=== PATIENT | female | born 1945 | race Two or more races ===

== ENCOUNTER 2016-12-18 12:08 | Emergency (ER) | payer MEDICARE, MEDICAID ==
[~2016-12-18] VITALS: Ht 160 cm; Wt 77.1 kg
[~2016-12-18 12:08] MED LIST: AMLO5CAP40; GLIP-110; METF-370 PO; OMEP20CA74 PO; PAR20T PO; QUE100T PO; QUET200T44
[2016-12-18 12:48] LABS: Basophils # (auto) 0 uL; Basophils % (auto) 0.4 % (0.0-2.0); Eosinophils # (auto) 0.1 uL; Eosinophils % (auto) 1.5 % (0.0-7.0); Hemoglobin 13.7 g/dL (12.2-16.2); Lymphocytes % (auto) 30.1 % (10.0-50.0); Mean Corpuscular Hemoglobin 29.6 pg (28.0-32.0); Mean Corpuscular Hgb Conc. 33.3 g/dL (32.0-36.0); Mean Corpuscular Volume 88.7 fL (80.0-100.0); Monocytes # (auto) 0.4 uL; Monocytes % (auto) 6.2 % (0.0-12.0); Neutrophils # (auto) 4.1 uL; Neutrophils % (auto) 61.8 % (37.0-80.0); Platelet Count (auto) 405 10^3/uL (140-450); Red Cell Distribution Width 13.6 % (11.8-14.3); White Blood Cell 6.6 10^3/uL (4.4-10.8)
[2016-12-18 13:11] LABS: Albumin 3.9 g/dL (3.4-5.0); Alkaline Phosphatase 110 U/L (45-117); Anion Gap 12 (5-15); Aspartate Aminotransferase 26 U/L (15-37); BUN/Creatinine Ratio 24.5; Bilirubin, Total 0.3 mg/dL (0.2-1.0); Blood Urea Nitrogen 24 mg/dL (7-18); Calcium 9.8 mg/dL (8.5-10.1); Carbon Dioxide 25 mmol/L (21-32); Chloride 97 mmol/L (98-107); GFR African American 72 mL/min; GFR Non-African American 60 mL/min; Glucose 265 mg/dL (74-106); Magnesium 2.1 mg/dL (1.6-2.6); Potassium 5.3 mmol/L (3.5-5.1); Sodium 134 mmol/L (136-145); Total Protein 9.4 g/dL (6.4-8.2)
[2016-12-18] MEDS ORDERED: SODIUM CHLORIDE 0.9% 1,000 ML IV ONE (14:53)
[2016-12-18] MEDS ORDERED: NALBUPHINE HCL 10 MG/1ml INJECTION IV ONE (15:00)
[2016-12-18] MEDS ORDERED: PROMETHAZINE HCL 25 MG/ML 1ML IV PRN (15:00)
[2016-12-18 17:37] VITALS: BP 141/59
== END 2016-12-18 17:52 | disposition home or self-care (01) ==
LOC: ER 12:08
DX: R10.9 Unspecified abdominal pain (principal); E11.9 Type 2 diabetes mellitus without complications; I10 Essential (primary) hypertension; R51 Headache; J45.909 Unspecified asthma, uncomplicated; E78.5 Hyperlipidemia, unspecified; Z90.49 Acquired absence of other specified parts of digestive tract; Z90.710 Acquired absence of both cervix and uterus
CPT/HCPCS: 36415; 71020; 80053; 83690; 83735; 84443; 84484; 85025; 96361; 96374; 96375; 99285; J2300; J2550; J7030; 93005

== ENCOUNTER 2017-06-08 16:19 | Emergency (ER) | payer MEDICARE, MEDICAID ==
[~2017-06-08] VITALS: Ht 154.9 cm; Wt 81.2 kg
[2017-06-08 16:31] VITALS: BP 199/65
[2017-06-08] MEDS ORDERED: MIDAZOLAM DRIP 50 mg/50mL 0 ML IV ONE (16:46)
[2017-06-08] MEDS ORDERED: HYDROcodone-ACET 10/325MG TAB PO ONE (19:30)
== END 2017-06-08 19:54 | disposition home or self-care (01) ==
LOC: ER 16:27
DX: R51 Headache (principal); J03.90 Acute tonsillitis, unspecified; J06.9 Acute upper respiratory infection, unspecified; E11.9 Type 2 diabetes mellitus without complications; I10 Essential (primary) hypertension; J45.909 Unspecified asthma, uncomplicated; Z90.49 Acquired absence of other specified parts of digestive tract; Z90.710 Acquired absence of both cervix and uterus
CPT/HCPCS: 93005; J2250

== ENCOUNTER 2023-09-12 12:40 | Inpatient (IN) | payer MEDICARE, MEDICAID ==
[~2023-09-12] VITALS: Ht 160 cm; Wt 77.9 kg
[~2023-09-12 12:40] MED LIST changes: +AMLO5CAP2; -AMLO5CAP40; -QUET200T44; +QUET200T45
[2023-09-12 13:40] LABS: Basophils # (auto) 0 10 ^3/uL (0-0.2); Basophils % (auto) 0.1 % (0.0-2.0); Eosinophils # (auto) 0.1 10 ^3/uL (0-0.8); Hematocrit 38.6 % (36.0-46.0); Hemoglobin 12.7 g/dL (12.2-16.2); Lymphocytes # (auto) 2.9 10 ^3/uL (0.4-5.4); Lymphocytes % (auto) 29.4 % (10.0-50.0); Mean Corpuscular Hemoglobin 29.6 pg (28.0-32.0); Mean Corpuscular Volume 89.6 fL (80.0-100.0); Monocytes # (auto) 0.8 10 ^3/uL (0-1.3); Monocytes % (auto) 8.5 % (0.0-12.0); Neutrophils # (auto) 5.9 10 ^3/uL (1.6-8.6); Red Cell Distribution Width 15.1 % (11.8-14.3); White Blood Cell 9.7 10^3/uL (4.4-10.8)
[2023-09-12 13:49] LABS: Chloride 103 mmol/L (98-107); Potassium 4.4 mmol/L (3.5-5.1); Sodium 138 mmol/L (136-145)
[2023-09-12 13:50] LABS: Anion Gap 8 (5-15); Calcium 9.6 mg/dL (8.7-10.4); Carbon Dioxide 27 mmol/L (20-30)
[2023-09-12 13:55] LABS: Glucose 93 mg/dL (74-106)
[2023-09-12 14:30] LABS: BUN/Creatinine Ratio 29.2 (10.0-20.0); Blood Urea Nitrogen 26 mg/dL (9-23)
[2023-09-12] MEDS ORDERED: ONDANSETRON HCL 4 MG/2 ML VIAL IV PRN (14:30)
[2023-09-12] MEDS ORDERED: DOCUSATE SOD 100 MG CAP PO PRN (14:30)
[2023-09-12] MEDS ORDERED: DEXTROSE (50%) 50ML SYRG IV PRN (14:30)
[2023-09-12 15:25] VITALS: PULSE 84; RESP 16; O2SAT 96
[2023-09-12] MEDS ORDERED: MORPHINE SULFATE INJ 2 MG/ml SYRG IV PRN (15:30)
[2023-09-12] MEDS ORDERED: NITROGLYCERIN 0.4 MG SL TAB SL PRN (15:30)
[2023-09-12 15:57] LABS: Urine Bacteria FEW /hpf (None Seen); Urine Blood Negative /uL (Negative); Urine Clarity Clear (Clear); Urine Color Colorless (Yellow); Urine Protein, UAD Negative (Negative); Urine Specific Gravity 1.011 (1.001-1.035); Urine Urobilinogen Normal (Negative); Urine WBC 13 /hpf (0 - 5)
[2023-09-12] MEDS: InsuLIN REG 1unit/0.01ml Soln (100units/ml) SC SCH (16:51)
[2023-09-12] MEDS: ACCU-CHEK COMFORT CURVE STRIP VI SCH (16:53)
[2023-09-12] MEDS: cefTRIAXone 1GM/50ML D5W 50 ML IV ONE (16:57)
[2023-09-12] MEDS: hydrALAZINE HCL 20 MG/ML VL IV PRN (18:21)
[2023-09-12] MEDS: HYDROcodone-ACET 5/325MG TAB PO PRN (18:27)
[2023-09-12 22:34] VITALS: BP 185/53; PULSE 86; RESP 18; TEMP 98.2; O2SAT 96
[2023-09-12] MEDS: SODIUM CHLOR 0.9% PF (SALINE LOCK) 10ML VIAL/SYR IV SCH (22:59)
[2023-09-12 23:12] VITALS: BP 185/53; PULSE 86; RESP 18; RESP 20; TEMP 98.2; O2SAT 96
[2023-09-12 23:29] VITALS: BP 137/57
[2023-09-13] VITALS (8 sets, daily range): BP systolic 136–159; BP diastolic 50–96; PULSE 63–85; RESP 15–18; TEMP 97.7–98.6; O2SAT 94–98
[2023-09-13 07:13] LABS: Basophils # (auto) 0.1 10 ^3/uL (0-0.2); Basophils % (auto) 0.5 % (0.0-2.0); Eosinophils # (auto) 0.1 10 ^3/uL (0-0.8); Eosinophils % (auto) 1.3 % (0.0-7.0); Hematocrit 39.3 % (36.0-46.0); Hemoglobin 12.9 g/dL (12.2-16.2); Lymphocytes # (auto) 2.9 10 ^3/uL (0.4-5.4); Lymphocytes % (auto) 28.1 % (10.0-50.0); Mean Corpuscular Hemoglobin 29.3 pg (28.0-32.0); Mean Corpuscular Hgb Conc. 32.8 g/dL (32.0-36.0); Mean Corpuscular Volume 89.5 fL (80.0-100.0); Monocytes # (auto) 0.7 10 ^3/uL (0-1.3); Monocytes % (auto) 7.1 % (0.0-12.0); Neutrophils # (auto) 6.5 10 ^3/uL (1.6-8.6); Nucleated Red Blood Cells % 0.1 %; Red Blood Cells 4.39 10^6/uL (4.0-5.20); Red Cell Distribution Width 14.8 % (11.8-14.3); White Blood Cell 10.3 10^3/uL (4.4-10.8)
[2023-09-13 07:36] LABS: Alanine Aminotransferase 14 U/L (7-40); Albumin 4.2 g/dL (3.2-4.8); Alkaline Phosphatase 99 U/L (46-116); Anion Gap 8 (5-15); Aspartate Aminotransferase 12 U/L (13-40); BUN/Creatinine Ratio 21.1 (10.0-20.0); Bilirubin, Total 0.2 mg/dL (0.2-1.0); Blood Urea Nitrogen 20 mg/dL (9-23); Calcium 9.6 mg/dL (8.7-10.4); Carbon Dioxide 26 mmol/L (20-30); Chloride 104 mmol/L (98-107); Glucose 119 mg/dL (74-106); Potassium 4.4 mmol/L (3.5-5.1); Sodium 138 mmol/L (136-145); Total Protein 7.3 g/dL (5.7-8.2)
[2023-09-13] MEDS: cefTRIAXone 1GM/50ML D5W 50 ML IV SCH (09:34)
[2023-09-13] MEDS: FAMOTIDINE (10MG/ML) 2ML VL IV SCH (09:35)
[2023-09-13] MEDS: ASPirin 81 mg TAB PO SCH (09:38)
[2023-09-13] MEDS ORDERED: GABA-1250 PO (10:47)
[2023-09-13] MEDS ORDERED: PAR20T PO (10:47)
[2023-09-13] MEDS ORDERED: GLIP10TA9 PO (10:47)
[2023-09-13] MEDS ORDERED: HYDR25TA4 PO (10:47)
[2023-09-13] MEDS ORDERED: TEMA30CA PO (10:47)
[2023-09-13] MEDS ORDERED: QUET200T45 PO (10:47)
[2023-09-13] MEDS: amLODIPine BESYLATE 5 MG TAB PO ONE (11:47)
[2023-09-13] MEDS: SODIUM CHLORIDE 0.9% 1,000 ML IV SCH (11:48)
[2023-09-13 11:59] LABS: COVID19 ANTIGEN SOFIA FIA NEGATIVE (NEGATIVE); Rapid Influenza A Negative (Negative); Rapid Influenza B Negative (Negative)
[2023-09-13] MEDS: ACETAMINOPHEN 325 MG TAB PO PRN (17:14)
[2023-09-14] VITALS (7 sets, daily range): BP systolic 105–163; BP diastolic 51–101; PULSE 67–88; RESP 16–18; TEMP 97.7–98.6; O2SAT 92–98
[2023-09-14 06:15] LABS: Alanine Aminotransferase 17 U/L (7-40); Albumin 4.2 g/dL (3.2-4.8); Alkaline Phosphatase 114 U/L (46-116); Anion Gap 10 (5-15); Aspartate Aminotransferase 19 U/L (13-40); BUN/Creatinine Ratio 16.7 (10.0-20.0); Bilirubin, Total 0.2 mg/dL (0.2-1.0); Blood Urea Nitrogen 14 mg/dL (9-23); Calcium 9.5 mg/dL (8.7-10.4); Carbon Dioxide 23 mmol/L (20-30); Chloride 104 mmol/L (98-107); Glucose 157 mg/dL (74-106); Potassium 4.4 mmol/L (3.5-5.1); Sodium 137 mmol/L (136-145); Total Protein 7.4 g/dL (5.7-8.2)
[2023-09-14] MEDS: amLODIPine BESYLATE 5 MG TAB PO SCH (09:08)
[2023-09-14] MEDS ORDERED: CEFD300C2 PO (10:06)
[2023-09-14] MEDS: PARoxetine 20 MG TAB PO ONE (13:40)
[2023-09-14] MEDS: GABAPENTIN 300 MG CAP PO SCH (15:16)
[2023-09-14] MEDS: QUEtiapine FUMARATE 100 MG TAB PO SCH (21:41)
[2023-09-15 01:00] VITALS: BP 136/47; PULSE 75; RESP 18; TEMP 98; O2SAT 94
[2023-09-15 05:00] VITALS: BP 111/50; PULSE 77; RESP 18; TEMP 97.5; O2SAT 95
[2023-09-15 08:00] VITALS: PULSE 72; RESP 18; O2SAT 93
[2023-09-15] MEDS: PARoxetine 20 MG TAB PO SCH (08:47)
[2023-09-15 09:00] VITALS: BP 144/57; PULSE 72; RESP 18; TEMP 97.9; O2SAT 93
[2023-09-15 10:08] VITALS: BP 142/96; PULSE 72; RESP 18; TEMP 36.6; O2SAT 93
== END 2023-09-15 10:55 | disposition home or self-care (01) | DRG 690 ==
LOC: ER 12:40 → TELE 15:17 → TELE-EAST 22:34 → EAST 09-13 15:00
PROVIDERS: ADMIT Nurse Practitioner Family; ATTEND Internal Medicine
DX: N30.00 Acute cystitis without hematuria (principal); I10 Essential (primary) hypertension; J45.909 Unspecified asthma, uncomplicated; F41.9 Anxiety disorder, unspecified; E78.5 Hyperlipidemia, unspecified; G90.9 Disorder of the autonomic nervous system, unspecified; E66.9 Obesity, unspecified; K43.9 Ventral hernia without obstruction or gangrene; Z20.822 Contact with and (suspected) exposure to COVID-19; F32.A Depression, unspecified; E11.65 Type 2 diabetes mellitus with hyperglycemia; Z90.710 Acquired absence of both cervix and uterus; Z90.49 Acquired absence of other specified parts of digestive tract; Z68.30 Body mass index [BMI] 30.0-30.9, adult
CPT/HCPCS: 36415; 71045; 74176; 80048; 80053; 81001; 82962; 83036; 84443; 84484; 85025; 87086; 87426; 87804; 93005; 96365; 96375; 99291; G0378; J1815; J3490

== ENCOUNTER 2023-11-28 12:04 | Emergency (ER) | payer MEDICARE, MEDICAID ==
[~2023-11-28] VITALS: Ht 162.6 cm; Wt 69.3 kg
[~2023-11-28 12:04] MED LIST changes: -AMLO5CAP2; +CEFD300C2 PO; +GABA-1250 PO; -GLIP-110; +GLIP10TA9 PO; +HYDR25TA4 PO; -OMEP20CA74 PO; -QUE100T PO; -QUET200T45; +QUET200T45 PO; +TEMA30CA PO
[2023-11-28 12:54] LABS: Urine Bacteria MOD /hpf (None Seen); Urine Blood Negative /uL (Negative); Urine Clarity Turbid (Clear); Urine Color Light-Yellow (Yellow); Urine Hyaline Cast FEW /lpf (0 - 2); Urine Mucus FEW (None Seen); Urine Protein, UAD TRACE (Negative); Urine Specific Gravity 1.019 (1.001-1.035); Urine Urobilinogen Normal (Negative); Urine WBC 33 /hpf (0 - 5)
[2023-11-28] MEDS: HYDROcodone-ACET 5/325MG TAB PO ONE (12:54)
[2023-11-28] MEDS: SODIUM CHLORIDE 0.9% 500 ML IVB ONE (12:54)
[2023-11-28 13:38] LABS: Basophils # (auto) 0 10 ^3/uL (0-0.2); Basophils % (auto) 0.3 % (0.0-2.0); Eosinophils # (auto) 0.1 10 ^3/uL (0-0.8); Eosinophils % (auto) 1.5 % (0.0-7.0); Hematocrit 36.1 % (36.0-46.0); Hemoglobin 11.9 g/dL (12.2-16.2); Lymphocytes # (auto) 2.5 10 ^3/uL (0.4-5.4); Lymphocytes % (auto) 29.6 % (10.0-50.0); Mean Corpuscular Hemoglobin 29.2 pg (28.0-32.0); Mean Corpuscular Volume 88.3 fL (80.0-100.0); Monocytes # (auto) 0.8 10 ^3/uL (0-1.3); Monocytes % (auto) 9.6 % (0.0-12.0); Platelet Count (auto) 377 10^3/uL (140-450); Red Blood Cells 4.09 10^6/uL (4.0-5.20); Red Cell Distribution Width 15.2 % (11.8-14.3); White Blood Cell 8.4 10^3/uL (4.4-10.8)
[2023-11-28 13:52] LABS: Alanine Aminotransferase 24 U/L (7-40); Albumin 4.3 g/dL (3.2-4.8); Alkaline Phosphatase 109 U/L (46-116); Anion Gap 6 (5-15); Aspartate Aminotransferase 19 U/L (13-40); BUN/Creatinine Ratio 22.2 (10.0-20.0); Bilirubin, Total 0.2 mg/dL (0.2-1.0); Blood Urea Nitrogen 18 mg/dL (9-23); Calcium 9.4 mg/dL (8.7-10.4); Carbon Dioxide 28 mmol/L (20-31); Chloride 107 mmol/L (98-107); Glucose 133 mg/dL (74-106); Lipase 46 U/L (12-53); Potassium 4.5 mmol/L (3.5-5.1); Sodium 141 mmol/L (136-145); Total Protein 7.1 g/dL (5.7-8.2)
[2023-11-28] MEDS ORDERED: CEFD300C2 PO (16:58)
[2023-11-28 17:10] VITALS: BP 160/55; PULSE 59; TEMP 98.2
[2023-11-28] MEDS: cefTRIAXone 1GM/50ML D5W 50 ML IV ONE (17:12)
[2023-11-28 17:52] VITALS: RESP 20; O2SAT 97
== END 2023-11-28 17:55 | disposition home or self-care (01) ==
LOC: ER 12:12
DX: N39.0 Urinary tract infection, site not specified (principal); E11.9 Type 2 diabetes mellitus without complications; F32.A Depression, unspecified; F41.9 Anxiety disorder, unspecified; I10 Essential (primary) hypertension; J45.909 Unspecified asthma, uncomplicated; Z79.84 Long term (current) use of oral hypoglycemic drugs; Z79.899 Other long term (current) drug therapy; Z87.440 Personal history of urinary (tract) infections; Z90.49 Acquired absence of other specified parts of digestive tract; Z90.710 Acquired absence of both cervix and uterus
CPT/HCPCS: 36415; 74176; 80053; 81001; 82962; 83690; 84484; 85025; 87086; 93005; 96361; 96365; 99285; J0696; J7040

== ENCOUNTER 2023-12-31 09:37 | Inpatient (IN) | payer MEDICARE, MEDICAID ==
[~2023-12-31] VITALS: Ht 162.6 cm; Wt 78.2 kg
[2023-12-31] VITALS (8 sets, daily range): BP systolic 147–164; BP diastolic 57–87; PULSE 71–98; RESP 14–19; TEMP 98.3–99.1; O2SAT 94–100
[2023-12-31 10:04] LABS: Basophils # (auto) 0 10 ^3/uL (0-0.2); Basophils % (auto) 0.2 % (0.0-2.0); Eosinophils # (auto) 0.2 10 ^3/uL (0-0.8); Eosinophils % (auto) 3.9 % (0.0-7.0); Hematocrit 36.4 % (36.0-46.0); Hemoglobin 11.9 g/dL (12.2-16.2); Lymphocytes # (auto) 1.4 10 ^3/uL (0.4-5.4); Lymphocytes % (auto) 23.6 % (10.0-50.0); Mean Corpuscular Hemoglobin 29.2 pg (28.0-32.0); Mean Corpuscular Hgb Conc. 32.8 g/dL (32.0-36.0); Mean Corpuscular Volume 88.9 fL (80.0-100.0); Monocytes # (auto) 0.5 10 ^3/uL (0-1.3); Monocytes % (auto) 8.4 % (0.0-12.0); Neutrophils # (auto) 3.9 10 ^3/uL (1.6-8.6); Neutrophils % (auto) 63.9 % (37.0-80.0); Platelet Count (auto) 378 10^3/uL (140-450); Red Blood Cells 4.09 10^6/uL (4.0-5.20); Red Cell Distribution Width 15.4 % (11.8-14.3); White Blood Cell 6.1 10^3/uL (4.4-10.8)
[2023-12-31 10:20] LABS: Alanine Aminotransferase 34 U/L (7-40); Albumin 4.2 g/dL (3.2-4.8); Alkaline Phosphatase 109 U/L (46-116); Anion Gap 9 (5-15); Aspartate Aminotransferase 25 U/L (13-40); BUN/Creatinine Ratio 18.3 (10.0-20.0); Bilirubin, Total 0.2 mg/dL (0.2-1.0); Blood Urea Nitrogen 17 mg/dL (9-23); Calcium 9.4 mg/dL (8.7-10.4); Carbon Dioxide 25 mmol/L (20-31); Chloride 109 mmol/L (98-107); Glucose 203 mg/dL (74-106); Potassium 3.8 mmol/L (3.5-5.1); Sodium 143 mmol/L (136-145); Total Protein 7.5 g/dL (5.7-8.2)
--- NOTE | 2023-12-31 10:20 | DVH ---
CLINICAL INFORMATION: 78 years old, Female; chest pain. TECHNIQUE: Single AP portable chest radiograph was obtained. COMPARISON: XY CHEST PORTABLE on DOS: 09/13/23 FINDINGS: Lungs: Mild atelectasis in the lung bases. No focal consolidation. No pneumothorax or pleural effusio n. Cardiac: Heart size is within normal limits. Pulmonary vasculature: Unremarkable. Mediastinum/joanie: Moderate atherosclerotic calcification of the aortic arch. Bones: No acute osseous abnormality identified. Other: Surgical clips in the right upper abdomen from prior cholecystectomy. IMPRESSION: 1. No evidence of acute disease in the chest. 2. Nonacute findings as detailed above.
--- NOTE | 2023-12-31 10:49 | ECG ---
[facility] Test Date: 2023-12-31 Test Time: 09:45:46 Pat Name: BC VASQUEZ Department: ER Room: [facility]2T Gender: F Technology Officer: LUDWIG : 1945 Requested By: MYRIAM JOHNSON Order Number: [id number] Reading MD: Benji Russell Measurements Intervals [place] Rate: 70 P: 49 HI: 167 QRS: 21 QRSD: 97 T: -28 QT: 377 QTc: 407 Interpretive Statements Sinus rhythm Probable LVH with secondary repol abnrm Electronically Signed On 01-05-2024 16:57:06 PST by Benji Russell Please click the below link to view image of tracing.
--- NOTE | 2023-12-31 10:53 | ED.PDOC ---
History of Present Illness HPI Comments This is a 78-year-old female who comes in with chief complaint of chest pain that is substernal in nature for approximately four days. The patient was also had a cough with the yellow sputum. At this time the patient says that the chest pain is an 8/10. There has been some fever as well as chills. The skyla ent does have a history of asthma and states that the shortness a breath may be associated with asthma. The patient denies any nausea or vomiting. The patient was able to ambulate into the emergency department's without any difficulty. Chief Complaint: Chest Pain Time Seen by MD: 09:42 Primary Care Provider: FLORENCIO Mello Notes: Nurses Notes, Medications, Allergies (No allergies to medications) Allergies: Coded Allergies: NO KNOWN ALLERGIES (Verified , 02/19/14) Home Meds Active Scripts Cefdinir (Cefdinir) 300 Mg Cap, 1 CAP PO BID for 5 Days, #14 CAP Prov:RAYMON TRIMBLE MD 11/28/23 Cefdinir (Cefdinir) 300 Mg Cap, 1 CAP PO BID for 7 Days, #14 CAP Prov:ADELA RIVAS MD 09/14/23 Reported Medications Metformin Hydrochloride (Metformin Hcl) 500 Mg Tab, 1000 MG PO BID for 30 Days, MG 09/13/23 Glipizide (Glipizide) 10 Mg Tab, 10 MG PO BID for 30 Days, MG 09/13/23 Temazepam (Temazepam) 30 Mg Cap, 15 MG PO QPM, CAP 09/13/23 Quetiapine Fumerate (QUETIAPINE FUMARATE) 200 Mg Tab, 200 MG PO QPM for 30 Days, MG 09/13/23 Paroxetine (PAXIL TABLET) 20 Mg Tb, 30 MG PO QAM, TAB 09/13/23 Hydrochlorothiazide (Hydrochlorothiazide) 25 Mg Tab, 25 MG PO DAILY for 30 Days, MG 09/13/23 Gabapentin (Gabapentin) 300 Mg Cap, 300 MG PO TID for 30 Days, MG 09/13/23 Information Source: Patient Mode of Arrival: Ambulatory Severity: Moderate Timing: Days Duration: Since onset Prehospital treatment: None Associated signs and symptoms Substernal chest pain associated with cough, fever and chills Past Medical History PAST MEDICAL HISTORY: Anxiety, Asthma, Depression, DM, High Lipids, HTN, UTI'S Surgical History: Cholecystectomy, Hysterectomy TECHNICAL SPECIALIST CYTOGENETICS History: No Pertinent TECHNICAL SPECIALIST CYTOGENETICS History Family History Family History: No family hx of DM, No family hx of HTN Social History Smoker: Non-Smoker Alcohol: Denies ETOH Use Drugs: Denies Drug Use Lives In: Home Constitutional: reports: fever; denies: chills, diaphoresis, fatigue, malaise, sweats, weakness, others EENTM: denies: blurred vision, double vision, ear bleeding, ear discharge, ear drainage, ear pain, ear ringing, eye pain, eye redness, hearing loss, mouth pain, mouth swelling, nasal discharge, nose bleeding, nose congestion, nose pain, photophobia, tearing, throat pain, throat swelling, voice changes, others Respiratory: reports: cough; denies: hemoptysis, orthopnea, SOB at rest, shortness of breath, SOB with excertion, stridor, wheezing, others Cardiovascular: reports: chest pain; denies: dizzy spells, diaphoresis, Dyspnea on exertion, edema, irregular heart beat, left arm pain, lightheadedness, palpitations, PND, syncope, others Gastrointestinal: denies: abdomen distended, abdominal pain, blood streaked bowels, constipated, diarrhea, dysphagia, difficulty swallowing, hematemesis, melena, nausea, poor appetite, poor fluid intake, rectal bleeding, rectal pain, vomiting, others Genitourinary: denies: abnormal vagina bleeding, burning, dyspareunia, dysuria, flank pain, frequency, hematuria, incontinence, pain, , vagina discharge, urgency, others Neurological: denies: dizziness, fainting, headache, left sided numbness, left sided weakness, numbness, paresthesia, pre-existing deficit, right sided numbness, right sided weakness, seizure, speech problems, tingling, tremors, weakness, others Musculoskeletal: denies: back pain, gout, joint pain, joint swelling, muscle pain, muscle stiffness, neck pain, others Integumetry: denies: bruises, change in color, change in hair/nails, dryness, laceration, lesions, lumps, rash, wounds, others Allergic/Immunocompromised: denies: Difficulty Healing, Frequent Infections, Hives, Itching, others Hematologic/Lymphatic: denies: anemia, blood clots, easy bleeding, easy bruising, swollen glands, others Endocrine: denies: excessive hunger, excessive sweating, excessive thirst, excessive urination, flushing, intolerance to cold, intolerance to heat, unexplained weight gain, unexplained weight loss, others Psychiatric: denies: anxiety, bipolar disorder, depression, hopeless, panic disorder, schizophrenia, sleepless, suicidal, others Physical Exam General Appearance: Moderate Distress HEENT: Normal ENT Inspection, Pharynx Normal, TMs Normal Neck: Full Range of Motion, Non-Tender, Normal, Normal Inspection Respiratory: Chest Non-Tender, Lungs Clear, No Accessory Muscle Use, No Respiratory Distress, Normal Breath Sounds Cardiovascular: No Edema, No JVD, No Murmur, No Gallop, Normal Peripheral Pulses, Regular Rate/Rhythm Breast Exam: Deferred Gastrointestinal: No Organomegaly, Non Tender, No Pulsatile Mass, Normal Bowel Sounds, Soft Genitalia: Deferred Pelvic: Deferred Rectal: Deferred Extremities: No calf tenderness, Normal capillary refill, Normal inspection, Normal range of motion, Non-tender, No pedal edema Musculoskeletal : Apperance: Normal Neurologic: Alert, mixer and scaler II-XII nml as Tested, No Motor Deficits, Normal Affect, Normal Mood, No Sensory Deficits Cerebellar Function: Normal Reflexes: Normal Skin: Dry, Normal Color, Warm Lymphatic: No Adenopathy Was a procedure done? Was a procedure done?: No EKG EKG : Pulse Rate (adult): 70 [place]: Normal Cardiac Rhythm: NSR Block: None ST: Nonsp Differential Dx Considerations may include: Generalized weakness, chest pain, ACS, DE X-Ray, Labs, Meds, VS Vital Signs Date Time Temp Pulse Resp B/P (MAP) Pulse Ox O2 Delivery O2 Flow Rate FiO2 12/31/23 10:53 70 12/31/23 10:05 Room Air* 0 21 12/31/23 10:02 98.3 68 18 116/53 (74) 98 98.3 12/31/23 09:55 98.0 74 20 165/77 (106) 98 12/31/23 09:55 74 20 98 Room Air 12/31/23 09:45 70 Lab Test 12/31/23 10:40 12/31/23 09:40 Range/Units Lactic Acid Level 1.8 0.4-2.0 mmol/L Troponin I High Sensitivity Pending < 3 L </=34 ng/L White Blood Count 6.1 4.4-10.8 10^3/uL Red Blood Count 4.09 4.0-5.20 10^6/uL Hemoglobin 11.9 L 12.2-16.2 g/dL Hematocrit 36.4 36.0-46.0 % Mean Corpuscular Volume 88.9 80.0-100.0 fL Mean Corpuscular Hemoglobin 29.2 28.0-32.0 pg Mean Corpuscular Hemoglobin Concent 32.8 32.0-36.0 g/dL Red Cell Distribution Width 15.4 H 11.8-14.3 % Platelet Count 378 140-450 10^3/uL Mean Platelet Volume 7.4 6.9-10.8 fL Neutrophils (%) (Auto) 63.9 37.0-80.0 % Lymphocytes (%) (Auto) 23.6 10.0-50.0 % Monocytes (%) (Auto) 8.4 0.0-12.0 % Eosinophils (%) (Auto) 3.9 0.0-7.0 % Basophils (%) (Auto) 0.2 0.0-2.0 % Neutrophils # (Auto) 3.9 1.6-8.6 10 ^3/uL Lymphocytes # (Auto) 1.4 0.4-5.4 10 ^3/uL Monocytes # (Auto) 0.5 0-1.3 10 ^3/uL Eosinophils # (Auto) 0.2 0-0.8 10 ^3/uL Basophils # (Auto) 0 0-0.2 10 ^3/uL Nucleated Red Blood Cells 0.0 % Sodium Level 143 136-145 mmol/L Potassium Level 3.8 3.5-5.1 mmol/L Chloride Level 109 H 98-107 mmol/L Carbon Dioxide Level 25 20-31 mmol/L Anion Gap 9 5-15 Blood Urea Nitrogen 17 9-23 mg/dL Creatinine 0.93 0.550-1.02 mg/dL Glomerular Filtration Rate Calc 64 >90 mL/min BUN/Creatinine Ratio 18.3 10.0-20.0 Serum Glucose 203 H 74-106 mg/dL Calcium Level 9.4 8.7-10.4 mg/dL Total Bilirubin 0.2 0.2-1.0 mg/dL Aspartate Amino Transferase (AST) 25 13-40 U/L Alanine Aminotransferase (ALT) 34 7-40 U/L Alkaline Phosphatase 109 46-116 U/L Total Protein 7.5 5.7-8.2 g/dL Albumin 4.2 3.2-4.8 g/dL IV Hep-Lock was established The patient's CBC is within normal limits The chemistry panel is within normal limits The lactic acid level is within normal limits At this time, the patient was being admitted to the hospitalist Chest x-ray shows: No sign of any abnormalities A cardiology consult will be ordered The patient was being admitted to the hospitalist Images Reviewed?: Images reviewed and evaluated by me Time of 1ST Reevaluation: 10:52 Reevaluation 1ST: Unchanged Patient Education/Counseling: Diagnosis, Treatment, Prognosis Family Education/Counseling: No Family Present Departure 1 Departure Time of Disposition: 10:51 Impression: Primary Impression: Acute coronary syndrome Disposition: 09 ADMITTED INPATIENT [facility]mit to: [facility] Condition: Fair Critical Care Note Critical Care Time?: Yes (35 min-critical care time only) Stability Stability form required: Yes Unstable for transfer: Telemetry monitoring (Telemetry monitoring required), ED Physician Assesment (Clinical assesment) Heart Score Heart Score: Heart Score Response (Comments) Value History Moderate Suspicious 1 EKG Repolarization Disturb 1 Age >65 2 Risk Factors >3 or Hx ASHD 2 Troponin Normal limit 0 Total 6 MYRIAM JOHNSON MD Dec 31, 2023 10:53
--- NOTE | 2023-12-31 11:46 | ECG ---
[facility] Test Date: 2023-12-31 Test Time: 11:45:48 Pat Name: BC VASQUEZ Department: ED Room: [facility]2T Gender: F Employment Coach: : 1945 Requested By: MYRIAM JOHNSON Order Number: [id number] Reading MD: Benji Russell Measurements Intervals [place] Rate: 67 P: 18 NC: 185 QRS: 5 QRSD: 85 T: 50 QT: 402 QTc: 425 Interpretive Statements Sinus rhythm Electronically Signed On 01-05-2024 16:58:53 PST by Benji Russell Please click the below link to view image of tracing.
[2023-12-31] MEDS ORDERED: NITROGLYCERIN 0.4 MG SL TAB SL PRN (12:30)
[2023-12-31] MEDS ORDERED: ALBUTEROL SULF 2.5 MG/0.5ML(0.5%) NEB SOLN NEB PRN (12:30)
[2023-12-31] MEDS ORDERED: HYDROcodone-ACET 5/325MG TAB PO PRN (12:30)
[2023-12-31] MEDS: methylPREDNISolone SOD SUCC 125 MG/2 ML VL IV SCH (12:30)
[2023-12-31] MEDS ORDERED: ACETAMINOPHEN 325 MG TAB PO PRN (12:30)
[2023-12-31] MEDS ORDERED: IPRATROPIUM BROM 0.5 MG/2.5ML INH SOL NEB PRN (12:30)
[2023-12-31] MEDS ORDERED: DEXTROSE (50%) 50ML SYRG IV PRN (12:30)
[2023-12-31] MEDS ORDERED: ONDANSETRON HCL 4 MG/2 ML VIAL IV PRN (12:30)
[2023-12-31] MEDS ORDERED: MORPHINE SULFATE INJ 2 MG/ml SYRG IV PRN ×2 (12:30)
--- NOTE | 2023-12-31 12:35 | DVHHP2 ---
History of Present Illness Reason for Visit: Cough History of Present Illness This 78-year-old female presents in the ED with a chief complaint of shortness of breath. The patient reports progressive shortness of breath associated with cough, mucus, fever, chills, and chest pain when coughing started four days ago. Patient denies contact with people that are sick. Currently denies chest pain, MITCHELL, shortness of breath, abdominal pain, or other acute symptoms. Past medical history of asthma, diabetes, hypertension, depression, hyperlipidemia, and anxiety. Past Medical History As stated in HPI Past Surgical History Cholecystectomy Hysterectomy Family History Reviewed, non-contributory to the management of this case. Past Social History The patient lives at home, denies smoking, alcohol or illicit drugs abuse. Review of Systems Constitutional: Yes: Malaise; No: Fever, Chills, Sweats, Weakness, Other Eyes: No: Pain, Vision change, Conjunctivae inflammation, Eyelid inflammation, Other, Redness ENT: No: Ear pain, Ear discharge, Nose pain, Nose discharge, Nose congestion, Mouth pain, Mouth swelling, Throat pain, Throat swelling, Other Respiratory: Cough, Shortness of breath, Sputum; No: Dry, SOB with excertion, Wheezing, Hemoptysis, Pleuritic Pain, Wheezing, Other Cardiovascular: Chest Pain; No: Palpitations, Orthopnea, Paroxysmal Noc. Dyspnea, Edema, Lt Headedness, Other Gastrointestinal: No: Nausea, Vomiting, Abdominal Pain, Diarrhea, Constipation, Melena, Hematochezia, Other Genitourinary: No Dysuria, No Frequency, No Incontinence, No Hematuria, No Retention, No Other Musculoskeletal: No: other, neck pain, shoulder pain, arm pain, back pain, hand pain, leg pain, foot pain Skin: No: Rash, Lesions, Jaundice, Bruising, Other Neurological: No: Weakness, Numbness, Incoordination, Change in speech, Confusion, Seizures, Other Allergies: Coded Allergies: NO KNOWN ALLERGIES (Verified , 02/19/14) Exam Vital Signs Vital Signs Date Time Temp Pulse Resp B/P (MAP) Pulse Ox O2 Delivery O2 Flow Rate FiO2 12/31/23 12:13 73 16 177/80 (112) 98 12/31/23 10:05 Room Air* 0 21 12/31/23 10:02 98.3 98.3 General Appearance: Alert, Oriented X3, Cooperative, mild distress HEENT: Atraumatic, PERRLA, EOMI Respiratory: Clear to auscultation Cardiovascular: Regular rate, Normal S1, Normal S2, No murmurs Abdominal: Normal bowel sounds, Soft, No tenderness, No hepatospenomegaly Extremities: No clubbing, No cyanosis, No edema, Normal pulses Skin: No rashes, No breakdown, No significant lesion Neuro: Normal gait, Normal speech, Strength at 5/5 X4 ext, Normal tone, Sensation intact Psych/Mental Status: Mental status NL Labs/Xrays Labs Test 12/31/23 10:40 12/31/23 09:40 Range/Units Lactic Acid Level 1.8 0.4-2.0 mmol/L Troponin I High Sensitivity < 3 L </=34 ng/L White Blood Count 6.1 4.4-10.8 10^3/uL Red Blood Count 4.09 4.0-5.20 10^6/uL Hemoglobin 11.9 L 12.2-16.2 g/dL Hematocrit 36.4 36.0-46.0 % Mean Corpuscular Volume 88.9 80.0-100.0 fL Mean Corpuscular Hemoglobin 29.2 28.0-32.0 pg Mean Corpuscular Hemoglobin Concent 32.8 32.0-36.0 g/dL Red Cell Distribution Width 15.4 H 11.8-14.3 % Platelet Count 378 140-450 10^3/uL Mean Platelet Volume 7.4 6.9-10.8 fL Neutrophils (%) (Auto) 63.9 37.0-80.0 % Lymphocytes (%) (Auto) 23.6 10.0-50.0 % Monocytes (%) (Auto) 8.4 0.0-12.0 % Eosinophils (%) (Auto) 3.9 0.0-7.0 % Basophils (%) (Auto) 0.2 0.0-2.0 % Neutrophils # (Auto) 3.9 1.6-8.6 10 ^3/uL Lymphocytes # (Auto) 1.4 0.4-5.4 10 ^3/uL Monocytes # (Auto) 0.5 0-1.3 10 ^3/uL Eosinophils # (Auto) 0.2 0-0.8 10 ^3/uL Basophils # (Auto) 0 0-0.2 10 ^3/uL Nucleated Red Blood Cells 0.0 % Sodium Level 143 136-145 mmol/L Potassium Level 3.8 3.5-5.1 mmol/L Chloride Level 109 H 98-107 mmol/L Carbon Dioxide Level 25 20-31 mmol/L Anion Gap 9 5-15 Blood Urea Nitrogen 17 9-23 mg/dL Creatinine 0.93 0.550-1.02 mg/dL Glomerular Filtration Rate Calc 64 >90 mL/min BUN/Creatinine Ratio 18.3 10.0-20.0 Serum Glucose 203 H 74-106 mg/dL Calcium Level 9.4 8.7-10.4 mg/dL Total Bilirubin 0.2 0.2-1.0 mg/dL Aspartate Amino Transferase (AST) 25 13-40 U/L Alanine Aminotransferase (ALT) 34 7-40 U/L Alkaline Phosphatase 109 46-116 U/L Total Protein 7.5 5.7-8.2 g/dL Albumin 4.2 3.2-4.8 g/dL OCEDURE(s): CXRP - CHEST PORTABLE REASON: CP ORDER NUMBER(s): [id number], ACCESSION NUMBER(s): [id number] CLINICAL INFORMATION: 78 years old, Female; chest pain. TECHNIQUE: Single AP portable chest radiograph was obtained. COMPARISON: XY CHEST PORTABLE on DOS: 09/13/23 FINDINGS: Lungs: Mild atelectasis in the lung bases. No focal consolidation. No pneumot horax or pleural effusion. Cardiac: Heart size is within normal limits. Pulmonary vasculature: Unremarkable. Mediastinum/joanie: Moderate atherosclerotic calcification of the aortic arch. Bones: No acute osseous abnormality identified. Other: Surgical clips in the right upper abdomen from prior cholecystectomy. IMPRESSION: 1. No evidence of acute disease in the chest. 2. Nonacute findings as detailed above. Assessment/Plan Assessment/Plan # acute on chronic respiratory failure # acute asthma exacerbation # rule out Covid-19 # rule out influenza Admit to telemetry unit DuoNeb O2 supplement Steroids Chest x-ray in a.m. 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
[2023-12-31] MEDS: GABAPENTIN 300 MG CAP PO SCH (14:04)
[2023-12-31 15:46] LABS: COVID19 ANTIGEN SOFIA FIA NEGATIVE (NEGATIVE); Rapid Influenza A Negative (Negative); Rapid Influenza B Negative (Negative)
[2023-12-31] MEDS: ACCU-CHEK COMFORT CURVE STRIP VI SCH (17:13)
[2023-12-31] MEDS: InsuLIN REG 1unit/0.01ml Soln (100units/ml) SC SCH (17:17)
[2023-12-31] MEDS: ALBUTEROL SULF 2.5 MG/0.5ML(0.5%) NEB SOLN NEB SCH (19:30)
[2023-12-31] MEDS: IPRATROPIUM BROM 0.5 MG/2.5ML INH SOL NEB SCH (19:30)
[2023-12-31] MEDS: QUEtiapine FUMARATE 100 MG TAB PO SCH (21:29)
[2023-12-31] MEDS: glipiZIDE 5 MG TAB PO SCH (21:29)
[2023-12-31] MEDS: TEMAZEPAM 15 MG CAP PO PRN (21:37)
[2023-12-31] MEDS ORDERED: GEMF-66 PO (22:15)
[2024-01-01] VITALS (16 sets, daily range): BP systolic 107–171; BP diastolic 45–61; PULSE 70–94; RESP 16–20; TEMP 97.5–98.6; O2SAT 93–100
[2024-01-01] MEDS: PARoxetine 20 MG TAB PO SCH (06:04)
[2024-01-01 06:40] LABS: Basophils # (auto) 0 10 ^3/uL (0-0.2); Basophils % (auto) 0.1 % (0.0-2.0); Eosinophils # (auto) 0 10 ^3/uL (0-0.8); Hematocrit 34.2 % (36.0-46.0); Hemoglobin 11.6 g/dL (12.2-16.2); Lymphocytes # (auto) 1.3 10 ^3/uL (0.4-5.4); Lymphocytes % (auto) 12.7 % (10.0-50.0); Mean Corpuscular Hemoglobin 29.5 pg (28.0-32.0); Mean Corpuscular Hgb Conc. 33.8 g/dL (32.0-36.0); Mean Corpuscular Volume 87.4 fL (80.0-100.0); Monocytes # (auto) 0.5 10 ^3/uL (0-1.3); Monocytes % (auto) 5.1 % (0.0-12.0); Neutrophils # (auto) 8.5 10 ^3/uL (1.6-8.6); Neutrophils % (auto) 82.1 % (37.0-80.0); Nucleated Red Blood Cells % 0.1 %; Platelet Count (auto) 399 10^3/uL (140-450); Red Blood Cells 3.92 10^6/uL (4.0-5.20); Red Cell Distribution Width 15.4 % (11.8-14.3); White Blood Cell 10.3 10^3/uL (4.4-10.8)
[2024-01-01 06:55] LABS: Alanine Aminotransferase 26 U/L (7-40); Alkaline Phosphatase 100 U/L (46-116); Anion Gap 12 (5-15); Calcium 9.4 mg/dL (8.7-10.4); Carbon Dioxide 20 mmol/L (20-31); Chloride 110 mmol/L (98-107); Glucose 208 mg/dL (74-106); Potassium 4.1 mmol/L (3.5-5.1); Sodium 142 mmol/L (136-145)
[2024-01-01 06:57] LABS: Albumin 3.9 g/dL (3.2-4.8); Aspartate Aminotransferase 17 U/L (13-40)
[2024-01-01 06:58] LABS: Bilirubin, Total 0.2 mg/dL (0.2-1.0)
[2024-01-01 07:37] LABS: BUN/Creatinine Ratio 24.2 (10.0-20.0); Blood Urea Nitrogen 24 mg/dL (9-23)
--- NOTE | 2024-01-01 08:05 | DVH ---
Procedure: XY CHEST PORTABLE 01/01/2024 07:43 AM Indication: sob Comparison: XY CHEST PORTABLE on DOS: 12/31/23, XY CHEST PORTABLE on DOS: 09/13/23 TECHNIQUE: XY CHEST PORTABLE FINDINGS: Medical devices: None. Cardiomediastinal: The heart is normal in size. Pulmonary vasculature is within normal limits. Athero sclerotic calcification of the aortic arch noted. Lungs: No focal pulmonary opacity is seen. The costophrenic angles are clear. No pneumothorax. Bones/soft tissues: No acute abnormality is noted. IMPRESSION: 1. No acute cardiopulmonary disease.
[2024-01-01 08:11] LABS: Urine Bacteria None Seen /hpf (None Seen)
[2024-01-01 08:18] LABS: Urine Blood Negative /uL (Negative); Urine Budding Yeast MANY /hpf (None Seen); Urine Clarity Clear (Clear); Urine Color Yellow (Yellow); Urine Hyaline Cast FEW /lpf (0 - 2); Urine Mucus FEW (None Seen); Urine Protein, UAD 1+ (Negative); Urine Specific Gravity 1.026 (1.001-1.035); Urine Urobilinogen Normal (Negative); Urine WBC 5 /hpf (0 - 5); Urine pH 5.5 (5.0-9.0)
[2024-01-01] MEDS: ENOXAPARIN SOD 40 MG/0.4 ML SYRINGE SC SCH (10:12)
[2024-01-01] MEDS: hydroCHLOROthiazide 25 MG TAB PO SCH (10:19)
[2024-01-01] MEDS: INSULIN LANTUS (GLARGINE) 1 /0.01ml (100units/ml) SC ONE (11:45)
--- NOTE | 2024-01-01 11:48 | DVHPN2 ---
Subjective 78-year-old female with a history of asthma came with a cough productive of yellow sputum and shortness of breaths and chest pain Chest x-ray is negative for pneumonia She has wheezing Troponins are negative Changes from previous H/P or p: Changes Eyes: No Pain, No Vision change, No Conjunctivae inflammation, No Eyelid inflammation, No Other, No Redness ENT: No Ear pain, No Ear discharge, No Nose pain, No Nose discharge, No Nose congestion, No Mouth pain, No Mouth swelling, No Throat pain, No Throat swelling, No Other Cardiovascular: Chest Pain; No Palpitations, No Orthopnea, No Paroxysmal Noc. Dyspnea, No Edema, No Lt Headedness, No Other Respiratory: Cough; No Dry; Shortness of breath; No SOB with excertion, No Wheezing, No Hemoptysis, No Pleuritic Pain; Sputum; No Other Gastrointestinal: No Nausea, No Vomiting, No Abdominal Pain, No Diarrhea, No Constipation, No Melena, No Hematochezia, No Other Genitourinary: No Dysuria, No Frequency, No Incontinence, No Hematuria, No Retention, No Other Musculoskeletal: No other, No neck pain, No shoulder pain, No arm pain, No back pain, No hand pain, No leg pain, No foot pain Skin: No Rash, No Lesions, No Jaundice, No Bruising, No Other Objective Vitals Vital Signs Date Time Temp Pulse Resp B/P (MAP) Pulse Ox O2 Delivery O2 Flow Rate FiO2 01/01/24 10:19 143/58 01/01/24 09:00 97.5 84 18 93 97.5 01/01/24 08:10 Room Air* 0 21 Intake/Output Intake and Output 01/01/24 07:00 Intake Total 700 ml Balance 700 ml Intake Oral 700 ml # Voids 2 General Appearance: Alert, Oriented X3, Cooperative, mild distress Lungs: Other (Diffuse bilateral wheezing) Cardiovascular: Regular rate, Normal S1, Normal S2, No murmurs Abdomen: Normal bowel sounds, Soft, No tenderness Extremities: No edema Medications Current Medications Medications Dose Ordered Sig/Noreen Route Start Time Stop Time Status Last Admin Dose Admin Acetaminophen/ Hydrocodone Bitart 1 tab Q4HP PRN PO 12/31/23 12:30 Ondansetron HCl 4 mg Q4HP PRN IV 12/31/23 12:30 Enoxaparin Sodium 40 mg DAILY SC 01/01/24 10:00 01/01/24 10:12 40 MG Acetaminophen 650 mg Q6HP PRN PO 12/31/23 12:30 Morphine Sulfate 2 mg Q4HPRN PRN IV 12/31/23 12:30 Nitroglycerin 0.4 mg Q5MINP PRN SL 12/31/23 12:30 Morphine Sulfate 2 mg Q30M PRN IV 12/31/23 12:30 Albuterol 2.5 mg Q4HPRN PRN NEB 12/31/23 12:30 Albuterol 2.5 mg Q6HWA NEB 12/31/23 18:00 01/01/24 06:36 2.5 MG Ipratropium [place] 0.5 mg Q4HPRN PRN NEB 12/31/23 12:30 Ipratropium [place] 0.5 mg Q6HWA NEB 12/31/23 18:00 01/01/24 06:36 0.5 MG Methylprednisolone Sodium Succinate 60 mg BID IV 12/31/23 12:30 01/01/24 10:11 60 MG Gabapentin 300 mg TID PO 12/31/23 14:00 01/01/24 06:04 300 MG Hydrochlorothiazide 25 mg DAILY PO 01/01/24 10:00 01/01/24 10:19 25 MG Paroxetine HCl 30 mg QAM PO 01/01/24 07:00 01/01/24 06:04 30 MG Glipizide 10 mg BID PO 12/31/23 22:00 01/01/24 10:19 10 MG Quetiapine Fumarate 200 mg HS PO 12/31/23 22:00 12/31/23 21:29 200 MG Temazepam 15 mg QHSP PRN PO 12/31/23 22:00 12/31/23 21:37 15 MG Diagnostic Test (Pha) 1 strip ACHS 12/31/23 17:00 01/01/24 06:04 1 STRIP Insulin Human Regular ACHS SC 12/31/23 17:00 01/01/24 06:19 3 UNITS Dextrose 50 ml UD PRN IV 12/31/23 12:30 Hydralazine HCl 10 mg Q6HP PRN IV 12/31/23 12:45 Laboratory Results Laboratory Tests 01/01/24 05:29 Chemistry Test 01/01/24 05:29 Albumin 3.9 g/dL (3.2-4.8) Calcium Level 9.4 mg/dL (8.7-10.4) Total Protein 7.0 g/dL (5.7-8.2) LFT Test 01/01/24 05:29 Alanine Aminotransferase (ALT) 26 U/L (7-40) Alkaline Phosphatase 100 U/L (46-116) Aspartate Amino Transferase (AST) 17 U/L (13-40) Total Bilirubin 0.2 mg/dL (0.2-1.0) Urinalysis Test 01/01/24 08:00 Urine Color Yellow (Yellow) Urine Clarity Clear (Clear) Urine pH 5.5 (5.0-9.0) Urine Specific [place] 1.026 (1.001-1.035) Urine Protein 1+ (Negative) H Urine Ketones Trace (Negative) Urine Blood Negative /uL (Negative) Urine Nitrite Negative (Negative) Urine Bilirubin Negative (Negative) Urine Urobilinogen Normal mg/dL (Negative) Urine Leukocyte Esterase Negative /uL (Negative) Urine RBC 1 /hpf (0 - 4) Urine WBC 5 /hpf (0 - 5) Urine Squamous Epithelial Cells Few /hpf (<5) Urine Bacteria None seen /hpf (None Seen) Urine Hyaline Casts Few /lpf (0 - 2) Urine Granular Casts Few /lpf (0) Urine Mucus Few (None Seen) Urine Yeast (Budding) Many /hpf (None Seen) Urine Glucose 1+ mg/dL (Normal) H Microbiology Microbiology Date/Time Source Procedure Growth Status 12/31/23 10:40 Blood Blood Culture - Preliminary NO GROWTH AFTER 24 HOURS OF INCUBATION. Resulted Assessment/Plan Assessment/Plan Acute respiratory distress Asthma exacerbation Acute bronchitis Type 2 diabetes Obesity Hypertension History of depression and anxiety Dyslipidemia Plan Oxygen p.r.n. Continue steroids IV Med neb treatments as needed Add Zithromax IV Resume Lantus 15 units twice a day Full code Advance directives discussed for 18 minutes Resume the home medications Accu-Cheks Plan discussed with: Patient Date of Service: Jan 01, 2024 Billing Provider: MICHELLE BEARD MD Common Visit Codes: [id number] INP/OBS CARE(HIGH) Secondary Visit Codes: [id number] CARE PLAN 30 MINUTES MICHELLE BEARD MD Jan 01, 2024 11:47
[2024-01-01] MEDS: AZITHROMYCIN 500MG/ 250ML 250 ML IV ONE (12:42)
--- NOTE | 2024-01-01 13:13 | DVHSR ---
APPROVED REPORT EXAM: Two-dimensional and M-mode echocardiogram with Doppler and color Doppler. Blood Pressure: 107/46 mmHg INDICATION r/o ACS RISK FACTORS Height: 5'4", Weight: 172 DIMENSIONS LVDd3.9 (3.8-5.7cm)LA (2D)4.1 (1.9-4.0cm)Aortic Root (2.0-3.7cm) LVDs2.1 (2.5-4.0cm)LA (MM) (1.9-4.0cm)Aortic Cusp Exc (1.5-2.0cm) EF (%) 79.0 (55-70%)Rt. Atrium3.6 (1.9-4.0cm)Asc. Aorta cm IVSd1.3 (0.7-1.1cm)RV (D) (1.8-2.4cm) Mitral Valve MitralMitral Stenosis E wave0.75m/sMV Mean GR.mmHg A wave1.05m/sMV Peak GR.mmHg E/A ratio0.72D MVAcm2 DECEL [id number] 1/2 Timems Aortic Valve Aortic ValveAortic Stenosis V11.66m/Gigi Mean GR.9mmHg V21.67m/Gigi Peak GR.11mmHg LVOT Diameter2.0 (1.8-2.4cm)Doppler AVA3.12cm2 Tricuspid Valve TR Velocity2.56m/s [id number] Other Information Quality : Technically LimitedRhythm : Technically limited study due to body habitus. Conclusion Normal left ventricular size and dimension. Normal left ventricular systolic function estimated ejec tion fraction 55%. There is a grade 1 diastolic dysfunction. Normal right ventricular size and dimension. Normal right ventricular systolic function. Slightly i ncreased right ventricular systolic pressure 29 mm of mercury. Normal biatrial size and dimension. Normal aortic valve structure and function. Normal mitral valve structure and function. Normal tricuspid valve structure function. The pulmonary valve is grossly normal. No pericardial effusion.
[2024-01-01] MEDS: hydrALAZINE HCL 20 MG/ML VL IV PRN (17:50)
[2024-01-01] MEDS: INSULIN LANTUS (GLARGINE) 1 /0.01ml (100units/ml) SC SCH (21:16)
[2024-01-02] VITALS (16 sets, daily range): BP systolic 99–156; BP diastolic 52–62; PULSE 71–101; RESP 15–19; TEMP 97.7–98.5; O2SAT 91–100
[2024-01-02] MEDS: AZITHROMYCIN 500MG/ 250ML 250 ML IV SCH (09:20)
--- NOTE | 2024-01-02 10:09 | DVHPN2 ---
Subjective Breathing is better Not back to baseline yet though Blood sugars high Changes from previous H/P or p: Changes Eyes: No Pain, No Vision change, No Conjunctivae inflammation, No Eyelid inflammation, No Other, No Redness ENT: No Ear pain, No Ear discharge, No Nose pain, No Nose discharge, No Nose congestion, No Mouth pain, No Mouth swelling, No Throat pain, No Throat swelling, No Other Cardiovascular: Chest Pain Respiratory: Cough, Shortness of breath, Sputum Gastrointestinal: No Nausea, No Vomiting, No Abdominal Pain, No Diarrhea, No Constipation, No Melena, No Hematochezia, No Other Genitourinary: No Dysuria, No Frequency, No Incontinence, No Hematuria, No Retention, No Other Musculoskeletal: No other, No neck pain, No shoulder pain, No arm pain, No back pain, No hand pain, No leg pain, No foot pain Skin: No Rash, No Lesions, No Jaundice, No Bruising, No Other Objective Vitals Vital Signs Date Time Temp Pulse Resp B/P (MAP) Pulse Ox O2 Delivery O2 Flow Rate FiO2 01/02/24 09:21 152/55 01/02/24 08:54 97.7 82 15 92 97.7 01/02/24 06:14 Room Air* 0 21 Intake/Output Intake and Output 01/02/24 07:00 Intake Total 1540 ml Balance 1540 ml Intake Oral 1290 ml IV Total 250 ml # Voids 8 # Bowel Movements 1 General Appearance: Alert, Oriented X3, Cooperative, mild distress Lungs: Clear to auscultation, Other (Clear to auscultation bilaterally) Cardiovascular: Regular rate, Normal S1, Normal S2, No murmurs Abdomen: Normal bowel sounds, Soft, No tenderness Extremities: No edema Medications Current Medications Medications Dose Ordered Sig/Noreen Route Start Time Stop Time Status Last Admin Dose Admin Acetaminophen/ Hydrocodone Bitart 1 tab Q4HP PRN PO 12/31/23 12:30 Ondansetron HCl 4 mg Q4HP PRN IV 12/31/23 12:30 Enoxaparin Sodium 40 mg DAILY SC 01/01/24 10:00 01/02/24 09:20 40 MG Acetaminophen 650 mg Q6HP PRN PO 12/31/23 12:30 Morphine Sulfate 2 mg Q4HPRN PRN IV 12/31/23 12:30 Nitroglycerin 0.4 mg Q5MINP PRN SL 12/31/23 12:30 Morphine Sulfate 2 mg Q30M PRN IV 12/31/23 12:30 Albuterol 2.5 mg Q4HPRN PRN NEB 12/31/23 12:30 Albuterol 2.5 mg Q6HWA NEB 12/31/23 18:00 01/02/24 06:14 2.5 MG Ipratropium [place] 0.5 mg Q4HPRN PRN NEB 12/31/23 12:30 Ipratropium [place] 0.5 mg Q6HWA NEB 12/31/23 18:00 01/02/24 06:14 0.5 MG Methylprednisolone Sodium Succinate 60 mg BID IV 12/31/23 12:30 01/02/24 09:20 60 MG Gabapentin 300 mg TID PO 12/31/23 14:00 01/02/24 06:24 300 MG Hydrochlorothiazide 25 mg DAILY PO 01/01/24 10:00 01/02/24 09:21 25 MG Paroxetine HCl 30 mg QAM PO 01/01/24 07:00 01/02/24 06:24 30 MG Glipizide 10 mg BID PO 12/31/23 22:00 01/01/24 21:08 10 MG Quetiapine Fumarate 200 mg HS PO 12/31/23 22:00 01/01/24 21:08 200 MG Temazepam 15 mg QHSP PRN PO 12/31/23 22:00 01/01/24 21:09 15 MG Diagnostic Test (Pha) 1 strip ACHS 12/31/23 17:00 01/02/24 06:25 1 STRIP Insulin Human Regular ACHS SC 12/31/23 17:00 01/02/24 06:25 9 UNITS Dextrose 50 ml UD PRN IV 12/31/23 12:30 Hydralazine HCl 10 mg Q6HP PRN IV 12/31/23 12:45 01/02/24 00:02 10 MG Azithromycin 250 ml @ 125 mls/hr DAILY IV 01/02/24 10:00 01/02/24 09:20 125 MLS/HR Insulin Glargine 15 units BID@1000,2200 SC 01/01/24 22:00 01/01/24 21:16 15 UNITS Laboratory Results Laboratory Tests 11/18/24 05:29 Urinalysis Test 01/01/24 08:00 Urine Color Yellow (Yellow) Urine Clarity Clear (Clear) Urine pH 5.5 (5.0-9.0) Urine Specific [place] 1.026 (1.001-1.035) Urine Protein 1+ (Negative) H Urine Ketones Trace (Negative) Urine Blood Negative /uL (Negative) Urine Nitrite Negative (Negative) Urine Bilirubin Negative (Negative) Urine Urobilinogen Normal mg/dL (Negative) Urine Leukocyte Esterase Negative /uL (Negative) Urine RBC 1 /hpf (0 - 4) Urine WBC 5 /hpf (0 - 5) Urine Squamous Epithelial Cells Few /hpf (<5) Urine Bacteria None seen /hpf (None Seen) Urine Hyaline Casts Few /lpf (0 - 2) Urine Granular Casts Few /lpf (0) Urine Mucus Few (None Seen) Urine Yeast (Budding) Many /hpf (None Seen) Urine Glucose 1+ mg/dL (Normal) H Microbiology Microbiology Date/Time Source Procedure Growth Status 12/31/23 10:40 Blood Blood Culture - Preliminary NO GROWTH AFTER 24 HOURS OF INCUBATION. Resulted Assessment/Plan Assessment/Plan Acute respiratory distress Asthma exacerbation Acute bronchitis Type 2 diabetes Obesity Hypertension History of depression and anxiety Dyslipidemia Plan 01/01/2024: Oxygen p.r.n. Continue steroids IV Med neb treatments as needed Add Zithromax IV Resume Lantus 15 units twice a day Full code Advance directives discussed for 18 minutes Resume the home medications Accu-Cheks 01/02/2024: Continue the current management Increase Lantus to 25 units twice a day for better blood sugar control Lower the Solu-Medrol dose to 40 mg twice a day oxygen and med neb treatments as needed Keep in the hospital 1 more day Discussed with the son at the bedside Plan discussed with: Patient, Son My Orders Orders - MICHELLE BEARD MD Procedure Category Date Status Time Azithromycin 500mg/ PHA 01/02/24 In Process 250ml (Zithromax 50 10:00 Insulin Lantus PHA 01/01/24 In Process (Glargine) (Lantus) 22:00 Date of Service: Jan 02, 2024 Billing Provider: MICHELLE BEARD MD Common Visit Codes: [id number] INP/OBS CARE(HIGH) MICHELLE BEARD MD Jan 02, 2024 10:09
[2024-01-02] MEDS ORDERED: INSULIN LANTUS (GLARGINE) 1 /0.01ml (100units/ml) SC ONE (10:15)
[2024-01-02] MEDS: INSULIN LANTUS (GLARGINE) 1 /0.01ml (100units/ml) SC ONE (11:48)
[2024-01-02] MEDS: methylPREDNISolone SOD SUCC 40 MG/ML VL IV SCH (21:18)
[2024-01-02] MEDS: INSULIN LANTUS (GLARGINE) 1 /0.01ml (100units/ml) SC SCH (22:25)
[2024-01-03] VITALS (12 sets, daily range): BP systolic 93–151; BP diastolic 34–51; PULSE 58–79; RESP 12–20; TEMP 97–98.1; O2SAT 95–100
[2024-01-03] MEDS ORDERED: METH4PAK PO (11:46)
[2024-01-03] MEDS ORDERED: AZIT-185 PO (11:46)
--- NOTE | 2024-01-03 18:06 | DVHDS2 ---
Discharge Summary Date of Admission Dec 31, 2023 at 12:21 Date of Discharge: Jan 03, 2024 Labs/Diagnostic Data: Laboratory Results Test 01/03/24 11:42 01/01/24 08:00 01/01/24 05:29 12/31/23 15:00 POC Glucose 176 mg/dl (70-106) Urine Color Yellow (Yellow) Urine Clarity Clear (Clear) Urine pH 5.5 (5.0-9.0) Urine Specific [place] 1.026 (1.001-1.035) Urine Protein 1+ (Negative) Urine Ketones Trace (Negative) Urine Blood Negative /uL (Negative) Urine Nitrite Negative (Negative) Urine Bilirubin Negative (Negative) Urine Urobilinogen Normal mg/dL (Negative) Urine Leukocyte Esterase Negative /uL (Negative) Urine RBC 1 /hpf (0 - 4) Urine WBC 5 /hpf (0 - 5) Urine Squamous Epithelial Cells Few /hpf (<5) Urine Bacteria None seen /hpf (None Seen) Urine Hyaline Casts Few /lpf (0 - 2) Urine Granular Casts Few /lpf (0) Urine Mucus Few (None Seen) Urine Yeast (Budding) Many /hpf (None Seen) Urine Glucose 1+ mg/dL (Normal) White Blood Count 10.3 10^3/uL (4.4-10.8) Red Blood Count 3.92 10^6/uL (4.0-5.20) Hemoglobin 11.6 g/dL (12.2-16.2) Hematocrit 34.2 % (36.0-46.0) Mean Corpuscular Volume 87.4 fL (80.0-100.0) Mean Corpuscular Hemoglobin 29.5 pg (28.0-32.0) Mean Corpuscular Hemoglobin Concent 33.8 g/dL (32.0-36.0) Red Cell Distribution Width 15.4 % (11.8-14.3) Platelet Count 399 10^3/uL (140-450) Mean Platelet Volume 7.6 fL (6.9-10.8) Neutrophils (%) (Auto) 82.1 % (37.0-80.0) Lymphocytes (%) (Auto) 12.7 % (10.0-50.0) Monocytes (%) (Auto) 5.1 % (0.0-12.0) Eosinophils (%) (Auto) 0.0 % (0.0-7.0) Basophils (%) (Auto) 0.1 % (0.0-2.0) Neutrophils # (Auto) 8.5 10 ^3/uL (1.6-8.6) Lymphocytes # (Auto) 1.3 10 ^3/uL (0.4-5.4) Monocytes # (Auto) 0.5 10 ^3/uL (0-1.3) Eosinophils # (Auto) 0 10 ^3/uL (0-0.8) Basophils # (Auto) 0 10 ^3/uL (0-0.2) Nucleated Red Blood Cells 0.1 % Sodium Level 142 mmol/L (136-145) Potassium Level 4.1 mmol/L (3.5-5.1) Chloride Level 110 mmol/L (98-107) Carbon Dioxide Level 20 mmol/L (20-31) Anion Gap 12 (5-15) Blood Urea Nitrogen 24 mg/dL (9-23) Creatinine 0.99 mg/dL (0.550-1.02) Glomerular Filtration Rate Calc 59 mL/min (>90) BUN/Creatinine Ratio 24.2 (10.0-20.0) Serum Glucose 208 mg/dL (74-106) Calcium Level 9.4 mg/dL (8.7-10.4) Total Bilirubin 0.2 mg/dL (0.2-1.0) Aspartate Amino Transferase (AST) 17 U/L (13-40) Alanine Aminotransferase (ALT) 26 U/L (7-40) Alkaline Phosphatase 100 U/L (46-116) Total Protein 7.0 g/dL (5.7-8.2) Albumin 3.9 g/dL (3.2-4.8) Influenza Type A Antigen Negative (Negative) Influenza Type B Antigen Negative (Negative) SARS-CoV-2 Antigen (Rapid) Negative (NEGATIVE) Test 12/31/23 10:40 12/31/23 09:40 Lactic Acid Level 1.8 mmol/L (0.4-2.0) Troponin I High Sensitivity < 3 ng/L (</=34) Hemoglobin A1c 7.8 % A1C (<5.7) Other Laboratory Tests 01/01/24 05:29 Brief Hx & Hospital Course: Final diagnoses: Acute respiratory distress Asthma exacerbation Acute bronchitis Type 2 diabetes Obesity Hypertension History of depression and anxiety Dyslipidemia 78-year-old female who was admitted for shortness of breaths and upper respiratory infection with asthma exacerbation and wheezing She was given oxygen med neb treatments and IV steroids and she improved slowly Today she was feeling much better She was on room air Patient was discharged home on Medrol Dosepak and Zithromax and to continue same home medications and follow up with her primary care physician as soon as possible Condition at Discharge: Stable Final Diagnosis/Problems List Acute respiratory distress Asthma exacerbation Acute bronchitis Type 2 diabetes Obesity Hypertension History of depression and anxiety Dyslipidemia Discharge Disposition: Home SNF Discharge Will this Physician continue t: No Discharge Instruct/Medications Diet: Cardiac 2g Na,low cholest Activity: No Restrictions, As Tolerated Follow Up/Referral: PCP GREY Discharge Statement: "Patient was advised to return to the ER or call 911 if any headaches, dizziness, shortness of breath, chest pain, abdominal pain, bleeding, fevers, or worsening of medical condition. Patient was counseled about treatment plan, medications, possible side effects, patientverbalized understanding. All questions were answered to the best of my ability. This discharge took greater then 30 minutes in planning, reviewing documentation, counseling the patient, and discussing with other team members." ASSESSMENT ASSESSMENT Assessment Acute respiratory distress Asthma exacerbation Acute bronchitis Type 2 diabetes Obesity Hypertension History of depression and anxiety Dyslipidemia Date of Service: Jan 03, 2024 Billing Provider: MICHELLE BEARD MD Common Visit Codes: [id number] DISCH DAY >30min MICHELLE BEARD MD Jan 03, 2024 18:06
== END 2024-01-03 13:30 | disposition home or self-care (01) | DRG 203 ==
LOC: ER 09:37 → TELE 12:21 → TELE-WESTW 18:05
PROVIDERS: ADMIT Registered Nurse; ATTEND Internal Medicine Geriatric Medicine
DX: J45.901 Unspecified asthma with (acute) exacerbation (principal); J20.9 Acute bronchitis, unspecified; R06.03 Acute respiratory distress; I10 Essential (primary) hypertension; Z20.822 Contact with and (suspected) exposure to COVID-19; F32.A Depression, unspecified; E11.40 Type 2 diabetes mellitus with diabetic neuropathy, unspecified; E66.9 Obesity, unspecified; F41.9 Anxiety disorder, unspecified; E78.5 Hyperlipidemia, unspecified; Z90.710 Acquired absence of both cervix and uterus; Z88.8 Allergy status to other drugs, medicaments and biological substances; Z79.899 Other long term (current) drug therapy; Z79.84 Long term (current) use of oral hypoglycemic drugs
CPT/HCPCS: 36415; 71045; 80053; 81001; 82962; 83036; 83605; 84484; 85025; 87040; 87426; 87804; 93005; 93306; 94640; 99291; G0378; J1815

== ENCOUNTER 2024-04-04 12:14 | Emergency (ER) | payer MEDICARE, MEDICAID ==
[~2024-04-04] VITALS: Ht 154.9 cm; Wt 77.5 kg
[~2024-04-04 12:14] MED LIST changes: +AZIT-185 PO; -CEFD300C2 PO; +GEMF-66 PO; +METH4PAK PO
[2024-04-04 13:32] LABS: Basophils # (auto) 0 10 ^3/uL (0-0.2); Basophils % (auto) 0.2 % (0.0-2.0); Eosinophils # (auto) 0.2 10 ^3/uL (0-0.8); Eosinophils % (auto) 2.3 % (0.0-7.0); Hematocrit 36.4 % (36.0-46.0); Hemoglobin 12.3 g/dL (12.2-16.2); Lymphocytes # (auto) 2.9 10 ^3/uL (0.4-5.4); Lymphocytes % (auto) 37.5 % (10.0-50.0); Mean Corpuscular Hemoglobin 29.4 pg (28.0-32.0); Mean Corpuscular Hgb Conc. 33.9 g/dL (32.0-36.0); Mean Corpuscular Volume 86.8 fL (80.0-100.0); Monocytes # (auto) 0.8 10 ^3/uL (0-1.3); Monocytes % (auto) 10.7 % (0.0-12.0); Neutrophils # (auto) 3.8 10 ^3/uL (1.6-8.6); Neutrophils % (auto) 49.3 % (37.0-80.0); Nucleated Red Blood Cells % 0.1 %; Platelet Count (auto) 389 10^3/uL (140-450); Red Blood Cells 4.19 10^6/uL (4.0-5.20); Red Cell Distribution Width 14.4 % (11.8-14.3); White Blood Cell 7.7 10^3/uL (4.4-10.8)
[2024-04-04 13:47] LABS: Anion Gap 9 (5-15); Carbon Dioxide 24 mmol/L (20-31); Chloride 105 mmol/L (98-107); Potassium 4.4 mmol/L (3.5-5.1); Sodium 138 mmol/L (136-145)
[2024-04-04 13:53] LABS: BUN/Creatinine Ratio 21.4 (10.0-20.0); Blood Urea Nitrogen 18 mg/dL (9-23)
[2024-04-04 14:05] LABS: Glucose 107 mg/dL (74-106)
[2024-04-04 16:32] VITALS: BP 105/54; PULSE 53; RESP 16; TEMP 97.9; O2SAT 97
--- NOTE | 2024-04-04 16:32 | ED.PDOC ---
HPI Comments 78 y/o F, presents to the ED for CC of high blood pressure. Patient states, that she had a routine appointment with her PCP this morning for unrelated symptoms when she was relayed to follow up with the ED for a further evaluation due to a hypertensive reading. Patient comments on, symptoms of cough x3days. Patient denies chest pain, headache, dizziness, fatigue, or N/V/D. No other associated symptom's, modifiers, recent injuries or sick contacts at this time. Chief Complaint: High Blood Pressure Time Seen by MD: 16:50 Primary Care Provider: FLORENCIO Reviewed Notes: Nurses Notes, Medications, Allergies Allergies: Coded Allergies: NO KNOWN ALLERGIES (Verified , 02/19/14) Home Meds Active Scripts Azithromycin (ZITHROMAX TABLET) 250 Mg Tb, 250 MG PO DAILY for 3 Days, #3 TAB Prov:MICHELLE BEARD MD 01/03/24 Methylprednisolone (Medrol Dosepak) 4 Mg [place], 4 MG PO UD, #21 TAB UAD Prov:MICHELLE BEARD MD 01/03/24 Reported Medications Gemfibrozil (Gemfibrozil) 600 Mg Tab, 1 TAB PO BID, #60 TAB 5 Refills 12/31/23 Metformin Hydrochloride (Metformin Hcl) 500 Mg Tab, 1000 MG PO BID for 30 Days, MG 09/13/23 Glipizide (Glipizide) 10 Mg Tab, 10 MG PO BID for 30 Days, MG 09/13/23 Temazepam (Temazepam) 30 Mg Cap, 15 MG PO QPM, CAP 09/13/23 Quetiapine Fumerate (QUETIAPINE FUMARATE) 200 Mg Tab, 200 MG PO QPM for 30 Days, MG 09/13/23 Paroxetine (PAXIL TABLET) 20 Mg Tb, 30 MG PO QAM, TAB 09/13/23 Hydrochlorothiazide (Hydrochlorothiazide) 25 Mg Tab, 25 MG PO DAILY for 30 Days, MG 09/13/23 Gabapentin (Gabapentin) 300 Mg Cap, 300 MG PO TID for 30 Days, MG 09/13/23 Information Source: Patient Mode of Arrival: Ambulatory Severity: Mild Timing: Days Duration: Since onset Prehospital treatment: None Cardiac Risk Factors: None PE Risk Factors: None History of: None Modifying Factors: Nothing Associated Signs and Symptoms: None Past Medical History PAST MEDICAL HISTORY: Anxiety, Asthma, Depression, DM, High Lipids, HTN, UTI'S Surgical History: Cholecystectomy, Hysterectomy RESERVATIONS AGENT History: No Pertinent RESERVATIONS AGENT History Family History Family History: No family hx of DM, No family hx of HTN Social History Smoker: Non-Smoker Alcohol: Denies ETOH Use Drugs: Denies Drug Use Lives In: Home Constitutional: denies: chills, diaphoresis, fatigue, fever, malaise, sweats, weakness, others EENTM: denies: blurred vision, double vision, ear bleeding, ear discharge, ear drainage, ear pain, ear ringing, eye pain, eye redness, hearing loss, mouth pain, mouth swelling, nasal discharge, nose bleeding, nose congestion, nose pain, photophobia, tearing, throat pain, throat swelling, voice changes, others Respiratory: denies: cough, hemoptysis, orthopnea, SOB at rest, shortness of breath, SOB with excertion, stridor, wheezing, others Cardiovascular: denies: chest pain, dizzy spells, diaphoresis, Dyspnea on exertion, edema, irregular heart beat, left arm pain, lightheadedness, palpitations, PND, syncope, others Gastrointestinal: denies: abdomen distended, abdominal pain, blood streaked bowels, constipated, diarrhea, dysphagia, difficulty swallowing, hematemesis, melena, nausea, poor appetite, poor fluid intake, rectal bleeding, rectal pain, vomiting, others Genitourinary: denies: abnormal vagina bleeding, burning, dyspareunia, dysuria, flank pain, frequency, hematuria, incontinence, pain, , vagina discharge, urgency, others Neurological: denies: dizziness, fainting, headache, left sided numbness, left sided weakness, numbness, paresthesia, pre-existing deficit, right sided numbness, right sided weakness, seizure, speech problems, tingling, tremors, weakness, others Musculoskeletal: denies: back pain, gout, joint pain, joint swelling, muscle pain, muscle stiffness, neck pain, others Integumetry: denies: bruises, change in color, change in hair/nails, dryness, laceration, lesions, lumps, rash, wounds, others Allergic/Immunocompromised: denies: Difficulty Healing, Frequent Infections, Hives, Itching, others Hematologic/Lymphatic: denies: anemia, blood clots, easy bleeding, easy bruising, swollen glands, others Endocrine: denies: excessive hunger, excessive sweating, excessive thirst, excessive urination, flushing, intolerance to cold, intolerance to heat, unexplained weight gain, unexplained weight loss, others Psychiatric: denies: anxiety, bipolar disorder, depression, hopeless, panic disorder, schizophrenia, sleepless, suicidal, others All Other Systems: Reviewed and Negative Physical Exam General Appearance: Moderate Distress HEENT: Normal ENT Inspection, Pharynx Normal, TMs Normal Neck: Full Range of Motion, Non-Tender, Normal, Normal Inspection Respiratory: Chest Non-Tender, Lungs Clear, No Accessory Muscle Use, No Respiratory Distress, Normal Breath Sounds Cardiovascular: No Edema, No JVD, No Murmur, No Gallop, Normal Peripheral Pulses, Regular Rate/Rhythm Breast Exam: Deferred Gastrointestinal: No Organomegaly, Non Tender, No Pulsatile Mass, Normal Bowel Sounds, Soft Genitalia: Deferred Pelvic: Deferred Rectal: Deferred Extremities: No calf tenderness, Normal capillary refill, Normal inspection, Normal range of motion, Non-tender, No pedal edema Musculoskeletal : Apperance: Normal Neurologic: Alert, No Motor Deficits, No Sensory Deficits Cerebellar Function: NOT DONE Reflexes: NOT DONE Skin: Normal Color Peripheral Pulses: 3+ Radial (R), 3+ Radial (L) Lymphatic: No Adenopathy Was a procedure done? Was a procedure done?: No CP Differential Dx Differential Diagnosis: A-fib, A-Flutter, Angina, Anxiety / Panic Attack, Atrial Dysrhythmia, Electrolyte Disorder Differential Diagnosis: HTN Essential, HTN Accelerated X-Ray, Labs, Meds, VS Vital Signs Date Time Temp Pulse Resp B/P (MAP) Pulse Ox O2 Delivery O2 Flow Rate FiO2 04/04/24 16:32 97.9 97 16 105/54 (71) 97 97.9 04/04/24 16:32 53 16 97 Room Air* 0 21 04/04/24 12:49 97.8 73 18 159/51 (87) 98 Lab Test 04/04/24 13:00 Range/Units White Blood Count 7.7 4.4-10.8 10^3/uL Red Blood Count 4.19 4.0-5.20 10^6/uL Hemoglobin 12.3 12.2-16.2 g/dL Hematocrit 36.4 36.0-46.0 % Mean Corpuscular Volume 86.8 80.0-100.0 fL Mean Corpuscular Hemoglobin 29.4 28.0-32.0 pg Mean Corpuscular Hemoglobin Concent 33.9 32.0-36.0 g/dL Red Cell Distribution Width 14.4 H 11.8-14.3 % Platelet Count 389 140-450 10^3/uL Mean Platelet Volume 7.7 6.9-10.8 fL Neutrophils (%) (Auto) 49.3 37.0-80.0 % Lymphocytes (%) (Auto) 37.5 10.0-50.0 % Monocytes (%) (Auto) 10.7 0.0-12.0 % Eosinophils (%) (Auto) 2.3 0.0-7.0 % Basophils (%) (Auto) 0.2 0.0-2.0 % Neutrophils # (Auto) 3.8 1.6-8.6 10 ^3/uL Lymphocytes # (Auto) 2.9 0.4-5.4 10 ^3/uL Monocytes # (Auto) 0.8 0-1.3 10 ^3/uL Eosinophils # (Auto) 0.2 0-0.8 10 ^3/uL Basophils # (Auto) 0 0-0.2 10 ^3/uL Nucleated Red Blood Cells 0.1 % Sodium Level 138 136-145 mmol/L Potassium Level 4.4 3.5-5.1 mmol/L Chloride Level 105 98-107 mmol/L Carbon Dioxide Level 24 20-31 mmol/L Anion Gap 9 5-15 Blood Urea Nitrogen 18 9-23 mg/dL Creatinine 0.84 0.550-1.02 mg/dL Glomerular Filtration Rate Calc 72 >90 mL/min BUN/Creatinine Ratio 21.4 H 10.0-20.0 Serum Glucose 107 H 74-106 mg/dL Calcium Level 10.0 8.7-10.4 mg/dL Patient alert. Came in because of high blood pressure. Having cough. Vitals stable. Possibly heart failure. Possibly heart related. Possibly will need echocardiogram. WBC within normal limits. Blood pressure is fluctuating. Explained to the family that she will need further workup of the heart. Continue to monitor. Time of 1ST Reevaluation: 15:20 Reevaluation 1ST: Unchanged Patient Education/Counseling: Diagnosis, Treatment Family Education/Counseling: No Family Present Departure 1 Departure Time of Disposition: 17:07 Impression: Primary Impression: Diastolic heart failure Qualified Codes: I50.33 - Acute on chronic diastolic (congestive) heart failure Disposition: ADMITTED INPATIENT Admit to: Med Surg Condition: Guarded Critical Care Note Critical Care Time?: No Stability Stability form required: No Heart Score Heart Score: Heart Score Response (Comments) Value History N/A 0 EKG N/A 0 Age N/A 0 Risk Factors N/A 0 Troponin N/A 0 Total 0 I personally scribed for ELIZABETH MONTOYA MD ([email or web address]) on 04/04/24 at 16:31. Electronically submitted by Kaylynn Mcgraw ([email or web address]). I personally scribed for ELIZABETH MONTOYA MD ([email or web address]) on 04/04/24 at 17:03. Electronically submitted by Kaylynn Mcgraw ([email or web address]). ELIZABETH MONTOYA MD Apr 04, 2024 16:31
== END 2024-04-04 16:50 | disposition left against medical advice (07) ==
LOC: ER 12:15
DX: I11.0 Hypertensive heart disease with heart failure (principal); I50.30 Unspecified diastolic (congestive) heart failure; F41.9 Anxiety disorder, unspecified; J45.909 Unspecified asthma, uncomplicated; F32.A Depression, unspecified; E11.9 Type 2 diabetes mellitus without complications; R05.9 Cough, unspecified; Z90.710 Acquired absence of both cervix and uterus; Z90.49 Acquired absence of other specified parts of digestive tract
CPT/HCPCS: 36415; 80048; 85025

== ENCOUNTER 2024-06-14 10:03 | Inpatient (IN) | payer MEDICARE, MEDICAID ==
[~2024-06-14] VITALS: Ht 157.5 cm; Wt 76.7 kg
--- NOTE | 2024-06-14 10:46 | ED.PDOC ---
History of Present Illness HPI Comments 78F presents to the ER who is thai speaking, w/ prior MHx of Anxiety, Asthma, Thyroid, Depression, DM, UTI, Neuropathy, High Lipids, and HTN; SHx of Cholecystectomy, Cataract, and Hysterectomy and the c/c of HTN. Pt reports on having Bilateral LE pain, SKINNER, and lower ABD pain which radiate to the bilateral flanks and a pain rate of a 10/10 for the past 8 days. Pt states that today, she had a BP systolic of 200 this morning when she woke up. the pt notes that did take her BP medications this morning after looking at her BP. Chief Complaint: Abdominal Pain Time Seen by MD: 10:15 Primary Care Provider: FLORENCIO Reviewed Notes: Nurses Notes, Medications, Allergies Allergies: Coded Allergies: NO KNOWN ALLERGIES (Verified , 02/19/14) Home Meds Active Scripts Azithromycin (ZITHROMAX TABLET) 250 Mg Tb, 250 MG PO DAILY for 3 Days, #3 TAB Prov:MICHELLE BEARD MD 01/03/24 Methylprednisolone (Medrol Dosepak) 4 Mg [place], 4 MG PO UD, #21 TAB UAD Prov:MICHELLE BEARD MD 01/03/24 Reported Medications Gemfibrozil (Gemfibrozil) 600 Mg Tab, 1 TAB PO BID, #60 TAB 5 Refills 12/31/23 Metformin Hydrochloride (Metformin Hcl) 500 Mg Tab, 1000 MG PO BID for 30 Days, MG 09/13/23 Glipizide (Glipizide) 10 Mg Tab, 10 MG PO BID for 30 Days, MG 09/13/23 Temazepam (Temazepam) 30 Mg Cap, 15 MG PO QPM, CAP 09/13/23 Quetiapine Fumerate (QUETIAPINE FUMARATE) 200 Mg Tab, 200 MG PO QPM for 30 Days, MG 09/13/23 Paroxetine (PAXIL TABLET) 20 Mg Tb, 30 MG PO QAM, TAB 09/13/23 Hydrochlorothiazide (Hydrochlorothiazide) 25 Mg Tab, 25 MG PO DAILY for 30 Days, MG 09/13/23 Gabapentin (Gabapentin) 300 Mg Cap, 300 MG PO TID for 30 Days, MG 09/13/23 Information Source: Patient Mode of Arrival: Ambulatory Severity: Moderate Timing: Days Duration: Since onset, Days Prehospital treatment: None Past Medical History PAST MEDICAL HISTORY: Anxiety, Asthma, Depression, DM, High Lipids, HTN, Thy roid, UTI'S Past Medical History (Other): Neuropathy Surgical History: Cholecystectomy, Hysterectomy Surgical History (Other): cataracts SCHEDULE PLANNING MANAGER History: No Pertinent SCHEDULE PLANNING MANAGER History Family History Family History: Reviewed,noncontributory to illness, Unknown Social History Smoker: Non-Smoker Alcohol: Denies ETOH Use Drugs: Denies Drug Use Lives In: Home Constitutional: denies: chills, diaphoresis, fatigue, fever, malaise, sweats, weakness, others EENTM: denies: blurred vision, double vision, ear bleeding, ear discharge, ear drainage, ear pain, ear ringing, eye pain, eye redness, hearing loss, mouth pain, mouth swelling, nasal discharge, nose bleeding, nose congestion, nose pain, photophobia, tearing, throat pain, throat swelling, voice changes, others Respiratory: denies: cough, hemoptysis, orthopnea, SOB at rest, shortness of breath, SOB with excertion, stridor, wheezing, others Cardiovascular: denies: chest pain, dizzy spells, diaphoresis, Dyspnea on exertion, edema, irregular heart beat, left arm pain, lightheadedness, palpitations, PND, syncope, others Gastrointestinal: reports: abdominal pain; denies: abdomen distended, blood streaked bowels, constipated, diarrhea, dysphagia, difficulty swallowing, hematemesis, melena, nausea, poor appetite, poor fluid intake, rectal bleeding, rectal pain, vomiting, others Genitourinary: reports: flank pain; denies: abnormal vagina bleeding, burning, dyspareunia, dysuria, frequency, hematuria, incontinence, pain, , vagina discharge, urgency, others Neurological: reports: headache; denies: dizziness, fainting, left sided numbness, left sided weakness, numbness, paresthesia, pre-existing deficit, right sided numbness, right sided weakness, seizure, speech problems, tingling, tremors, weakness, others Musculoskeletal: denies: back pain, gout, joint pain, joint swelling, muscle pain, muscle stiffness, neck pain, others Integumetry: denies: bruises, change in color, change in hair/nails, dryness, laceration, lesions, lumps, rash, wounds, others Allergic/Immunocompromised: denies: Difficulty Healing, Frequent Infections, Hives, Itching, others Hematologic/Lymphatic: denies: anemia, blood clots, easy bleeding, easy bruising, swollen glands, others Endocrine: denies: excessive hunger, excessive sweating, excessive thirst, excessive urination, flushing, intolerance to cold, intolerance to heat, unexplained weight gain, unexplained weight loss, others Psychiatric: denies: anxiety, bipolar disorder, depression, hopeless, panic disorder, schizophrenia, sleepless, suicidal, others All Other Systems: Reviewed and Negative Physical Exam General Appearance: Moderate Distress HEENT: Normal ENT Inspection, Pharynx Normal, TMs Normal Neck: Full Range of Motion, Non-Tender, Normal, Normal Inspection Respiratory: Chest Non-Tender, Lungs Clear, No Accessory Muscle Use, No Respiratory Distress, Normal Breath Sounds Cardiovascular: No Edema, No JVD, No Murmur, No Gallop, Normal Peripheral Pulses, Regular Rate/Rhythm Breast Exam: Deferred Gastrointestinal: Diffuse, No Organomegaly, No Pulsatile Mass, Normal Bowel Sounds, Soft, Tenderness Genitalia: Deferred Pelvic: Deferred Rectal: Deferred Extremities: No calf tenderness, Normal capillary refill, Normal inspection, Normal range of motion, Non-tender, No pedal edema Musculoskeletal : Apperance: Normal Neurologic: Alert, assembler installer structures II-XII nml as Tested, Motor Weakness, Normal Affect, Normal Mood, No Sensory Deficits Cerebellar Function: Normal Reflexes: Normal Skin: Dry, Normal Color, Warm Lymphatic: No Adenopathy Was a procedure done? Was a procedure done?: No Differential Dx Considerations may include: Generalized weakness, electrolyte imbalance, dehydration, bowel obstruction, UTI X-Ray, Labs, Meds, VS Vital Signs Date Time Temp Pulse Resp B/P (MAP) Pulse Ox O2 Delivery O2 Flow Rate FiO2 06/14/24 13:08 73 18 166/67 06/14/24 12:37 73 18 98 Room Air 06/14/24 12:37 97.7 73 18 166/67 (100) 98 97.7 06/14/24 10:06 98.4 78 16 176/72 (106) 97 98.4 Lab Test 06/14/24 10:31 Range/Units White Blood Count 6.8 4.4-10.8 10^3/uL Red Blood Count 4.55 4.0-5.20 10^6/uL Hemoglobin 13.2 12.2-16.2 g/dL Hematocrit 39.1 36.0-46.0 % Mean Corpuscular Volume 86.0 80.0-100.0 fL Mean Corpuscular Hemoglobin 29.1 28.0-32.0 pg Mean Corpuscular Hemoglobin Concent 33.8 32.0-36.0 g/dL Red Cell Distribution Width 14.7 H 11.8-14.3 % Platelet Count 365 140-450 10^3/uL Mean Platelet Volume 7.8 6.9-10.8 fL Neutrophils (%) (Auto) 49.5 37.0-80.0 % Lymphocytes (%) (Auto) 39.7 10.0-50.0 % Monocytes (%) (Auto) 8.6 0.0-12.0 % Eosinophils (%) (Auto) 2.0 0.0-7.0 % Basophils (%) (Auto) 0.2 0.0-2.0 % Neutrophils # (Auto) 3.4 1.6-8.6 10 ^3/uL Lymphocytes # (Auto) 2.7 0.4-5.4 10 ^3/uL Monocytes # (Auto) 0.6 0-1.3 10 ^3/uL Eosinophils # (Auto) 0.1 0-0.8 10 ^3/uL Basophils # (Auto) 0 0-0.2 10 ^3/uL Nucleated Red Blood Cells 0.1 % Sodium Level 143 136-145 mmol/L Potassium Level 4.6 3.5-5.1 mmol/L Chloride Level 106 98-107 mmol/L Carbon Dioxide Level 27 20-31 mmol/L Anion Gap 10 5-15 Blood Urea Nitrogen 22 9-23 mg/dL Creatinine 1.00 0.550-1.02 mg/dL Glomerular Filtration Rate Calc 58 >90 mL/min BUN/Creatinine Ratio 22.0 H 10.0-20.0 Serum Glucose 121 H 74-106 mg/dL Calcium Level 9.9 8.7-10.4 mg/dL Total Bilirubin 0.2 0.2-1.0 mg/dL Aspartate Amino Transferase (AST) 32 13-40 U/L Alanine Aminotransferase (ALT) 39 7-40 U/L Alkaline Phosphatase 129 H 46-116 U/L Total Protein 7.7 5.7-8.2 g/dL Albumin 4.6 3.2-4.8 g/dL Lipase 41 12-53 U/L Current Medications Medications (Trade) Dose Ordered Sig/Noreen Route Start Time Stop Time Status Last Admin Ondansetron HCl (Zofran) 4 mg ONCE ONCE IV 06/14/24 10:30 06/14/24 10:31 DC 06/14/24 13:07 Morphine Sulfate 4 mg ONCE ONCE IV 06/14/24 10:30 06/14/24 10:31 DC 06/14/24 13:08 Sodium Chloride 500 ml @ 500 mls/hr Q1H ONCE IVB 06/14/24 10:30 06/14/24 11:29 DC 06/14/24 12:53 IMPRESSION: 1. There is no acute process in the abdomen and pelvis. 2. Nonspecific fluid-filled small bowel loops in the lower abdomen. Clinical correlation for enteritis is recommended. 3. Distal colon diverticulosis without evidence of acute diverticulitis. HS:Y The patient was given morphine 4 mg IV push for the pain The patient was given Zofran 4 mg IV push for the nausea The patient was bolused with normal saline at 500 cc. The patient was stating the pain is somewhat persistent The patient's CBC is within normal limits The chemistry panel is within normal limits. The patient was being admitted at this time Images Reviewed?: Images reviewed and evaluated by me Time of 1ST Reevaluation: 10:45 Reevaluation 1ST: Unchanged Patient Education/Counseling: Diagnosis, Treatment, Prognosis Family Education/Counseling: No Family Present Departure 1 Departure Time of Disposition: 15:16 Impression: Primary Impression: Intractable abdominal pain Additional Impression: Enteritis Disposition: ADMITTED INPATIENT Admit to: Med Surg Condition: Fair Critical Care Note Critical Care Time?: No Stability Stability form required: Yes Unstable for transfer: ED Physician Assesment (Clinical assesment) Heart Score Heart Score: Heart Score Response (Comments) Value History N/A 0 EKG N/A 0 Age N/A 0 Risk Factors N/A 0 Troponin N/A 0 Total 0 I personally scribed for MYRIAM JOHNSON MD ([email or web address]) on 06/14/24 at 10:46. Electronically submitted by Marek Galvan ([email or web address]). I personally scribed for MYRIAM JOHNSON MD ([email or web address]) on 06/14/24 at 11:15. Electronically submitted by Marek Galvan ([email or web address]). MYRIAM JOHNSON MD June 14, 2024 10:46
[2024-06-14 10:48] LABS: Basophils # (auto) 0 10 ^3/uL (0-0.2); Basophils % (auto) 0.2 % (0.0-2.0); Eosinophils # (auto) 0.1 10 ^3/uL (0-0.8); Hematocrit 39.1 % (36.0-46.0); Hemoglobin 13.2 g/dL (12.2-16.2); Lymphocytes # (auto) 2.7 10 ^3/uL (0.4-5.4); Lymphocytes % (auto) 39.7 % (10.0-50.0); Mean Corpuscular Hemoglobin 29.1 pg (28.0-32.0); Mean Corpuscular Hgb Conc. 33.8 g/dL (32.0-36.0); Monocytes # (auto) 0.6 10 ^3/uL (0-1.3); Monocytes % (auto) 8.6 % (0.0-12.0); Neutrophils # (auto) 3.4 10 ^3/uL (1.6-8.6); Neutrophils % (auto) 49.5 % (37.0-80.0); Nucleated Red Blood Cells % 0.1 %; Platelet Count (auto) 365 10^3/uL (140-450); Red Blood Cells 4.55 10^6/uL (4.0-5.20); Red Cell Distribution Width 14.7 % (11.8-14.3); White Blood Cell 6.8 10^3/uL (4.4-10.8)
--- NOTE | 2024-06-14 10:51 | DVH ---
CT ABDOMEN AND PELVIS WITHOUT CONTRAST CLINICAL HISTORY: pain TECHNIQUE: Multiple contiguous axial images of the abdomen and pelvis without intravenous contrast. T he images were reformatted degenerate coronal and sagittal reconstructions. All CT scans at this medical facility are performed using dose modulation techniques as appropriate t o a performed exam including the following:Automated exposure control was utilized; adjustment of the MA and/or KV according to patient size; and use of iterative reconstruction technique. Radiation Dose Information: CT Dose: CTDI volume is 12.84 mGy. Dose-length product is 697.1 mGy*cm Comparison: CT CT AB PEL WO CON-NO ORAL OR IV on DOS: 11/28/23, CT CT AB PEL WO CON-NO ORAL OR IV on DOS: 09/13/23 FINDINGS: Evaluation of the abdomen and pelvis is limited without intravenous contrast. There is stable parenchymal calcification in the left kidney. There is no evidence of nephrolithiasis or hydronephrosis. The gallbladder is surgically absent. The liver, pancreas, adrenal glands, and spleen appear with in normal limits. There is no gross evidence of abdominal lymphadenopathy. There is no free fluid or free air. The stomach grossly appears unremarkable. The small and large bowel loops demonstrate normal caliber and distribution. There are nonspecific fluid-filled small bowel loops in the lower abdomen. There a re diverticula in the distal colon without evidence of acute diverticulitis. The appendix is not see n in the right lower quadrant abdomen. There are no secondary signs of acute appendicitis. The abdominal aorta and IVC appear within normal limits. The bladder appears unremarkable for the degree of distention. Uterus is surgically absent.. There i s no gross evidence of a pelvic mass. There is no free fluid collection. There is atelectasis in the in the lung bases. There is stable calcified granuloma in the right lung base. There is no acute osseous abnormality. IMPRESSION: 1. There is no acute process in the abdomen and pelvis. 2. Nonspecific fluid-filled small bowel loops in the lower abdomen. Clinical correlation for enteriti s is recommended. 3. Distal colon diverticulosis without evidence of acute diverticulitis. HS:Y
[2024-06-14 11:04] LABS: Alanine Aminotransferase 39 U/L (7-40); Albumin 4.6 g/dL (3.2-4.8); Anion Gap 10 (5-15); Aspartate Aminotransferase 32 U/L (13-40); Blood Urea Nitrogen 22 mg/dL (9-23); Calcium 9.9 mg/dL (8.7-10.4); Carbon Dioxide 27 mmol/L (20-31); Chloride 106 mmol/L (98-107); Potassium 4.6 mmol/L (3.5-5.1); Sodium 143 mmol/L (136-145); Total Protein 7.7 g/dL (5.7-8.2)
[2024-06-14 11:06] LABS: Alkaline Phosphatase 129 U/L (46-116); Bilirubin, Total 0.2 mg/dL (0.2-1.0); Glucose 121 mg/dL (74-106)
[2024-06-14 11:17] LABS: Lipase 41 U/L (12-53)
[2024-06-14] MEDS: SODIUM CHLORIDE 0.9% 500 ML IVB ONE (12:53)
[2024-06-14] MEDS: ONDANSETRON HCL 4 MG/2 ML VIAL IV ONE (13:07)
[2024-06-14] MEDS: MORPHINE SULFATE 4 MG/ML SYR/VIAL IV ONE (13:08)
[2024-06-14 15:46] LABS: Urine Bacteria None Seen /hpf (None Seen)
[2024-06-14 16:04] LABS: Urine Blood Negative /uL (Negative); Urine Clarity Clear (Clear); Urine Color Light-Yellow (Yellow); Urine Protein, UAD TRACE (Negative); Urine Specific Gravity 1.019 (1.001-1.035); Urine Squamous Epithelial Cell FEW /hpf (<5); Urine Urobilinogen Normal (Negative); Urine WBC 1 /HPF (0-5)
[2024-06-14] MEDS ORDERED: ONDANSETRON HCL 4 MG/2 ML VIAL IV PRN (23:30)
--- NOTE | 2024-06-14 23:32 | DVHHPRES ---
History of Present Illness Resident Creating Document: CARLOS MATHIS RESIDENT History of Present Illness Patient is a 78-year-old female with past medical history of asthma, type 2 diabetes, obesity, hypertension, dyslipidemia, depression, anxiety, osteoporosis, insomnia, who comes in due to abdominal pain. According to the patient she has been experiencing a left-sided abdominal pain with radiation to the mid abdomen for the last 8 days without any triggers. Associated symptoms include diarrhea and generalized muscle weakness along with numbness in legs. Denies any sick contacts. Patient also notes some clear colored vomiting and yellowish diarrhea. On review of systems patient is not a to have nausea, vomiting, diarrhea, generalized weakness. CT abdomen pelvis showed fluid-filled small bowel loops may suggest enteritis. Patient was admitted for further management. Past Medical History asthma, type 2 diabetes, obesity, hypertension, dyslipidemia, depression, anxiety, osteoporosis, insomnia Past Surgical History Hysterectomy, bladder surgery Smoke: No ALCOHOL: none Drugs: None Review of Systems Constitutional: Yes: Malaise; No: Fever, Chills, Sweats, Weakness, Other Eyes: No: Pain, Vision change, Conjunctivae inflammation, Eyelid inflammation, Other, Redness ENT: No: Ear pain, Ear discharge, Nose pain, Nose discharge, Nose congestion, Mouth pain, Mouth swelling, Throat pain, Throat swelling, Other Respiratory: No: Cough, Dry, Shortness of breath, SOB with excertion, Wheezing, Hemoptysis, Pleuritic Pain, Sputum, Wheezing, Other Cardiovascular: No: Chest Pain, Palpitations, Orthopnea, Paroxysmal Noc. Dyspnea, Edema, Lt Headedness, Other Gastrointestinal: Nausea, Vomiting, Abdominal Pain, Diarrhea; No: Constipation, Melena, Hematochezia, Other Genitourinary: No Dysuria, No Frequency, No Incontinence, No Hematuria, No Retention, No Other Musculoskeletal: No: other, neck pain, shoulder pain, arm pain, back pain, hand pain, leg pain, foot pain Skin: No: Rash, Lesions, Jaundice, Bruising, Other Neurological: No: Weakness, Numbness, Incoordination, Change in speech, Confusion, Seizures, Other Allergies: Coded Allergies: NO KNOWN ALLERGIES (Verified , 02/19/14) Medications Current Medications Medications Dose Ordered Sig/Noreen Route Start Time Stop Time Status Last Admin Dose Admin Acetaminophen 325 mg Q4HP PRN PO 06/14/24 23:30 UNV Ondansetron HCl 4 mg Q4HP PRN IV 06/14/24 23:30 UNV Enoxaparin Sodium 40 mg DAILY SC 06/15/24 10:00 UNV Ceftriaxone Sodium 50 ml @ 100 mls/hr DAILY@09 IV 06/15/24 09:00 UNV Exam Vital Signs Vital Signs Date Time Temp Pulse Resp B/P (MAP) Pulse Ox O2 Delivery O2 Flow Rate FiO2 06/14/24 19:50 98.3 83 17 182/69 (106) 96 98.3 06/14/24 12:37 Room Air General Appearance: Alert, Oriented X3, Cooperative, No acute distress HEENT: Atraumatic, PERRLA, EOMI, Other (Dry mucous membranes) Respiratory: Clear to auscultation, Normal air movement Cardiovascular: Regular rate, Normal S1, Normal S2 Abdominal: Normal bowel sounds, Soft, Other (Generalized abdominal tenderness to palpation) Extremities: No edema, Normal pulses Skin: No significant lesion Neuro: Normal gait, Normal speech, Strength at 5/5 X4 ext, Normal tone, Sensation intact Psych/Mental Status: Mental status NL, Mood NL Labs/Xrays Labs Test 06/14/24 15:26 06/14/24 10:31 Range/Units Urine Color Light-yellow Yellow Urine Clarity Clear Clear Urine pH 5.0 5.0-9.0 Urine Specific Gray 1.019 1.001-1.035 Urine Protein Trace H Negative Urine Ketones Negative Negative Urine Blood Negative Negative /uL Urine Nitrite Negative Negative Urine Bilirubin Negative Negative Urine Urobilinogen Normal Negative mg/dL Urine Leukocyte Esterase Negative Negative /uL Urine RBC <1 0 - 4 /hpf Urine Microscopic WBC 1 0-5 /HPF Urine Squamous Epithelial Cells Few <5 /hpf Urine Bacteria None seen None Seen /hpf Urine Glucose Normal Normal mg/dL White Blood Count 6.8 4.4-10.8 10^3/uL Red Blood Count 4.55 4.0-5.20 10^6/uL Hemoglobin 13.2 12.2-16.2 g/dL Hematocrit 39.1 36.0-46.0 % Mean Corpuscular Volume 86.0 80.0-100.0 fL Mean Corpuscular Hemoglobin 29.1 28.0-32.0 pg Mean Corpuscular Hemoglobin Concent 33.8 32.0-36.0 g/dL Red Cell Distribution Width 14.7 H 11.8-14.3 % Platelet Count 365 140-450 10^3/uL Mean Platelet Volume 7.8 6.9-10.8 fL Neutrophils (%) (Auto) 49.5 37.0-80.0 % Lymphocytes (%) (Auto) 39.7 10.0-50.0 % Monocytes (%) (Auto) 8.6 0.0-12.0 % Eosinophils (%) (Auto) 2.0 0.0-7.0 % Basophils (%) (Auto) 0.2 0.0-2.0 % Neutrophils # (Auto) 3.4 1.6-8.6 10 ^3/uL Lymphocytes # (Auto) 2.7 0.4-5.4 10 ^3/uL Monocytes # (Auto) 0.6 0-1.3 10 ^3/uL Eosinophils # (Auto) 0.1 0-0.8 10 ^3/uL Basophils # (Auto) 0 0-0.2 10 ^3/uL Nucleated Red Blood Cells 0.1 % Sodium Level 143 136-145 mmol/L Potassium Level 4.6 3.5-5.1 mmol/L Chloride Level 106 98-107 mmol/L Carbon Dioxide Level 27 20-31 mmol/L Anion Gap 10 5-15 Blood Urea Nitrogen 22 9-23 mg/dL Creatinine 1.00 0.550-1.02 mg/dL Glomerular Filtration Rate Calc 58 >90 mL/min BUN/Creatinine Ratio 22.0 H 10.0-20.0 Serum Glucose 121 H 74-106 mg/dL Calcium Level 9.9 8.7-10.4 mg/dL Total Bilirubin 0.2 0.2-1.0 mg/dL Aspartate Amino Transferase (AST) 32 13-40 U/L Alanine Aminotransferase (ALT) 39 7-40 U/L Alkaline Phosphatase 129 H 46-116 U/L Total Protein 7.7 5.7-8.2 g/dL Albumin 4.6 3.2-4.8 g/dL Lipase 41 12-53 U/L Assessment/Plan Assessment/Plan Acute gastroenteritis: Infectious versus inflammatory Intractable nausea and vomiting Dehydration due to above Left-sided nephrolithiasis noted on CT abdomen pelvis Diverticulosis without diverticulitis - CT abdomen pelvis: There is no acute process in the abdomen and pelvis. Nonspecific fluid-filled small bowel loops in the lower abdomen. Clinical correlation for enteritis is recommended. Distal colon diverticulosis without ev idence of acute diverticulitis. - IV NS 500 cc bolus, IV NS at 1:20 a.m. cc/hour maintenance - IV ceftriaxone, IV metronidazole - stool WBC, stool culture, stool C diff - IV Zofran as needed - NPO History of asthma, currently stable - ipratropium and albuterol med nebs as needed Type 2 diabetes, A1c 7.3% Peripheral neuropathy due to above - ordered Hb A1c - mild sliding scale insulin - resumed home medication gabapentin 300 mg t.i.d. Hypertension Hyperlipidemia - resumed home medication hydrochlorothiazide 25 mg Anxiety Depression, likely MDD Insomnia - resumed home medication paroxetine 30 mg, quetiapine 200 mg, temazepam 15 mg PUD prophylaxis: Holding until C diff ruled out DVT prophylaxis: Levonox 40mg Goals of care: Full code, discussed for >16 minutes on 06/15/2019 Plan discussed with patient Plan discussed with Dr. Muñiz Plan discussed with: Patient, Other My Orders Orders - CARLOS MATHIS RESIDENT Procedure Category Date Status Time Admit ADMIT 06/14/24 Transmitted 23:21 Allergies MARIELLE 06/14/24 In Process 23:21 Code Status CODE 06/14/24 Transmitted 23:21 Acetaminophen Tablet PHA 06/14/24 Logged (Tylenol Tablet) 23:30 Ondansetron Hcl PHA 06/14/24 Transmitted (Zofran) 23:30 Enoxaparin Sodium PHA 06/15/24 Transmitted (Lovenox) 10:00 Complete Blood Count LAB 06/15/24 Verified 04:00 Comprehensive LAB 06/15/24 Verified Metabolic Panel 04:00 Npo (Nothing By DIET 06/15/24 Transmitted Mouth) Diet Breakfast Condition: Unstable MARIELLE 06/14/24 In Process 23:21 Notify Of Changes MARIELLE 06/14/24 In Process From Base 23:21 NS PHA 06/14/24 Transmitted 23:30 Ceftriaxone Ivpb PHA 06/15/24 Transmitted Rocephin 09:00 Ceftriaxone Ivpb PHA 06/14/24 Transmitted Rocephin 23:30 Metronidazole Ivpb PHA 06/15/24 Transmitted Flagyl 06:00 Metronidazole Ivpb PHA 06/14/24 Transmitted Flagyl 23:30 Stool Occult Blood LAB 06/14/24 Transmitted 23:21 Stool Bacterial LEELA 06/14/24 Transmitted Culture 23:21 Stool Wbc LAB 06/14/24 Transmitted 23:21 Clostridium Difficile LEELA 06/14/24 Transmitted Toxin 23:21 Date of Service: June 14, 2024 Billing Provider: HAL MUÑIZ MD Common Visit Codes: [id number] INP/OBS CARE (HIGH) Secondary Visit Codes: [id number] CARE PLAN 30 MINUTES CARLOS MATHIS RESIDENT June 14, 2024 23:32 HAL MUÑIZ MD June 17, 2024 19:41
[2024-06-14 23:38] VITALS: BP 182/69; PULSE 83; RESP 17; TEMP 98.3; O2SAT 96
[2024-06-14] MEDS ORDERED: ALBUTEROL SULF 2.5 MG/0.5ML(0.5%) NEB SOLN NEB PRN (23:45)
[2024-06-14] MEDS ORDERED: IPRATROPIUM BROM 0.5 MG/2.5ML INH SOL NEB PRN (23:45)
[2024-06-15] MEDS ORDERED: DEXTROSE (50%) 50ML SYRG IV PRN (00:15)
[2024-06-15] MEDS: cefTRIAXone 1GM/50ML D5W 50 ML IV ONE (02:29)
[2024-06-15] MEDS: ACETAMINOPHEN 325 MG TAB PO PRN (02:30)
[2024-06-15] MEDS: SODIUM CHLORIDE 0.9% 1,000 ML IV ONE (02:31)
[2024-06-15] MEDS: hydroCHLOROthiazide 25 MG TAB PO SCH (02:31)
[2024-06-15] MEDS: metroNIDAZOLE 500MG/100ML 100 ML IV ONE (03:18)
[2024-06-15] MEDS: InsuLIN REG 1unit/0.01ml Soln (100units/ml) SC SCH (03:30)
[2024-06-15] MEDS: ACCU-CHEK COMFORT CURVE STRIP VI SCH (03:30)
[2024-06-15 05:45] VITALS: O2SAT 96
[2024-06-15] MEDS: metroNIDAZOLE 500MG/100ML 100 ML IV SCH (06:27)
[2024-06-15] MEDS: GABAPENTIN 300 MG CAP PO SCH (06:27)
[2024-06-15 06:34] LABS: Basophils # (auto) 0 10 ^3/uL (0-0.2); Basophils % (auto) 0.4 % (0.0-2.0); Eosinophils # (auto) 0.2 10 ^3/uL (0-0.8); Eosinophils % (auto) 2.1 % (0.0-7.0); Hematocrit 36.7 % (36.0-46.0); Lymphocytes # (auto) 2.5 10 ^3/uL (0.4-5.4); Lymphocytes % (auto) 28.9 % (10.0-50.0); Mean Corpuscular Hemoglobin 28.4 pg (28.0-32.0); Mean Corpuscular Hgb Conc. 32.7 g/dL (32.0-36.0); Mean Corpuscular Volume 86.8 fL (80.0-100.0); Monocytes # (auto) 0.6 10 ^3/uL (0-1.3); Neutrophils # (auto) 5.3 10 ^3/uL (1.6-8.6); Neutrophils % (auto) 61.6 % (37.0-80.0); Nucleated Red Blood Cells % 0.1 %; Platelet Count (auto) 352 10^3/uL (140-450); Red Blood Cells 4.23 10^6/uL (4.0-5.20); Red Cell Distribution Width 14.7 % (11.8-14.3); White Blood Cell 8.7 10^3/uL (4.4-10.8)
[2024-06-15 06:36] LABS: Alanine Aminotransferase 38 U/L (7-40); Albumin 4.3 g/dL (3.2-4.8); Alkaline Phosphatase 115 U/L (46-116); Anion Gap 9 (5-15); Aspartate Aminotransferase 28 U/L (13-40); BUN/Creatinine Ratio 28.7 (10.0-20.0); Calcium 9.1 mg/dL (8.7-10.4); Carbon Dioxide 25 mmol/L (20-31); Potassium 4.7 mmol/L (3.5-5.1); Sodium 142 mmol/L (136-145)
[2024-06-15 06:37] LABS: Bilirubin, Total 0.2 mg/dL (0.2-1.0); Blood Urea Nitrogen 25 mg/dL (9-23); Chloride 108 mmol/L (98-107); Glucose 114 mg/dL (74-106)
[2024-06-15] MEDS: PARoxetine 20 MG TAB PO SCH (07:47)
[2024-06-15] MEDS: cefTRIAXone 1GM/50ML D5W 50 ML IV SCH (10:11)
[2024-06-15] MEDS: ENOXAPARIN SOD 40 MG/0.4 ML SYRINGE SC SCH (10:11)
[2024-06-15 11:35] VITALS: RESP 18; O2SAT 96
[2024-06-15 11:45] VITALS: BP 167/58; PULSE 73; RESP 18; TEMP 98.6; O2SAT 96
[2024-06-15 15:34] VITALS: BP 154/47; TEMP 37
[2024-06-15] MEDS ORDERED: QUEtiapine FUMARATE 100 MG TAB PO SCH (18:00)
[2024-06-15] MEDS ORDERED: TEMAZEPAM 15 MG CAP PO SCH (18:00)
== END 2024-06-15 16:00 | disposition home or self-care (01) | DRG 392 ==
LOC: ER 10:03 → OVERFLOW 23:21 → EAST 06-15 11:33
PROVIDERS: ATTEND Emergency Medicine
DX: A09 Infectious gastroenteritis and colitis, unspecified (principal); K57.30 Diverticulosis of large intestine without perforation or abscess without bleeding; I10 Essential (primary) hypertension; F41.9 Anxiety disorder, unspecified; E78.5 Hyperlipidemia, unspecified; M81.0 Age-related osteoporosis without current pathological fracture; E86.0 Dehydration; J45.909 Unspecified asthma, uncomplicated; E11.42 Type 2 diabetes mellitus with diabetic polyneuropathy; G47.00 Insomnia, unspecified; F32.9 Major depressive disorder, single episode, unspecified; Z90.710 Acquired absence of both cervix and uterus; Z90.49 Acquired absence of other specified parts of digestive tract; Z79.2 Long term (current) use of antibiotics; Z79.84 Long term (current) use of oral hypoglycemic drugs; Z79.899 Other long term (current) drug therapy
CPT/HCPCS: 36415; 74176; 80053; 81001; 82962; 83036; 83690; 84443; 85025; 96361; 96374; 96375; G0378; J2405; J3490

== ENCOUNTER 2024-07-13 11:13 | Emergency (ER) | payer MEDICARE, MEDICAID ==
[~2024-07-13] VITALS: Ht 160 cm; Wt 79.0 kg
[2024-07-13 12:45] LABS: Urine Bacteria FEW /hpf (None Seen); Urine Blood Negative /uL (Negative); Urine Clarity Clear (Clear); Urine Color Light-Yellow (Yellow); Urine Protein, UAD 1+ (Negative); Urine Specific Gravity 1.019 (1.001-1.035); Urine Squamous Epithelial Cell FEW /hpf (<5); Urine Urobilinogen Normal (Negative); Urine WBC 1 /HPF (0-5); Urine pH 5.5 (5.0-9.0)
--- NOTE | 2024-07-13 13:08 | DVH ---
INDICATION: back pain TECHNIQUE: 4 views of the lumbar spine were obtained. COMPARISON: None FINDINGS: There are no acute fractures or subluxations. Moderate chronic multilevel degenerative disc disease Severe disc space narrowing L5-S1 level. IMPRESSION: 1. No acute fracture or subluxation.
--- NOTE | 2024-07-13 13:35 | ED.PDOC ---
Musculoskeletal HPI Comments 78y F who presents to the ED for chief complaint of lower extremity pain. Pt states she has been having 10 days of R leg pain , swelling, and tenderness. Pt denies any recent travel. Pt otherwise denies any other symptoms at this time. Chief Complaint: Lower Extremity Time Seen by MD: 13:29 Primary Care Provider: FLORENCIO Mello Notes: Medications, Allergies Allergies: Coded Allergies: NO KNOWN ALLERGIES (Verified , 02/19/14) Home Meds Active Scripts Azithromycin (ZITHROMAX TABLET) 250 Mg Tb, 250 MG PO DAILY for 3 Days, #3 TAB Prov:MICHELLE BEARD MD 01/03/24 Methylprednisolone (Medrol Dosepak) 4 Mg [place], 4 MG PO UD, #21 TAB UAD Prov:MICHELLE BEARD MD 01/03/24 Reported Medications Gemfibrozil (Gemfibrozil) 600 Mg Tab, 1 TAB PO BID, #60 TAB 5 Refills 12/31/23 Metformin Hydrochloride (Metformin Hcl) 500 Mg Tab, 1000 MG PO BID for 30 Days, MG 09/13/23 Glipizide (Glipizide) 10 Mg Tab, 10 MG PO BID for 30 Days, MG 09/13/23 Temazepam (Temazepam) 30 Mg Cap, 15 MG PO QPM, CAP 09/13/23 Quetiapine Fumerate (QUETIAPINE FUMARATE) 200 Mg Tab, 200 MG PO QPM for 30 Days, MG 09/13/23 Paroxetine (PAXIL TABLET) 20 Mg Tb, 30 MG PO QAM, TAB 09/13/23 Hydrochlorothiazide (Hydrochlorothiazide) 25 Mg Tab, 25 MG PO DAILY for 30 Days, MG 09/13/23 Gabapentin (Gabapentin) 300 Mg Cap, 300 MG PO TID for 30 Days, MG 09/13/23 Information Source: Patient Mode of Arrival: Ambulatory Brought in by: self Past Medical History PAST MEDICAL HISTORY: Anxiety, Asthma, Depression, DM, High Lipids, HTN, Thyroid, UTI'S Surgical History: Cholecystectomy, Hysterectomy PUBLIC RELATIONS INTERN History: No Pertinent PUBLIC RELATIONS INTERN History Family History Family History: Reviewed,noncontributory to illness, Unknown Social History Smoker: Non-Smoker Alcohol: Denies ETOH Use Drugs: Denies Drug Use Lives In: Home Musculoskeletal: reports: joint pain (RLE), joint swelling (RLE) Physical Exam General Appearance: No Apparent Distress, Normal HEENT: Normal ENT Inspection, Pharynx Normal, TMs Normal Neck: Full Range of Motion, Non-Tender, Normal, Normal Inspection Respiratory: Chest Non-Tender, Lungs Clear, No Accessory Muscle Use, No Respiratory Distress, Normal Breath Sounds Cardiovascular: No Edema, No JVD, No Murmur, No Gallop, Normal Peripheral Pulses, Regular Rate/Rhythm Breast Exam: Deferred Gastrointestinal: No Organomegaly, Non Tender, No Pulsatile Mass, Normal Bowel Sounds, Soft Genitalia: Deferred Pelvic: Deferred Rectal: Deferred Extremities: Calf tenderness (R calf tender), Other (+ ROM RLE tendernes to palpation) Musculoskeletal : Apperance: Normal Neurologic: Alert, naphthalene operator II-XII nml as Tested, No Motor Deficits, Normal Affect, Normal Mood, No Sensory Deficits Cerebellar Function: Normal Reflexes: Normal Skin: Dry, Normal Color, Warm Lymphatic: No Adenopathy Was a procedure done? Was a procedure done?: No Differential Diagnosis EXT Differential Diagnosis: Cellulitis, Deep Vein Thrombosis, Compartment Syndrome, DJD, Rheumatoid X-Ray, Labs, Meds, VS Vital Signs Date Time Temp Pulse Resp B/P (MAP) Pulse Ox O2 Delivery O2 Flow Rate FiO2 07/13/24 13:05 98.9 82 20 113/68 (83) 96 98.9 Lab Test 07/13/24 12:21 07/13/24 12:16 Range/Units Urine Color Light-yellow Yellow Urine Clarity Clear Clear Urine pH 5.5 5.0-9.0 Urine Specific [place] 1.019 1.001-1.035 Urine Protein 1+ H Negative Urine Ketones Negative Negative Urine Blood Negative Negative /uL Urine Nitrite Negative Negative Urine Bilirubin Negative Negative Urine Urobilinogen Normal Negative mg/dL Urine Leukocyte Esterase Negative Negative /uL Urine RBC None seen 0 - 4 /hpf Urine Microscopic WBC 1 0-5 /HPF Urine Squamous Epithelial Cells Few <5 /hpf Urine Bacteria Few H None Seen /hpf Urine Glucose 3+ H Normal mg/dL POC Glucose 277 H 70-106 mg/dl [address] [address] Ph: [phone] DIAGNOSTIC IMAGING Diagnostic Imaging Report : [id number] Signed PATIENT: BC VASQUEZ ACCT: [id number] UNIT: [id number] : 1945 LOC: ER ROOM / BED: / AGE / SEX: 78 / F ADM STATUS: REG ER SERVICE 36 ORDERING PHYSICIAN: NIKOLAI JOHNSON MD PROCEDURE(s): LS - LUMBAR SPINE 4+ VIEW REASON: back pain ORDER NUMBER(s): [id number], ACCESSION NUMBER(s): [id number] INDICATION: back pain TECHNIQUE: 4 views of the lumbar spine were obtained. COMPARISON: None FINDINGS: There are no acute fractures or subluxations. Moderate chronic multilevel degenerative disc disease Severe disc space narrowing L5-S1 level. IMPRESSION: 1. No acute fracture or subluxation. ATED BY: SEAN MAY MD DICTATED DATE/TIME: 07/13/24 130 SIGNED BY: SEAN MAY MD SIGNED DATE/TIME: 07/13/24 130 CC: [place] [address] Ph: [phone] DIAGNOSTIC IMAGING Diagnostic Imaging Report : [id number] Signed PATIENT: BC VASQUEZ ACCT: [id number] UNIT: [id number] : 1945 LOC: ER ROOM / BED: / AGE / SEX: 78 / F ADM STATUS: REG ER SERVICE 36 ORDERING PHYSICIAN: NIKOLAI JOHNSON MD PROCEDURE(s): RLDVT - RT Lower DVT REASON: right calf pain ORDER NUMBER(s): [id number], ACCESSION NUMBER(s): [id number] Right lower extremity venous duplex Clinical History: right calf pain Comparison: None Technique: Duplex Doppler evaluation of the deep venous system of the right lower extremity from the common femoral vein to the popliteal vein including color Doppler and spectral/pulsed waveform analysis was performed. Findings: The common femoral vein demonstrates appropriate compressibility and waveform variability. There is compressibility/patency of the great saphenous vein at the proximal thigh. The femoral vein demonstrates appropriate compressibility and waveform variability. The deep femoral vein demonstrates appropriate compressibility and waveform variability. The popliteal vein demonstrates appropriate compressibility and waveform variability. There is normal compressibility at the tibioperoneal trunk. Impression: No right femoropopliteal venous thrombosis. ATED BY: TOM MEDLEY MD DICTATED DATE/TIME: 07/13/241333 SIGNED BY: TOM MEDLEY MD SIGNED DATE/TIME: 07/13/241333 CC: Time of 1ST Reevaluation: 14:00 Reevaluation 1ST: Unchanged Patient Education/Counseling: Diagnosis, Treatment, Prognosis, Need For Follow Up Family Education/Counseling: No Family Present Additional Information Previous visits reviewed: The following tests were ordered, and results were reviewed by me: UA , lumbar spine x-ray, R lower DVT Additional Information was gathered from interviewing the following independent historians: none I reviewed and agreed with the following test results read by other providers: radiologist I discussed treatment and results with medical personnel and: patient Comprehensive systems review obtained and negative except for what is stated in the HPI. Departure 1 Departure Time of Disposition: 15:04 Impression: Primary Impression: Arthralgia Disposition: 01 HOME / SELF CARE / HOMELESS Condition: Good e-Prescriptions Ibuprofen Micronized (MOTRIN TABLET) 600 Mg Tb 600 MG PO TID PRN, #40 TAB *Black box warning-NSAIDS can increase risk of [place] & hypertension, GI irritation, ulceration, bleed, perferation. Do not use post cardiac surgery. Use short duration/lowest effective dose. Prov: NIKOLAI JOHNSON MD 07/13/24 Discharged With: Self Critical Care Note Critical Care Time?: No Stability Stability form required: No Heart Score Heart Score: Heart Score Response (Comments) Value History N/A 0 EKG N/A 0 Age N/A 0 Risk Factors N/A 0 Troponin N/A 0 Total 0 I personally scribed for NIKOLAI JOHNSON MD ([email or web address]) on 07/13/24 at 13:35. Electronically submitted by Shea Rouse ([email or web address]). I personally scribed for NIKOLAI JOHNSON MD ([email or web address]) on 07/13/24 at 13:56. Electronically submitted by Shea Rouse ([email or web address]). NIKOLAI JOHNSON MD July 13, 2024 13:35
[2024-07-13] MEDS ORDERED: IBU600T PO (15:05)
[2024-07-13] MEDS: cloNIDine HCL 0.1 MG TAB PO ONE (15:36)
[2024-07-13] MEDS: HYDROcodone-ACET 5/325MG TAB PO ONE (15:37)
[2024-07-13 16:34] VITALS: BP 187/75; PULSE 72; RESP 14; TEMP 98.5; O2SAT 94
== END 2024-07-13 16:43 | disposition home or self-care (01) ==
LOC: ER 11:14
DX: M79.661 Pain in right lower leg (principal); M25.59 Pain in other specified joint; M79.89 Other specified soft tissue disorders; I10 Essential (primary) hypertension; E11.9 Type 2 diabetes mellitus without complications; F41.9 Anxiety disorder, unspecified; F32.A Depression, unspecified; J45.909 Unspecified asthma, uncomplicated; Z79.84 Long term (current) use of oral hypoglycemic drugs; Z79.899 Other long term (current) drug therapy; Z87.440 Personal history of urinary (tract) infections; Z90.49 Acquired absence of other specified parts of digestive tract; Z90.710 Acquired absence of both cervix and uterus
CPT/HCPCS: 72110; 81001; 82947; 82962; 93971

== ENCOUNTER 2024-07-29 07:35 | Inpatient (IN) | payer MEDICARE, MEDICAID ==
[~2024-07-29] VITALS: Ht 160 cm; Wt 79.8 kg
[~2024-07-29 07:35] MED LIST changes: +ALEN70TA74 PO; +IBU600T PO; +OMEP20TA PO
[2024-07-29 08:31] LABS: Urine Bacteria FEW /hpf (None Seen); Urine Blood Negative /uL (Negative); Urine Clarity Turbid (Clear); Urine Color Yellow (Yellow); Urine Hyaline Cast MANY /lpf (0 - 2); Urine Mucus FEW (None Seen); Urine Protein, UAD 1+ (Negative); Urine Specific Gravity 1.026 (1.001-1.035); Urine Squamous Epithelial Cell MOD /hpf (<5); Urine Urobilinogen Normal (Negative); Urine WBC 23 /HPF (0-5)
[2024-07-29 08:40] LABS: Basophils # (auto) 0 10 ^3/uL (0-0.2); Basophils % (auto) 0.2 % (0.0-2.0); Eosinophils # (auto) 0.1 10 ^3/uL (0-0.8); Eosinophils % (auto) 1.1 % (0.0-7.0); Lymphocytes # (auto) 1.7 10 ^3/uL (0.4-5.4); Lymphocytes % (auto) 21.7 % (10.0-50.0); Mean Corpuscular Hemoglobin 28.8 pg (28.0-32.0); Mean Corpuscular Hgb Conc. 33.2 g/dL (32.0-36.0); Mean Corpuscular Volume 86.6 fL (80.0-100.0); Monocytes # (auto) 0.8 10 ^3/uL (0-1.3); Monocytes % (auto) 10.3 % (0.0-12.0); Neutrophils # (auto) 5.1 10 ^3/uL (1.6-8.6); Neutrophils % (auto) 66.7 % (37.0-80.0); Platelet Count (auto) 303 10^3/uL (140-450); Red Blood Cells 4.16 10^6/uL (4.0-5.20); Red Cell Distribution Width 14.9 % (11.8-14.3); White Blood Cell 7.6 10^3/uL (4.4-10.8)
[2024-07-29 08:50] LABS: Chloride 106 mmol/L (98-107); Potassium 3.6 mmol/L (3.5-5.1); Sodium 141 mmol/L (136-145)
[2024-07-29 08:51] LABS: Anion Gap 13 (5-15); Calcium 9.8 mg/dL (8.7-10.4); Carbon Dioxide 22 mmol/L (20-31)
[2024-07-29 08:56] LABS: BUN/Creatinine Ratio 19.4 (10.0-20.0)
[2024-07-29 08:57] LABS: Glucose 286 mg/dL (74-106)
[2024-07-29 08:58] LABS: Blood Urea Nitrogen 34 mg/dL (9-23)
[2024-07-29] MEDS: SODIUM CHLORIDE 0.9% 1,000 ML IV ONE ×3 (09:45→18:00)
--- NOTE | 2024-07-29 10:22 | DVH ---
CLINICAL INFORMATION: 79 years old, Female; abdominal pain. TECHNIQUE: Axial CT images of the abdomen and pelvis were obtained without IV contrast. Coronal and s agittal reformatted images were obtained, reviewed, and stored. Evaluation of the parenchymal organs is limited without IV contrast. Evaluation of the bowel and mesentery is limited without oral contras t. All CT scans at this medical facility are performed using dose modulation techniques as appropriat e to a performed exam including the following: Automated exposure control was utilized; adjustment of the MA and/or KV according to patient size; and use of iterative reconstruction technique. CTDIvol = 15.84 mGy DLP = 874.02 mGy-cm COMPARISON: CT CT AB PEL WO CON-NO ORAL OR IV on DOS: 06/14/24, CT CT AB PEL WO CON-NO ORAL OR IV on DO S: 11/28/23, CT CT AB PEL WO CON-NO ORAL OR IV on DOS: 09/13/23 FINDINGS: Lung bases: Calcified granuloma in the right lower lobe. Lung bases are otherwise clear. Liver: Hepatic steatosis. Liver is enlarged, measuring up to 17 cm in craniocaudal dimension at the m idclavicular line. Biliary: Postsurgical changes of prior cholecystectomy. Spleen: Unremarkable. Pancreas: Grossly unremarkable in its noncontrast enhanced appearance. Adrenal glands: Unremarkable. No mass. Kidneys: No hydronephrosis. Scarring in the upper pole of the left kidney with associated parenchymal calcification. Otherwise, no renal or ureteral calculi. Aorta/Vascular: Moderate atherosclerotic calcification. Retroperitoneum: No mass or lymphadenopathy. Bowel/mesentery: Nonspecific nondilated fluid-filled small bowel loops. No small bowel obstruction. A ppendix is visualized and appears unremarkable. Scattered colonic diverticula without adjacent infla mmatory changes to suggest diverticulitis. There is liquid stool in portions of the colon. Pelvic organs: Uterus is surgically absent. Bladder: Unremarkable. No mass. Abdominal wall: No mass or hernia. Bones: No acute fracture or suspicious intraosseous lesion. IMPRESSION: 1. Nonspecific nondilated fluid-filled small bowel loops liquid stool in the colon. Findings may be s een with ileus or enterocolitis in the appropriate clinical setting. No small bowel obstruction. 2. Scattered colonic diverticula without adjacent inflammatory changes to suggest diverticulitis. 3. Hepatomegaly and hepatic steatosis. 4. Additional nonacute findings as described above
--- NOTE | 2024-07-29 10:26 | ED.PDOC ---
History of Present Illness HPI Comments 79-year-old female presents with a chief complaint of abdominal pain x 4 days with associated diarrhea and weakness. Patient states that her pain is localized to her diffuse abdomen, nonradiating, and states that she has felt pain like this before, but not as intense at it is now. Patient denies any injuries or trauma prior to onset of symptoms. Patient denies any blood in her diarrhea. Chief Complaint: Abdominal Pain Time Seen by MD: 09:03 Primary Care Provider: FLORENCIO Mello Notes: Medications, Allergies Allergies: Coded Allergies: NO KNOWN ALLERGIES (Verified , 02/19/14) Home Meds Active Scripts Ibuprofen Micronized (MOTRIN TABLET) 600 Mg Tb, 600 MG PO TID PRN, #40 TAB *Black box warning-NSAIDS can increase risk of [place] & hypertension, GI irritation, ulceration, bleed, perferation. Do not use post cardiac surgery. Use short duration/lowest effective dose. Prov:NIKOLAI JOHNSON MD 07/13/24 Azithromycin (ZITHROMAX TABLET) 250 Mg Tb, 250 MG PO DAILY for 3 Days, #3 TAB Prov:MICHELLE BEARD MD 01/03/24 Methylprednisolone (Medrol Dosepak) 4 Mg [place], 4 MG PO UD, #21 TAB UAD Prov:MICHELLE BEARD MD 01/03/24 Reported Medications Gemfibrozil (Gemfibrozil) 600 Mg Tab, 1 TAB PO BID, #60 TAB 5 Refills 12/31/23 Metformin Hydrochloride (Metformin Hcl) 500 Mg Tab, 1000 MG PO BID for 30 Days, MG 09/13/23 Glipizide (Glipizide) 10 Mg Tab, 10 MG PO BID for 30 Days, MG 09/13/23 Temazepam (Temazepam) 30 Mg Cap, 15 MG PO QPM, CAP 09/13/23 Quetiapine Fumerate (QUETIAPINE FUMARATE) 200 Mg Tab, 200 MG PO QPM for 30 Days, MG 09/13/23 Paroxetine (PAXIL TABLET) 20 Mg Tb, 30 MG PO QAM, TAB 09/13/23 Hydrochlorothiazide (Hydrochlorothiazide) 25 Mg Tab, 25 MG PO DAILY for 30 Days, MG 09/13/23 Gabapentin (Gabapentin) 300 Mg Cap, 300 MG PO TID for 30 Days, MG 09/13/23 Information Source: Patient Mode of Arrival: Ambulatory Severity: Moderate Timing: Days Duration: Since onset Prehospital treatment: None Past Medical History PAST MEDICAL HISTORY: Anxiety, Asthma, Depression, DM, High Lipids, HTN, Thyroid, UTI'S Surgical History: Cholecystectomy, Hysterectomy SALES AND PRODUCTION MANAGER History: No Pertinent SALES AND PRODUCTION MANAGER History Family History Family History: Reviewed,noncontributory to illness, Unknown Social History Smoker: Non-Smoker Alcohol: Denies ETOH Use Drugs: Denies Drug Use Lives In: Home Constitutional: denies: chills, diaphoresis, fatigue, fever, malaise, sweats, weakness, others EENTM: denies: blurred vision, double vision, ear bleeding, ear discharge, ear drainage, ear pain, ear ringing, eye pain, eye redness, hearing loss, mouth pain, mouth swelling, nasal discharge, nose bleeding, nose congestion, nose pain, photophobia, tearing, throat pain, throat swelling, voice changes, others Respiratory: denies: cough, hemoptysis, orthopnea, SOB at rest, shortness of breath, SOB with excertion, stridor, wheezing, others Cardiovascular: denies: chest pain, dizzy spells, diaphoresis, Dyspnea on exertion, edema, irregular heart beat, left arm pain, lightheadedness, palpitations, PND, syncope, others Gastrointestinal: reports: abdominal pain, diarrhea; denies: abdomen distended, blood streaked bowels, constipated, dysphagia, difficulty swallowing, hematemesis, melena, nausea, poor appetite, poor fluid intake, rectal bleeding, rectal pain, vomiting, others Genitourinary: denies: abnormal vagina bleeding, burning, dyspareunia, dysuria, flank pain, frequency, hematuria, incontinence, pain, , vagina dis charge, urgency, others Neurological: denies: dizziness, fainting, headache, left sided numbness, left sided weakness, numbness, paresthesia, pre-existing deficit, right sided numbness, right sided weakness, seizure, speech problems, tingling, tremors, weakness, others Musculoskeletal: denies: back pain, gout, joint pain, joint swelling, muscle pain, muscle stiffness, neck pain, others Integumetry: denies: bruises, change in color, change in hair/nails, dryness, laceration, lesions, lumps, rash, wounds, others Allergic/Immunocompromised: denies: Difficulty Healing, Frequent Infections, Hives, Itching, others Hematologic/Lymphatic: denies: anemia, blood clots, easy bleeding, easy bruising, swollen glands, others Endocrine: denies: excessive hunger, excessive sweating, excessive thirst, excessive urination, flushing, intolerance to cold, intolerance to heat, unexplained weight gain, unexplained weight loss, others Psychiatric: denies: anxiety, bipolar disorder, depression, hopeless, panic disorder, schizophrenia, sleepless, suicidal, others All Other Systems: Reviewed and Negative Physical Exam General Appearance: No Apparent Distress, Normal HEENT: Normal ENT Inspection, Pharynx Normal, TMs Normal Neck: Full Range of Motion, Non-Tender, Normal, Normal Inspection Respiratory: Chest Non-Tender, Lungs Clear, No Accessory Muscle Use, No Respiratory Distress, Normal Breath Sounds Cardiovascular: No Edema, No JVD, No Murmur, No Gallop, Normal Peripheral Pulses, Regular Rate/Rhythm Breast Exam: Deferred Gastrointestinal: No Organomegaly, Non Tender, No Pulsatile Mass, Normal Bowel Sounds, Soft Genitalia: Deferred Pelvic: Deferred Rectal: Deferred Extremities: No calf tenderness, Normal capillary refill, Normal inspection, No rmal range of motion, Non-tender, No pedal edema Musculoskeletal : Apperance: Normal Neurologic: Alert, batch and furnace operator II-XII nml as Tested, No Motor Deficits, Normal Affect, Normal Mood, No Sensory Deficits Cerebellar Function: Normal Reflexes: Normal Skin: Dry, Normal Color, Warm Lymphatic: No Adenopathy Was a procedure done? Was a procedure done?: No Differential Dx Considerations may include: Diverticulitis, ACS, acute cystitis, viral syndromes, GERD X-Ray, Labs, Meds, VS Vital Signs Date Time Temp Pulse Resp B/P (MAP) Pulse Ox O2 Delivery O2 Flow Rate FiO2 07/29/24 09:11 98.2 72 16 122/58 (79) 100 98.2 07/29/24 09:11 72 16 100 Room Air 07/29/24 07:39 97.8 90 18 157/67 (97) 97 97.8 Lab Test 07/29/24 10:05 07/29/24 08:25 07/29/24 07:44 Range/Units Lactic Acid Level Pending White Blood Count 7.6 4.4-10.8 10^3/uL Red Blood Count 4.16 4.0-5.20 10^6/uL Hemoglobin 12.0 L 12.2-16.2 g/dL Hematocrit 36.0 36.0-46.0 % Mean Corpuscular Volume 86.6 80.0-100.0 fL Mean Corpuscular Hemoglobin 28.8 28.0-32.0 pg Mean Corpuscular Hemoglobin Concent 33.2 32.0-36.0 g/dL Red Cell Distribution Width 14.9 H 11.8-14.3 % Platelet Count 303 140-450 10^3/uL Mean Platelet Volume 8.0 6.9-10.8 fL Neutrophils (%) (Auto) 66.7 37.0-80.0 % Lymphocytes (%) (Auto) 21.7 10.0-50.0 % Monocytes (%) (Auto) 10.3 0.0-12.0 % Eosinophils (%) (Auto) 1.1 0.0-7.0 % Basophils (%) (Auto) 0.2 0.0-2.0 % Neutrophils # (Auto) 5.1 1.6-8.6 10 ^3/uL Lymphocytes # (Auto) 1.7 0.4-5.4 10 ^3/uL Monocytes # (Auto) 0.8 0-1.3 10 ^3/uL Eosinophils # (Auto) 0.1 0-0.8 10 ^3/uL Basophils # (Auto) 0 0-0.2 10 ^3/uL Nucleated Red Blood Cells 0.0 % Sodium Level 141 136-145 mmol/L Potassium Level 3.6 3.5-5.1 mmol/L Chloride Level 106 98-107 mmol/L Carbon Dioxide Level 22 20-31 mmol/L Anion Gap 13 5-15 Blood Urea Nitrogen 34 H 9-23 mg/dL Creatinine 1.75 H 0.550-1.02 mg/dL Glomerular Filtration Rate Calc 30 >90 mL/min BUN/Creatinine Ratio 19.4 10.0-20.0 Serum Glucose 286 H 74-106 mg/dL Calcium Level 9.8 8.7-10.4 mg/dL Troponin I High Sensitivity 112 *H </=34 ng/L Urine Color Yellow Yellow Urine Clarity Turbid H Clear Urine pH 5.0 5.0-9.0 Urine Specific [place] 1.026 1.001-1.035 Urine Protein 1+ H Negative Urine Ketones Negative Negative Urine Blood Negative Negative /uL Urine Nitrite Negative Negative Urine Bilirubin Negative Negative Urine Urobilinogen Normal Negative mg/dL Urine Leukocyte Esterase 3+ Negative /uL Urine RBC 4 0 - 4 /hpf Urine Microscopic WBC 23 H 0-5 /HPF Urine Squamous Epithelial Cells Mod <5 /hpf Urine Bacteria Few H None Seen /hpf Urine Hyaline Casts Many 0 - 2 /lpf Urine Mucus Few None Seen Urine Glucose Trace Normal mg/dL Time of 1ST Reevaluation: 09:30 Reevaluation 1ST: Unchanged Patient Education/Counseling: Diagnosis, Treatment, Need For Follow Up Family Education/Counseling: No Family Present Sepsis Sepsis Reasesment Focused Exam Orders: Laboratory Tests 07/29/24 10:05: Departure 1 Departure Time of Disposition: 11:03 (Patient presented with abdominal pain that was concerning for possible appendicits, gastritis, cholecystitis, colitis, gastroenteritis, sbo, or orther possible surgical emergency. Data: 1. I ordered and reviewed the result of at least 3 labs including a CBC, BMP, and Urinalysis. 2. I independently interpreted the following tests: CT Abdoment and Pelvis is concerning for colitis .Risk:This patient has a high risk of morbidity due to further diagnostic testing or treatment and may suffer from an acute abdominal process disorder. Workup reveals colitis and elevated troponin and patient sh ould be admitted for further workup. and possible expert consultation. ) Impression: Primary Impression: Acute colitis Additional Impression: Elevated troponin Disposition: ADMITTED INPATIENT Admit to: Med Surg Condition: Serious Critical Care Note Critical Care Time?: Yes Critical care comment: Intractable abdominal pain Authorized and Performed by: Raymon Springer MD Total critical care time: Approximately 37 minutes Due to a high probability of clinically significant, life threatening deterioration, the patient required my highest level of preparedness to intervene emergently and I personally spent this critical care time directly and personally managing the patient. This critical care time included obtaining a history; examining the patient; pulse oximetry; ordering and review of studies; arranging urgent treatment with development of a management plan; evaluation of patient's response to treatment; frequent reassessment; and, discussions with other providers. This critical care time was performed to assess and manage the high probability of imminent, life-threatening deterioration that could result in multi-organ failure. It was exclusive of separately billable procedures and treating other patients and teaching time. Please see my other sections and the rest of the note for further information on patient assessment and treatment. Stability Stability form required: No Heart Score Heart Score: Heart Score Response (Comments) Value History N/A 0 EKG N/A 0 Age N/A 0 Risk Factors N/A 0 Troponin N/A 0 Total 0 I personally scribed for RAYMON SPRINGER MD ([email or web address]) on 07/29/24 at 10:25. Electronically submitted by Chema Lopez [email or web address]). RAYMON SPRINGER MD Jul 29, 2024 10:25
[2024-07-29 11:03] LABS: Lactic Acid w/Reflex 2.5 mmol/L (0.4-2.0)
--- NOTE | 2024-07-29 11:37 | ECG ---
[facility] Test Date: 2024-07-29 Test Time: 11:36:34 Pat Name: BC VASQUEZ Department: ER Room: [facility] Gender: F Health Professional: YOSVANY : 1945 Requested By: RAYMON TRIMBLE Order Number: [id number] Reading MD: Benji Russell Measurements Intervals [place] Rate: 70 P: 57 [place]: 173 QRS: 17 QRSD: 97 T: -36 QT: 430 QTc: 464 Interpretive Statements Sinus rhythm LVH with secondary repolarization abnormality Electronically Signed On 07-30-2024 17:38:28 PDT by Benji Russell Please click the below link to view image of tracing.
[2024-07-29] MEDS: CEFEPIME 2GM/50ML NS 50 ML IV ONE (11:52)
[2024-07-29 13:18] VITALS: PULSE 82; RESP 16; O2SAT 97
[2024-07-29] MEDS ORDERED: DOCUSATE SOD 100 MG CAP PO PRN (14:00)
[2024-07-29] MEDS ORDERED: ONDANSETRON HCL 4 MG/2 ML VIAL IV PRN (14:00)
[2024-07-29] MEDS ORDERED: ACETAMINOPHEN 325 MG TAB PO PRN (14:00)
[2024-07-29] MEDS ORDERED: METF-372 PO (14:06)
[2024-07-29] MEDS ORDERED: LEVO25TA6 PO (14:06)
[2024-07-29] MEDS ORDERED: DEXTROSE (50%) 50ML SYRG IV PRN (14:15)
--- NOTE | 2024-07-29 14:17 | DVHHP2 ---
History of Present Illness Reason for Visit: Abdominal pain History of Present Illness Yola Lamb is a 79-year-old female with past medical history of diabetes, hypertensin, hyperlipidemia, depression, and anxiety who came to the hospital for abdominal pain. Patient states she has been experiencing abdominal pain for about 3-4 days with associated nausea, diarrhea, and headache. States the pain is defuse in her abdomen, but worse on her left side. She was seen in this hospital for a similar complaint last month. States she has not been diagnosed with diverticulitis prior. Cardiovascular: HTN, hyperipidemia Psych: Anxiety, Depression Endocrine: Diabetes Past Surgical History: Appendectomy, Tubal Ligation Smoke: No ALCOHOL: none Drugs: None Lives: with Family Domestic Violence: Neg Review of Systems Constitutional: No: Fever, Chills, Sweats, Weakness, Malaise, Other Eyes: No: Pain, Vision change, Conjunctivae inflammation, Eyelid inflammation, Other, Redness ENT: No: Ear pain, Ear discharge, Nose pain, Nose discharge, Nose congestion, Mouth pain, Mouth swelling, Throat pain, Throat swelling, Other Respiratory: No: Cough, Dry, Shortness of breath, SOB with excertion, Wheezing, Hemoptysis, Pleuritic Pain, Sputum, Wheezing, Other Cardiovascular: No: Chest Pain, Palpitations, Orthopnea, Paroxysmal Noc. Dyspnea, Edema, Lt Headedness, Other Gastrointestinal: Nausea, Abdominal Pain, Diarrhea; No: Vomiting, Constipation, Melena, Hematochezia, Other Genitourinary: No Dysuria, No Frequency, No Incontinence, No Hematuria, No Retention, No Other Musculoskeletal: No: other, neck pain, shoulder pain, arm pain, back pain, hand pain, leg pain, foot pain Skin: No: Rash, Lesions, Jaundice, Bruising, Other Neurological: No: Weakness, Numbness, Incoordination, Change in speech, Confusion, Seizures, Other Allergies: Coded Allergies: NO KNOWN ALLERGIES (Verified , 02/19/14) Medications Current Medications Medications Dose Ordered Sig/Noreen Route Start Time Stop Time Status Last Admin Dose Admin Acetaminophen/ Hydrocodone Bitart 1 tab Q4HP PRN PO 07/29/24 14:00 UNV Ondansetron HCl 4 mg Q4HP PRN IV 07/29/24 14:00 UNV Docusate Sodium 100 mg BIDPRN PRN PO 07/29/24 14:00 UNV Acetaminophen 650 mg Q6HP PRN PO 07/29/24 14:00 UNV Ceftriaxone Sodium 50 ml @ 100 mls/hr DAILY@09 IV 07/30/24 09:00 UNV Metronidazole 100 ml @ 100 mls/hr Q8HR IV 07/29/24 14:00 UNV Hydrochlorothiazide 25 mg DAILY PO 07/30/24 10:00 UNV Paroxetine HCl 30 mg QAM PO 07/30/24 07:00 UNV Patient Own Medication 200 mg QPM PO 07/29/24 18:00 UNV Patient Own Medication 15 mg QPM PO 07/29/24 18:00 UNV Levothyroxine Sodium 25 mcg DAILY PO 07/30/24 10:00 UNV Exam Vital Signs Vital Signs Date Time Temp Pulse Resp B/P (MAP) Pulse Ox O2 Delivery O2 Flow Rate FiO2 07/29/24 13:18 82 16 97 Room Air* 0 21 07/29/24 13:18 98.0 126/55 (78) 98.0 General Appearance: Alert, Oriented X3, Cooperative, mild distress HEENT: Atraumatic, PERRLA Respiratory: Clear to auscultation, Normal air movement Cardiovascular: Regular rate, Normal S1, Normal S2, No murmurs Abdominal: Normal bowel sounds, Soft, Other (C/O pain entire abdomen, worse on left side) Extremities: No clubbing, No cyanosis Skin: No rashes, No breakdown Neuro: Normal gait, Normal speech Psych/Mental Status: Mental status NL, Mood NL Labs/Xrays Labs Test 07/29/24 13:28 07/29/24 12:08 07/29/24 08:25 07/29/24 07:44 Range/Units Troponin I High Sensitivity 70 *H </=34 ng/L Lactic Acid Level 2.9 *H 0.4-2.0 mmol/L White Blood Count 7.6 4.4-10.8 10^3/uL Red Blood Count 4.16 4.0-5.20 10^6/uL Hemoglobin 12.0 L 12.2-16.2 g/dL Hematocrit 36.0 36.0-46.0 % Mean Corpuscular Volume 86.6 80.0-100.0 fL Mean Corpuscular Hemoglobin 28.8 28.0-32.0 pg Mean Corpuscular Hemoglobin Concent 33.2 32.0-36.0 g/dL Red Cell Distribution Width 14.9 H 11.8-14.3 % Platelet Count 303 140-450 10^3/uL Mean Platelet Volume 8.0 6.9-10.8 fL Neutrophils (%) (Auto) 66.7 37.0-80.0 % Lymphocytes (%) (Auto) 21.7 10.0-50.0 % Monocytes (%) (Auto) 10.3 0.0-12.0 % Eosinophils (%) (Auto) 1.1 0.0-7.0 % Basophils (%) (Auto) 0.2 0.0-2.0 % Neutrophils # (Auto) 5.1 1.6-8.6 10 ^3/uL Lymphocytes # (Auto) 1.7 0.4-5.4 10 ^3/uL Monocytes # (Auto) 0.8 0-1.3 10 ^3/uL Eosinophils # (Auto) 0.1 0-0.8 10 ^3/uL Basophils # (Auto) 0 0-0.2 10 ^3/uL Nucleated Red Blood Cells 0.0 % Sodium Level 141 136-145 mmol/L Potassium Level 3.6 3.5-5.1 mmol/L Chloride Level 106 98-107 mmol/L Carbon Dioxide Level 22 20-31 mmol/L Anion Gap 13 5-15 Blood Urea Nitrogen 34 H 9-23 mg/dL Creatinine 1.75 H 0.550-1.02 mg/dL Glomerular Filtration Rate Calc 30 >90 mL/min BUN/Creatinine Ratio 19.4 10.0-20.0 Serum Glucose 286 H 74-106 mg/dL Calcium Level 9.8 8.7-10.4 mg/dL Urine Color Yellow Yellow Urine Clarity Turbid H Clear Urine pH 5.0 5.0-9.0 Urine Specific [place] 1.026 1.001-1.035 Urine Protein 1+ H Negative Urine Ketones Negative Negative Urine Blood Negative Negative /uL Urine Nitrite Negative Negative Urine Bilirubin Negative Negative Urine Urobilinogen Normal Negative mg/dL Urine Leukocyte Esterase 3+ Negative /uL Urine RBC 4 0 - 4 /hpf Urine Microscopic WBC 23 H 0-5 /HPF Urine Squamous Epithelial Cells Mod <5 /hpf Urine Bacteria Few H None Seen /hpf Urine Hyaline Casts Many 0 - 2 /lpf Urine Mucus Few None Seen Urine Glucose Trace Normal mg/dL CT Abdomen/Pelvis: FINDINGS: Lung bases: Calcified granuloma in the right lower lobe. Lung bases are otherwise clear. Liver: Hepatic steatosis. Liver is enlarged, measuring up to 17 cm in craniocaudal dimension at the midclavicular line. Biliary: Postsurgical changes of prior cholecystectomy. Spleen: Unremarkable. Pancreas: Grossly unremarkable in its noncontrast enhanced appearance. Adrenal glands: Unremarkable. No mass. Kidneys: No hydronephrosis. Scarring in the upper pole of the left kidney with associated parenchymal calcification. Otherwise, no renal or ureteral calculi. Aorta/Vascular: Moderate atherosclerotic calcification. Retroperitoneum: No mass or lymphadenopathy. Bowel/mesentery: Nonspecific nondilated fluid-filled small bowel loops. No small bowel obstruction. Appendix is visualized and appears unremarkable. Scattered colonic diverticula without adjacent inflammatory changes to suggest diverticulitis. There is liquid stool in portions of the colon. Pelvic organs: Uterus is surgically absent. Bladder: Unremarkable. No mass. Abdominal wall: No mass or hernia. Bones: No acute fracture or suspicious intraosseous lesion. IMPRESSION: 1. Nonspecific nondilated fluid-filled small bowel loops liquid stool in the colon. Findings may be seen with ileus or enterocolitis in the appropriate clinical setting. No small bowel obstruction. 2. Scattered colonic diverticula without adjacent inflammatory changes to suggest diverticulitis. 3. Hepatomegaly and hepatic steatosis. 4. Additional nonacute findings as described above Assessment/Plan Assessment/Plan Assessment: Acute colitis, Hyperglycemia, Lactic acidosis, Hepatic steatosis, Diabetes, Depression, Hypertension, Plan: Admit to Med-Surg, GI consult, IV hydration, IV antibiotics, Clear liquid diet, Send stool for WBC, culture, C-Diff, A1c, Accu checks Q AC&HS with sliding scale, Home medications reconciled, Plan discussed with: Patient My Orders Orders - MLEINDA CARTY Procedure Category Date Status Time Troponin-I Hs LAB 07/29/24 Logged 14:09 Admit ADMIT 07/29/24 Transmitted 13:56 Code Status CODE 07/29/24 Transmitted 13:56 Hydrocodone-Acet PHA 07/29/24 Logged 5/325mg Tab ([place] 14:00 Ondansetron Hcl PHA 07/29/24 Logged (Zofran) 14:00 Docusate Sodium PHA 07/29/24 Logged Capsule (Colace 14:00 Complete Blood Count LAB 07/30/24 Verified 04:00 Comprehensive LAB 07/30/24 Verified Metabolic Panel 04:00 Condition: Serious MARIELLE 07/29/24 In Process 13:56 Acetaminophen Tablet PHA 07/29/24 Logged (Tylenol Tablet) 14:00 Clear Liq Diet DIET 07/29/24 Transmitted Dinner Ceftriaxone 1gm/50ml PHA 07/30/24 Logged D5w (Rocephin) 09:00 Metronidazole PHA 07/29/24 Logged 500mg/100ml (Flagyl 14:00 Stool Bacterial LEELA 07/29/24 Logged Culture 13:56 Stool Wbc LAB 07/29/24 Logged 13:56 Clostridium Difficile LEELA 07/29/24 Logged Toxin 13:56 Sodium Chloride 0.9% PHA 07/29/24 Logged 14:00 Hydrochlorothiazide PHA 07/30/24 Logged Tablet (Hydrochlorot 10:00 Paroxetine Tablet PHA 07/30/24 Logged (Paxil Tablet) 07:00 (Nf) Quetiapine PHA 07/29/24 Logged Fumerate (Quetiapine 18:00 (Nf) Temazepam PHA 07/29/24 Logged 18:00 * [facility] CONS 07/29/24 Transmitted 14:06 Levothyroxine Tablet PHA 07/30/24 Logged (Synthroid Tablet) 10:00 Date of Service: Jul 29, 2024 Billing Provider: MELINDA CARTY Common Visit Codes: [id number] INP/OBS CARE (MOD) MELINDA CARTY Jul 29, 2024 14:17
[2024-07-29] MEDS ORDERED: TEMAZEPAM 15 MG CAP PO PRN (14:30)
[2024-07-29] MEDS: metroNIDAZOLE 500MG/100ML 100 ML IV SCH (15:27)
[2024-07-29] MEDS: ACCU-CHEK COMFORT CURVE STRIP VI SCH (17:00)
[2024-07-29] MEDS: InsuLIN REG 1unit/0.01ml Soln (100units/ml) SC SCH ×2 (17:00→23:54)
--- NOTE | 2024-07-29 17:41 | DVHCONRES ---
Date Seen: Jul 29, 2024 Resident Creating Document: MARCY GUERRA RESIDENT Referring Physician Yolanda Green History of Present Illness Patient is 79 years old female with past medical history of hypertension, diabetes mellitus type 2, hyperlipidemia, anxiety, depression came with a compla int of abdominal pain started 3-4 days before. As per patient she has been having abdominal pain for 3-4 days, intermittent, sharp in nature, 10/10, worsened with the food. Patient also endorsed nausea and diarrhea almost 4 15 times since yesterday, no blood. Patient denied any dysuria or fever, chest pain no shortness a breath. History of colonoscopy and endoscopy 4 years be ore, as per patient no significant finding. Initial lab workup revealed hemoglobin 12.0, lactic acid 2.5, troponin I 112, urinalysis revealed leukocyte esterase 3+, WBC 23, bacteria few. CT abdomen revealed-Nonspecific nondilated fluid-filled small bowel loops liquid stool in the colon. Findings may be seen with ileus or enterocolitis in the appropriate clinical setting. No small bowel obstruction. Scattered colonic diverticula without adjacent inflammatory changes to suggest diverticulitis. Hepatomegaly and hepatic steatosis. Past Medical History hypertension, diabetes mellitus type 2, hyperlipidemia, anxiety, depression Past Surgical History Appendectomy, tubal ligation Family History: Family history: Asthma 19 CHILD Family history: Diabetes mellitus 19 CHILD 19 CHILD Family history: Hypercholesterolemia (situation) 19 CHILD Family history: Hypertension 19 CHILD 19 CHILD Allergies: Coded Allergies: NO KNOWN ALLERGIES (Verified , 02/19/14) Home Meds Reported Medications Metformin Hydrochloride (Metformin Hcl) 1,000 Mg Tab, 1 TAB PO BID 07/29/24 Levothyroxine Sodium (Levothyroxine Sodium) 25 Mcg Tab, 1 TAB PO DAILY 07/29/24 Gemfibrozil (Gemfibrozil) 600 Mg Tab, 1 TAB PO BID, #60 TAB 5 Refills 12/31/23 Glipizide (Glipizide) 10 Mg Tab, 10 MG PO BID for 30 Days, MG 09/13/23 Temazepam (Temazepam) 30 Mg Cap, 15 MG PO QPM, CAP 09/13/23 Quetiapine Fumerate (QUETIAPINE FUMARATE) 200 Mg Tab, 200 MG PO QPM for 30 Days, MG 09/13/23 Paroxetine (PAXIL TABLET) 20 Mg Tb, 30 MG PO QAM, TAB 09/13/23 Hydrochlorothiazide (Hydrochlorothiazide) 25 Mg Tab, 25 MG PO DAILY for 30 Days, MG 09/13/23 Gabapentin (Gabapentin) 300 Mg Cap, 300 MG PO TID for 30 Days, MG 09/13/23 Discontinued Reported Medications Metformin Hydrochloride (Metformin Hcl) 500 Mg Tab, 1000 MG PO BID for 30 Days, MG 09/13/23 Discontinued Scripts Ibuprofen Micronized (MOTRIN TABLET) 600 Mg Tb, 600 MG PO TID PRN, #40 TAB *Black box warning-NSAIDS can increase risk of CA & hypertension, GI irritation, ulceration, bleed, perferation. Do not use post cardiac surgery. Use short duration/lowest effective dose. Prov:NIKOLAI JOHNSON MD 07/13/24 Azithromycin (ZITHROMAX TABLET) 250 Mg Tb, 250 MG PO DAILY for 3 Days, #3 TAB Prov:MICHELLE BEARD MD 01/03/24 Methylprednisolone (Medrol Dosepak) 4 Mg [place], 4 MG PO UD, #21 TAB UAD Prov:MICHELLE BEARD MD 01/03/24 Current Medications Current Medications Medications (Trade) Dose Ordered Sig/Noreen Route PRN Reason Start Time Stop Time Status Last Admin Acetaminophen/ Hydrocodone Bitart ([place] 5/325MG Tab) 1 tab Q4HP PRN PO MODERATE PAIN (4-6 PAIN SCALE) 07/29/24 14:00 Ondansetron HCl (Zofran) 4 mg Q4HP PRN IV NAUSEA / VOMITING 07/29/24 14:00 Docusate Sodium (Colace Capsule) 100 mg BIDPRN PRN PO FOR CONSTIPATION 07/29/24 14:00 Acetaminophen (Tylenol Tablet) 650 mg Q6HP PRN PO PAIN SCALE 1-3 OR TEMP>100.4 07/29/24 14:00 Ceftriaxone Sodium 50 ml @ 100 mls/hr DAILY@09 IV 07/30/24 09:00 Metronidazole 100 ml @ 100 mls/hr Q8HR IV 07/29/24 14:00 07/29/24 15:27 Hydrochlorothiazide (hydroCHLOROthiazide TABLET) 25 mg DAILY PO 07/30/24 10:00 Paroxetine HCl (Paxil Tablet) 30 mg DAILY PO 07/30/24 10:00 Patient Own Medication 200 mg HS PO 07/29/24 22:00 Temazepam (Restoril) 15 mg QHSP PRN PO FOR INSOMNIA 07/29/24 14:30 Levothyroxine Sodium (Synthroid Tablet) 25 mcg QAM PO 07/30/24 07:00 Diagnostic Test (Pha) (Accu-Chek Comfort Curve T) 1 strip ACHS 07/29/24 17:00 Insulin Human Regular (InsuLIN R) HS SC 07/29/24 22:00 Insulin Human Regular (InsuLIN R) AC SC 07/29/24 17:00 Dextrose 50 ml UD PRN IV Blood Sugar LESS THAN 60 07/29/24 14:15 Pantoprazole Sodium (Protonix) 40 mg DAILY IV 07/30/24 10:00 Review of Systems Allergy- NKDA Personal History/ Social History- denies smoking/alcoholism/drug abuse Patient was seen today at the bedside. Patient Cardiovascular- deny acute chest pain or shortness of breath or cough or palpitation Respiratory denies cough or short of breath or wheezing Musculoskeletal-denies acute joint swelling or tenderness or redness Neurological- denies acute dysarthria, dysphagia, change in vision Psychiatry- denies depression or SI or HI Skin- denies acute rash or purpura Vital Signs Vital Signs Date Time Temp Pulse Resp B/P (MAP) Pulse Ox O2 Delivery O2 Flow Rate FiO2 07/29/24 15:00 79 16 124/58 (80) 97 07/29/24 13:18 Room Air* 0 21 07/29/24 13:18 98.0 98.0 Physical Exam General examination- awake and alert HEENT- PEERLA, no acute nasal discharge Cardiovascular- S1-S2 audible, rate and rhythm regular, no murmur Respiratory- CTAB, no wheeze or rhonchi Gastrointestinal-abdominal wall tenderness++, diffuse, bowel sound+. Nondistended Musculoskeletal-no acute joint swelling or tenderness or redness Lower extremity- no leg edema Neurological- cranial nerves intact, no acute dysarthria or dysphagia Psychiatry- denies depression or SI or HI Skin- no acute rash or purpura Labs/Diagnostic Data Labs Test 07/29/24 15:29 07/29/24 12:08 07/29/24 08:25 07/29/24 07:44 Range/Units Troponin I High Sensitivity 62 *H </=34 ng/L Lactic Acid Level 2.9 *H 0.4-2.0 mmol/L White Blood Count 7.6 4.4-10.8 10^3/uL Red Blood Count 4.16 4.0-5.20 10^6/uL Hemoglobin 12.0 L 12.2-16.2 g/dL Hematocrit 36.0 36.0-46.0 % Mean Corpuscular Volume 86.6 80.0-100.0 fL Mean Corpuscular Hemoglobin 28.8 28.0-32.0 pg Mean Corpuscular Hemoglobin Concent 33.2 32.0-36.0 g/dL Red Cell Distribution Width 14.9 H 11.8-14.3 % Platelet Count 303 140-450 10^3/uL Mean Platelet Volume 8.0 6.9-10.8 fL Neutrophils (%) (Auto) 66.7 37.0-80.0 % Lymphocytes (%) (Auto) 21.7 10.0-50.0 % Monocytes (%) (Auto) 10.3 0.0-12.0 % Eosinophils (%) (Auto) 1.1 0.0-7.0 % Basophils (%) (Auto) 0.2 0.0-2.0 % Neutrophils # (Auto) 5.1 1.6-8.6 10 ^3/uL Lymphocytes # (Auto) 1.7 0.4-5.4 10 ^3/uL Monocytes # (Auto) 0.8 0-1.3 10 ^3/uL Eosinophils # (Auto) 0.1 0-0.8 10 ^3/uL Basophils # (Auto) 0 0-0.2 10 ^3/uL Nucleated Red Blood Cells 0.0 % Sodium Level 141 136-145 mmol/L Potassium Level 3.6 3.5-5.1 mmol/L Chloride Level 106 98-107 mmol/L Carbon Dioxide Level 22 20-31 mmol/L Anion Gap 13 5-15 Blood Urea Nitrogen 34 H 9-23 mg/dL Creatinine 1.75 H 0.550-1.02 mg/dL Glomerular Filtration Rate Calc 30 >90 mL/min BUN/Creatinine Ratio 19.4 10.0-20.0 Serum Glucose 286 H 74-106 mg/dL Calcium Level 9.8 8.7-10.4 mg/dL Urine Color Yellow Yellow Urine Clarity Turbid H Clear Urine pH 5.0 5.0-9.0 Urine Specific [place] 1.026 1.001-1.035 Urine Protein 1+ H Negative Urine Ketones Negative Negative Urine Blood Negative Negative /uL Urine Nitrite Negative Negative Urine Bilirubin Negative Negative Urine Urobilinogen Normal Negative mg/dL Urine Leukocyte Esterase 3+ Negative /uL Urine RBC 4 0 - 4 /hpf Urine Microscopic WBC 23 H 0-5 /HPF Urine Squamous Epithelial Cells Mod <5 /hpf Urine Bacteria Few H None Seen /hpf Urine Hyaline Casts Many 0 - 2 /lpf Urine Mucus Few None Seen Urine Glucose Trace Normal mg/dL Assessment Assessment and plan Acute gastroenteritis Suspected acute enterocolitis Intractable abdominal pain and nausea and diarrhea likely due to acute enterocolitis NSTEMI likely due to VMN UTI Lactic acidosis Hepatic steatosis Diverticulosis Events Patient with ongoing abdominal pain Tolerating liquid diet well Elevated lactic acid and troponin I History of colonoscopy and endoscopy 4 years before, as per patient no significant finding Plan Ordered IV fluid Continue IV antibiotic Continue pantoprazole as prescribed Recommended for cardiology consult for elevated troponin I and also for cardiac clearance for possible endoscopy/colonoscopy Monitor CBC, CMP PUD prophylaxis: Pantoprazole DVT prophylaxis: Lovenox Plan discussed with Dr. Mary Higginbotham , nursing staff, Total time spent on patient evaluation, chart review, assessment and plan, discussion discussion >35 minutes Plan discussed with: Patient, Other (RN) MARCY GUERRA RESIDENT Jul 29, 2024 17:41
[2024-07-29] MEDS: ENOXAPARIN SOD 30 MG/0.3 ML SYRINGE SC ONE (17:45)
[2024-07-29] MEDS: PANTOPRAZOLE 40 MG/10 ML VIAL INJ IV ONE (19:26)
[2024-07-29 21:49] VITALS: BP 135/52; PULSE 70; RESP 20; TEMP 98.5; O2SAT 97
[2024-07-29 23:03] VITALS: BP 135/52; PULSE 70; RESP 20; TEMP 98.5; O2SAT 97
[2024-07-29] MEDS: HYDROcodone-ACET 5/325MG TAB PO PRN (23:36)
[2024-07-30] VITALS (7 sets, daily range): BP systolic 114–160; BP diastolic 37–64; PULSE 60–67; RESP 14–20; TEMP 96.7–98.3; O2SAT 94–98
[2024-07-30] MEDS ORDERED: BENA-36 PO (03:24)
[2024-07-30] MEDS ORDERED: BENA40TA71 PO (03:24)
[2024-07-30] MEDS ORDERED: ATOR10TA PO (03:24)
[2024-07-30 06:23] LABS: Basophils # (auto) 0 10 ^3/uL (0-0.2); Basophils % (auto) 0.2 % (0.0-2.0); Eosinophils # (auto) 0.2 10 ^3/uL (0-0.8); Eosinophils % (auto) 4.7 % (0.0-7.0); Hematocrit 30.1 % (36.0-46.0); Hemoglobin 10.5 g/dL (12.2-16.2); Lymphocytes # (auto) 2.1 10 ^3/uL (0.4-5.4); Lymphocytes % (auto) 42.2 % (10.0-50.0); Mean Corpuscular Hemoglobin 29.9 pg (28.0-32.0); Mean Corpuscular Hgb Conc. 34.8 g/dL (32.0-36.0); Mean Corpuscular Volume 85.9 fL (80.0-100.0); Monocytes # (auto) 0.6 10 ^3/uL (0-1.3); Monocytes % (auto) 11.4 % (0.0-12.0); Neutrophils # (auto) 2.1 10 ^3/uL (1.6-8.6); Neutrophils % (auto) 41.5 % (37.0-80.0); Platelet Count (auto) 281 10^3/uL (140-450); Red Blood Cells 3.51 10^6/uL (4.0-5.20); White Blood Cell 5.1 10^3/uL (4.4-10.8)
[2024-07-30] MEDS: LEVOTHYROXINE SODIUM 25 MCG TAB PO SCH (06:29)
[2024-07-30 06:41] LABS: Alanine Aminotransferase 21 U/L (7-40); Alkaline Phosphatase 70 U/L (46-116); Anion Gap 10 (5-15); BUN/Creatinine Ratio 26.8 (10.0-20.0); Carbon Dioxide 25 mmol/L (20-31); Potassium 3.7 mmol/L (3.5-5.1); Sodium 143 mmol/L (136-145); Total Protein 6.2 g/dL (5.7-8.2)
[2024-07-30 06:42] LABS: Albumin 3.7 g/dL (3.2-4.8); Aspartate Aminotransferase 23 U/L (<34)
[2024-07-30 06:43] LABS: Bilirubin, Total 0.3 mg/dL (0.2-1.0); Blood Urea Nitrogen 30 mg/dL (9-23); Calcium 8.3 mg/dL (8.7-10.4); Chloride 108 mmol/L (98-107); Glucose 134 mg/dL (74-106)
--- NOTE | 2024-07-30 08:37 | DVHINCON2 ---
Date Seen: Jul 30, 2024 Referring Physician MD Kandy Reason for Consultation Cardiac risk stratification History of Present Illness This is a pleasant 79-year-old female who presented to the emergency room with a chief complaint of abdominal pain for four days. The patient complains of abd ominal pain associated with generalized weakness, diarrhea, and a headache. Denied nausea and vomiting. GI team requesting cardiac risk stratification for possible upper endoscopy/colonoscopy. The patient denies any chest pain, SOB, palpitations, dizziness, or syncopal events. States she has an excellent functional capacity and is able to ambulate with the assistance, fatigue, exertional angina, or dyspnea on exertion. A 12 lead electrocardiogram revealed a normal sinus rhythm without ST-T changes. Troponin levels peaked at 112 ng/L. Significant medical history includes hypertension, dyslipidemia, insulin- dependent diabetes mellitus, depression, anxiety, and obesity. Past Medical History Past medical history reviewed. No other significant than mentioned above. Past Surgical History Right lower extremity varicose veins Cholecystectomy Hysterectomy Bilateral cataracts Family History: Family history: Asthma 19 CHILD Family history: Diabetes mellitus 19 CHILD 19 CHILD Family history: Hypercholesterolemia (situation) 19 CHILD Family history: Hypertension 19 CHILD 19 CHILD Family History Family history reviewed. Social History Denies the use of illicit drugs, alcohol, or tobacco use. Allergies: Coded Allergies: NO KNOWN ALLERGIES (Verified , 02/19/14) Home Meds Reported Medications Atorvastatin Calcium (Lipitor) 10 Mg Tab, 1 TAB PO QPM, #90 TAB 1 Refill 07/30/24 Benazepril Hcl (Benazepril Hcl) 40 Mg Tab, 40 MG PO DAILY for 30 Days, MG 07/30/24 Benazepril Hcl (Benazepril Hcl) 20 Mg Tab, 20 MG PO DAILY for 30 Days, MG 07/30/24 Metformin Hydrochloride (Metformin Hcl) 1,000 Mg Tab, 1 TAB PO BID 07/29/24 Levothyroxine Sodium (Levothyroxine Sodium) 25 Mcg Tab, 1 TAB PO DAILY 07/29/24 Gemfibrozil (Gemfibrozil) 600 Mg Tab, 1 TAB PO BID, #60 TAB 5 Refills 12/31/23 Glipizide (Glipizide) 10 Mg Tab, 10 MG PO BID for 30 Days, MG 09/13/23 Temazepam (Temazepam) 30 Mg Cap, 15 MG PO QPM, CAP 09/13/23 Quetiapine Fumerate (QUETIAPINE FUMARATE) 200 Mg Tab, 200 MG PO QPM for 30 Days, MG 09/13/23 Paroxetine (PAXIL TABLET) 20 Mg Tb, 30 MG PO QAM, TAB 09/13/23 Hydrochlorothiazide (Hydrochlorothiazide) 25 Mg Tab, 25 MG PO DAILY for 30 Days, MG 09/13/23 Gabapentin (Gabapentin) 300 Mg Cap, 300 MG PO TID for 30 Days, MG 09/13/23 Discontinued Reported Medications Metformin Hydrochloride (Metformin Hcl) 500 Mg Tab, 1000 MG PO BID for 30 Days, MG 09/13/23 Discontinued Scripts Ibuprofen Micronized (MOTRIN TABLET) 600 Mg Tb, 600 MG PO TID PRN, #40 TAB *Black box warning-NSAIDS can increase risk of NM & hypertension, GI irritation, ulceration, bleed, perferation. Do not use post cardiac surgery. Use short duration/lowest effective dose. Prov:NIKOLAI JOHNSON MD 07/13/24 Azithromycin (ZITHROMAX TABLET) 250 Mg Tb, 250 MG PO DAILY for 3 Days, #3 TAB Prov:MICHELLE BEARD MD 01/03/24 Methylprednisolone (Medrol Dosepak) 4 Mg [place], 4 MG PO UD, #21 TAB UAD Prov:MICHELLE BEARD MD 01/03/24 Home Meds Home medications reviewed. Current Medications Current Medications Medications (Trade) Dose Ordered Sig/Noreen Route PRN Reason Start Time Stop Time Status Last Admin Acetaminophen/ Hydrocodone Bitart (Warren 5/325MG Tab) 1 tab Q4HP PRN PO MODERATE PAIN (4-6 PAIN SCALE) 07/29/24 14:00 07/30/24 06:29 Ondansetron HCl (Zofran) 4 mg Q4HP PRN IV NAUSEA / VOMITING 07/29/24 14:00 Docusate Sodium (Colace Capsule) 100 mg BIDPRN PRN PO FOR CONSTIPATION 07/29/24 14:00 Acetaminophen (Tylenol Tablet) 650 mg Q6HP PRN PO PAIN SCALE 1-3 OR TEMP>100.4 07/29/24 14:00 Ceftriaxone Sodium 50 ml @ 100 mls/hr DAILY@09 IV 07/30/24 09:00 Metronidazole 100 ml @ 100 mls/hr Q8HR IV 07/29/24 14:00 07/30/24 06:30 Hydrochlorothiazide (hydroCHLOROthiazide TABLET) 25 mg DAILY PO 07/30/24 10:00 Paroxetine HCl (Paxil Tablet) 30 mg DAILY PO 07/30/24 10:00 Patient Own Medication 200 mg HS PO 07/29/24 22:00 Temazepam (Restoril) 15 mg QHSP PRN PO FOR INSOMNIA 07/29/24 14:30 Levothyroxine Sodium (Synthroid Tablet) 25 mcg QAM PO 07/30/24 07:00 07/30/24 06:29 Diagnostic Test (Pha) (Accu-Chek Comfort Curve T) 1 strip ACHS 07/29/24 17:00 07/30/24 06:23 Insulin Human Regular (InsuLIN R) HS SC 07/29/24 22:00 07/29/24 23:54 Insulin Human Regular (InsuLIN R) AC SC 07/29/24 17:00 07/29/24 17:00 Dextrose 50 ml UD PRN IV Blood Sugar LESS THAN 60 07/29/24 14:15 Pantoprazole Sodium (Protonix) 40 mg DAILY IV 07/30/24 10:00 Enoxaparin Sodium (Lovenox) 30 mg DAILY@1800 SC 07/30/24 18:00 Review of Systems Constitutional: No symptom reported Ears, Nose, & Throat: No symptom reported Eyes: No symptom reported Neurological: No symptoms reported Pulmonary/Respiratory: No symptom reported Cardiovascular: No symptom reported Gastrointestinal: Abdominal pain, diarrhea Genitourinary: No symptom reported Musculoskeletal: No symptom reported Skin: No symptom reported Psychiatric: No symptom reported Endocrine: No symptom reported Hemotologic/Lymphatic: No symptom reported Vital Signs Vital Signs Date Time Temp Pulse Resp B/P (MAP) Pulse Ox O2 Delivery O2 Flow Rate FiO2 07/30/24 08:13 98.3 61 20 114/56 (75) 97 98.3 07/29/24 23:03 Room Air* 0 21 Physical Exam General Appearance: Cooperative. Well developed. Obese. In no acute distress Head Exam: Normal inspection Neck Exam: Normal inspection. Non-tender. Normal alignment Pulmonary/Respiratory: Chest non-tender. Clear bilateral breath sounds Cardiovascular/Chest: Regular rate and rhythm. S1, S2. NSR. No murmurs. No JVD. Peripheral Pulses: 2+ Radial (R). 2+ Radial (L). 2+ Pedal (R). 2+ Pedal (L) Abdominal Exam: Normal bowel sounds. Soft. Ankle Exam: Negative ankle edema Lower extremities: Negative lower extremity edema Neuro/Mental Status: A&O x4. Coherent Thoughts/Psych: Normal thought pattern. Appropriate mood and affect. Good judgement and insight Appearance: In no acute distress Skin Exam: Normal inspection. Normal color. Warm. Dry Labs/Diagnostic Data Labs Test 07/30/24 05:27 07/29/24 19:18 07/29/24 15:29 07/29/24 12:08 Range/Units White Blood Count 5.1 # 4.4-10.8 10^3/uL Red Blood Count 3.51 L 4.0-5.20 10^6/uL Hemoglobin 10.5 L 12.2-16.2 g/dL Hematocrit 30.1 #L 36.0-46.0 % Mean Corpuscular Volume 85.9 80.0-100.0 fL Mean Corpuscular Hemoglobin 29.9 28.0-32.0 pg Mean Corpuscular Hemoglobin Concent 34.8 32.0-36.0 g/dL Red Cell Distribution Width 15.0 H 11.8-14.3 % Platelet Count 281 140-450 10^3/uL Mean Platelet Volume 8.1 6.9-10.8 fL Neutrophils (%) (Auto) 41.5 37.0-80.0 % Lymphocytes (%) (Auto) 42.2 10.0-50.0 % Monocytes (%) (Auto) 11.4 0.0-12.0 % Eosinophils (%) (Auto) 4.7 0.0-7.0 % Basophils (%) (Auto) 0.2 0.0-2.0 % Neutrophils # (Auto) 2.1 1.6-8.6 10 ^3/uL Lymphocytes # (Auto) 2.1 0.4-5.4 10 ^3/uL Monocytes # (Auto) 0.6 0-1.3 10 ^3/uL Eosinophils # (Auto) 0.2 0-0.8 10 ^3/uL Basophils # (Auto) 0 0-0.2 10 ^3/uL Nucleated Red Blood Cells 0.0 % Sodium Level 143 136-145 mmol/L Potassium Level 3.7 3.5-5.1 mmol/L Chloride Level 108 H 98-107 mmol/L Carbon Dioxide Level 25 20-31 mmol/L Anion Gap 10 5-15 Blood Urea Nitrogen 30 H 9-23 mg/dL Creatinine 1.12 #H 0.550-1.02 mg/dL Glomerular Filtration Rate Calc 51 >90 mL/min BUN/Creatinine Ratio 26.8 H 10.0-20.0 Serum Glucose 134 H 74-106 mg/dL Calcium Level 8.3 L 8.7-10.4 mg/dL Total Bilirubin 0.3 0.2-1.0 mg/dL Aspartate Amino Transferase (AST) 23 <34 U/L Alanine Aminotransferase (ALT) 21 7-40 U/L Alkaline Phosphatase 70 46-116 U/L Total Protein 6.2 5.7-8.2 g/dL Albumin 3.7 3.2-4.8 g/dL POC Glucose 153 H 70-106 mg/dl Troponin I High Sensitivity 62 *H </=34 ng/L Lactic Acid Level 2.9 *H 0.4-2.0 mmol/L Test 07/29/24 08:25 07/29/24 07:44 Range/Units Hemoglobin A1c 8.2 H <5.7 % A1C Urine Color Yellow Yellow Urine Clarity Turbid H Clear Urine pH 5.0 5.0-9.0 Urine Specific [place] 1.026 1.001-1.035 Urine Protein 1+ H Negative Urine Ketones Negative Negative Urine Blood Negative Negative /uL Urine Nitrite Negative Negative Urine Bilirubin Negative Negative Urine Urobilinogen Normal Negative mg/dL Urine Leukocyte Esterase 3+ Negative /uL Urine RBC 4 0 - 4 /hpf Urine Microscopic WBC 23 H 0-5 /HPF Urine Squamous Epithelial Cells Mod <5 /hpf Urine Bacteria Few H None Seen /hpf Urine Hyaline Casts Many 0 - 2 /lpf Urine Mucus Few None Seen Urine Glucose Trace Normal mg/dL Assessment Preprocedural cardiovascular examination Sepsis with acute colitis NSTEMI type 2 secondary to above Hypertension Dyslipidemia Insulin-dependent diabetes mellitus Obesity Plan/Recommendation (Dr. Colbert) Echocardiogram revealed EF 55%. Revised cardiac risk index (Chintan criteria): Class I at 6.0% risk of , NM or cardiac arrest. Patient has no underlying history of congestive heart failure, coronary artery disease, and has an optimal functional capacity. Per Cardiology standpoint, the patient is at an acceptable-risk for moderate-risk surgery. There is no additional cardiac workup indicated prior to surgery. Thank you for allowing us to care for this patient. Please call with any questions or concerns. This medical document was created using an electronic medical record system with voice recognition software and computerized dictation system. Although this document has been carefully reviewed, there might still be some phonetic and typographical errors. Occasional wrong-word or ``sound-alike substitutions may have occurred due to the inherent limitations of voice recognition software. These areas are purely typographical due to imperfections of the software programs and do not reflect any compromise in the patient's medical care. Please read the chart carefully and recognize, using context, where these substitutions have occurred. Plan discussed with: Patient, Other NYHA Physical activity limitations: NA Date of Service: Jul 30, 2024 Billing Provider: RILEY GROSS Cardiology Common Codes: [id number] INP/OBS CARE (High) RILEY GROSS Jul 30, 2024 08:36
[2024-07-30] MEDS: PARoxetine 20 MG TAB PO SCH (10:52)
[2024-07-30] MEDS: cefTRIAXone 1GM/50ML D5W 50 ML IV SCH (10:52)
[2024-07-30] MEDS: PANTOPRAZOLE 40 MG/10 ML VIAL INJ IV SCH (10:52)
[2024-07-30] MEDS: SODIUM CHLORIDE 0.9% 1,000 ML IV SCH ×2 (10:53→16:31)
[2024-07-30] MEDS: hydroCHLOROthiazide 25 MG TAB PO SCH (10:53)
--- NOTE | 2024-07-30 16:23 | DVHPN2 ---
Progress Note Date Seen: Jul 30, 2024 Medical Necessity Reason Pt with a Central, PICC or Fol: No Subjective Patient reports: No new complaints Review of Systems: HEENT:Normal, CVS:Normal, RESPIRATORY:Normal, GI:Normal, :Normal, MSK:Normal, NEURO:Normal Objective vital signs Vital Sign Date Time Temp Pulse Resp B/P (MAP) Pulse Ox O2 Delivery O2 Flow Rate FiO2 07/30/24 16:17 96.7 63 17 135/64 (87) 96 96.7 07/30/24 08:00 Room Air* 0 21 Total Intake and Output 07/29/24 07/29/24 07/30/24 15:00 23:00 07:00 Intake Total 220 ml Balance 220 ml medications Current Medications Medications Dose Ordered Sig/Noreen Route Start Time Stop Time Status Last Admin Dose Admin Acetaminophen/ Hydrocodone Bitart 1 tab Q4HP PRN PO 07/29/24 14:00 07/30/24 13:25 1 TAB Ondansetron HCl 4 mg Q4HP PRN IV 07/29/24 14:00 Docusate Sodium 100 mg BIDPRN PRN PO 07/29/24 14:00 Acetaminophen 650 mg Q6HP PRN PO 07/29/24 14:00 Ceftriaxone Sodium 50 ml @ 100 mls/hr DAILY@09 IV 07/30/24 09:00 07/30/24 10:52 100 MLS/HR Metronidazole 100 ml @ 100 mls/hr Q8HR IV 07/29/24 14:00 07/30/24 13:18 100 MLS/HR Hydrochlorothiazide 25 mg DAILY PO 07/30/24 10:00 07/30/24 10:53 25 MG Paroxetine HCl 30 mg DAILY PO 07/30/24 10:00 07/30/24 10:52 30 MG Patient Own Medication 200 mg HS PO 07/29/24 22:00 Temazepam 15 mg QHSP PRN PO 07/29/24 14:30 Levothyroxine Sodium 25 mcg QAM PO 07/30/24 07:00 07/30/24 06:29 25 MCG Diagnostic Test (Pha) 1 strip ACHS 07/29/24 17:00 07/30/24 11:03 1 STRIP Insulin Human Regular HS SC 07/29/24 22:00 07/29/24 23:54 2 UNITS Insulin Human Regular AC SC 07/29/24 17:00 07/30/24 11:03 3 UNITS Dextrose 50 ml UD PRN IV 07/29/24 14:15 Pantoprazole Sodium 40 mg DAILY IV 07/30/24 10:00 07/30/24 10:52 40 MG Enoxaparin Sodium 30 mg DAILY@1800 SC 07/30/24 18:00 Sodium Chloride 1,000 ml @ 75 mls/hr [id number] IV 07/30/24 09:15 07/30/24 10:53 75 MLS/HR Diphenoxylate HCl/ Atropine 2.5 mg TID PRN PO 07/30/24 16:15 UNV Cholestyramine Resin 4 gm DAILY@11 PO 07/31/24 11:00 UNV Examination: GENERAL:Normal, HEENT:Normal, NECK:Normal, LUNGS:Normal, CVS:Normal, ABDOMEN:Normal, MSK:Normal, SKIN:Normal, NEURO:Normal, :Normal laboratory and microbiology Laboratory Tests 07/30/24 05:27 Test 07/30/24 05:27 Range/Units Serum Glucose 134 H 74-106 mg/dL Microbiology Date/Time Source Procedure Growth Status 07/29/24 10:05 Blood Blood Culture - Preliminary NO GROWTH AFTER 24 HOURS OF INCUBATION. Resulted Problem List/Assessment/Plan Problem List/Assessment/Plan #1 abd pain with diarrhea ?sepsis: check c diff, gi eval #2 dm: ssi #3 htn #4 obesity #5 nstemi ?type 2 #6 uti: culture #7 acute renal failure ?vasomotor nephropathy: ivf #8 hypothyroidism: cont meds advance care planning- full code- time spent 19 mins Plan discussed with: Patient Dietary Evaluation Review Comments: 1) Advance to CCHO 60 + cardiac diet 2) Refer CDE on DC Expected Outcomes/Goals: To meet >75% estimated needs Fu 2-3 days Date of Service: Jul 30, 2024 Billing Provider: ADELA RIVAS MD Common Visit Codes: [id number] INP/OBS CARE(HIGH) Secondary Visit Codes: [id number] CARE PLAN 30 MINUTES ADELA RIVAS MD Jul 30, 2024 16:23
[2024-07-30] MEDS ORDERED: PANTOPRAZOLE 40 MG/10 ML VIAL INJ IV ONE (16:30)
--- NOTE | 2024-07-30 17:22 | DVHPN2 ---
Progress Note Date Seen: Jul 30, 2024 Resident Creating Document: MARCY GUERRA RESIDENT Medical Necessity Reason Pt with a Central, PICC or Fol: No Subjective Review of Systems Patient had 6 bowel movement today, no blood Ordered stool for WBC, stool for occult blood test Ordered Madiha Chris Pending C diff, stool culture Advance diet to full liquid diet Objective vital signs Vital Sign Date Time Temp Pulse Resp B/P (MAP) Pulse Ox O2 Delivery O2 Flow Rate FiO2 07/30/24 16:17 96.7 63 17 135/64 (87) 96 96.7 07/30/24 08:00 Room Air* 0 21 Total Intake and Output 07/29/24 07/29/24 07/30/24 15:00 23:00 07:00 Intake Total 220 ml Balance 220 ml medications Current Medications Medications Dose Ordered Sig/Noreen Route Start Time Stop Time Status Last Admin Dose Admin Acetaminophen/ Hydrocodone Bitart 1 tab Q4HP PRN PO 07/29/24 14:00 07/30/24 13:25 1 TAB Ondansetron HCl 4 mg Q4HP PRN IV 07/29/24 14:00 Acetaminophen 650 mg Q6HP PRN PO 07/29/24 14:00 Ceftriaxone Sodium 50 ml @ 100 mls/hr DAILY@09 IV 07/30/24 09:00 07/30/24 10:52 100 MLS/HR Metronidazole 100 ml @ 100 mls/hr Q8HR IV 07/29/24 14:00 07/30/24 13:18 100 MLS/HR Paroxetine HCl 30 mg DAILY PO 07/30/24 10:00 07/30/24 10:52 30 MG Temazepam 15 mg QHSP PRN PO 07/29/24 14:30 Levothyroxine Sodium 25 mcg QAM PO 07/30/24 07:00 07/30/24 06:29 25 MCG Diagnostic Test (Pha) 1 strip ACHS 07/29/24 17:00 07/30/24 16:31 1 STRIP Insulin Human Regular HS SC 07/29/24 22:00 07/29/24 23:54 2 UNITS Insulin Human Regular AC SC 07/29/24 17:00 07/30/24 16:55 2 UNITS Dextrose 50 ml UD PRN IV 07/29/24 14:15 Diphenoxylate HCl/ Atropine 2.5 mg TID PRN PO 07/30/24 16:15 Cholestyramine Resin 4 gm DAILY@11 PO 07/31/24 11:00 Sodium Chloride 1,000 ml @ 100 mls/hr Q10H IV 07/30/24 16:30 07/30/24 16:31 100 MLS/HR Pantoprazole Sodium 40 mg DAILY IV 07/31/24 10:00 Saccharomyces Boulardii 250 mg DAILY PO 07/31/24 10:00 laboratory and microbiology Laboratory Tests 07/30/24 05:27 Test 07/30/24 05:27 Range/Units Serum Glucose 134 H 74-106 mg/dL Microbiology Date/Time Source Procedure Growth Status 07/29/24 10:05 Blood Blood Culture - Preliminary NO GROWTH AFTER 24 HOURS OF INCUBATION. Resulted Problem List/Assessment/Plan Problem List/Assessment/Plan Assessment and plan Acute gastroenteritis Suspected acute enterocolitis Suspected sepsis Intractable abdominal pain and nausea and diarrhea likely due to acute enterocolitis NSTEMI likely due to VMN UTI Lactic acidosis Hepatic steatosis Diverticulosis Events Patient with ongoing diarrhea Tolerating liquid diet well Patient was seen by Cardiology, recommendation reviewed and appreciate Plan Continue IV antibiotic Continue pantoprazole as prescribed Ordered stool for leukocyte, stool for occult blood test Continue cluster and Lomotil as prescribed Monitor CBC, CMP PUD prophylaxis: Pantoprazole DVT prophylaxis: Patient ambulating Plan discussed with Dr. Mary Higignbotham , nursing staff, Total time spent on patient evaluation, chart review, assessment and plan, discussion discussion >35 minutes Plan discussed with: Patient, Other (RN) Plan discussed with: Patient, Other (RN) My Orders My Orders Orders - MARCY GUERRA Procedure Category Date Status Time Urine Bacterial LEELA 07/29/24 In Process Culture 17:34 Acute Hepatitis Panel LAB 07/29/24 In Process 17:45 * Cardiology Consult CONS 07/29/24 Transmitted 18:19 Dietary Evaluation Review Comments: 1) Advance to CCHO 60 + cardiac diet 2) Refer CDE on DC Expected Outcomes/Goals: To meet >75% estimated needs Fu 2-3 days MARCY GUERRA RESIDENT Jul 30, 2024 17:22
[2024-07-30] MEDS ORDERED: ENOXAPARIN SOD 30 MG/0.3 ML SYRINGE SC SCH (18:00)
[2024-07-30] MEDS: DIPHENOXYLATE W/ATROPINE 2.5 MG TAB PO PRN (22:02)
--- NOTE | 2024-07-30 23:36 | DVHINCON2 ---
Date Seen: Jul 30, 2024 Referring Physician MD Kandy Reason for Consultation Cardiac risk stratification History of Present Illness This is a 79-year-old female with a PMH of hypertension, dyslipidemia, insulin- dependent diabetes mellitus, depression, anxiety, and obesity. who presented to the ED with a complaint of abdominal pain x 4 days. The patient complains of abdominal pain associated with generalized weakness, diarrhea, and a headache. Denied nausea and vomiting. GI team requesting cardiac risk stratification for possible upper endoscopy/colonoscopy. The patient denies any chest pain, SOB, palpitations, dizziness, or syncopal events States she has an excellent fun ctional capacity and is able to ambulate with the assistance, fatigue, exertional angina, or dyspnea on exertion. A 12 lead electrocardiogram revealed a normal sinus rhythm without ST-T changes. Troponin levels peaked at 112 ng/L. Past Medical History Past medical history reviewed. No other significant than mentioned above. Past Surgical History Right lower extremity varicose veins Cholecystectomy Hysterectomy Bilateral cataracts Family History: Family history: Asthma 19 CHILD Family history: Diabetes mellitus 19 CHILD 19 CHILD Family history: Hypercholesterolemia (situation) 19 CHILD Family history: Hypertension 19 CHILD 19 CHILD Allergies: Coded Allergies: NO KNOWN ALLERGIES (Verified , 02/19/14) Home Meds Reported Medications Atorvastatin Calcium (Lipitor) 10 Mg Tab, 1 TAB PO QPM, #90 TAB 1 Refill 07/30/24 Benazepril Hcl (Benazepril Hcl) 40 Mg Tab, 40 MG PO DAILY for 30 Days, MG 07/30/24 Benazepril Hcl (Benazepril Hcl) 20 Mg Tab, 20 MG PO DAILY for 30 Days, MG 07/30/24 Metformin Hydrochloride (Metformin Hcl) 1,000 Mg Tab, 1 TAB PO BID 07/29/24 Levothyroxine Sodium (Levothyroxine Sodium) 25 Mcg Tab, 1 TAB PO DAILY 07/29/24 Gemfibrozil (Gemfibrozil) 600 Mg Tab, 1 TAB PO BID, #60 TAB 5 Refills 12/31/23 Glipizide (Glipizide) 10 Mg Tab, 10 MG PO BID for 30 Days, MG 09/13/23 Temazepam (Temazepam) 30 Mg Cap, 15 MG PO QPM, CAP 09/13/23 Quetiapine Fumerate (QUETIAPINE FUMARATE) 200 Mg Tab, 200 MG PO QPM for 30 Days, MG 09/13/23 Paroxetine (PAXIL TABLET) 20 Mg Tb, 30 MG PO QAM, TAB 09/13/23 Hydrochlorothiazide (Hydrochlorothiazide) 25 Mg Tab, 25 MG PO DAILY for 30 Days, MG 09/13/23 Gabapentin (Gabapentin) 300 Mg Cap, 300 MG PO TID for 30 Days, MG 09/13/23 Discontinued Reported Medications Metformin Hydrochloride (Metformin Hcl) 500 Mg Tab, 1000 MG PO BID for 30 Days, MG 09/13/23 Discontinued Scripts Ibuprofen Micronized (MOTRIN TABLET) 600 Mg Tb, 600 MG PO TID PRN, #40 TAB *Black box warning-NSAIDS can increase risk of CO & hypertension, GI irritation, ulceration, bleed, perferation. Do not use post cardiac surgery. Use short duration/lowest effective dose. Prov:NIKOLAI JOHNSON MD 07/13/24 Azithromycin (ZITHROMAX TABLET) 250 Mg Tb, 250 MG PO DAILY for 3 Days, #3 TAB Prov:MICHELLE BEARD MD 01/03/24 Methylprednisolone (Medrol Dosepak) 4 Mg [place], 4 MG PO UD, #21 TAB UAD Prov:MICHELLE BEARD MD 01/03/24 Current Medications Current Medications Medications (Trade) Dose Ordered Sig/Noreen Route PRN Reason Start Time Stop Time Status Last Admin Ceftriaxone Sodium 50 ml @ 100 mls/hr DAILY@09 IV 07/30/24 09:00 07/30/24 10:52 Hydrochlorothiazide (hydroCHLOROthiazide TABLET) 25 mg DAILY PO 07/30/24 10:00 07/30/24 16:21 DC 07/30/24 10:53 Paroxetine HCl (Paxil Tablet) 30 mg DAILY PO 07/30/24 10:00 07/30/24 10:52 Levothyroxine Sodium (Synthroid Tablet) 25 mcg QAM PO 07/30/24 07:00 07/30/24 06:29 Pantoprazole Sodium (Protonix) 40 mg DAILY IV 07/30/24 10:00 07/30/24 16:29 DC 07/30/24 10:52 Enoxaparin Sodium (Lovenox) 30 mg DAILY@1800 SC 07/30/24 18:00 07/30/24 16:21 DC Sodium Chloride 1,000 ml @ 75 mls/hr [id number] IV 07/30/24 09:15 07/30/24 16:21 DC 07/30/24 10:53 Diphenoxylate HCl/ Atropine (Lomotil Tablet) 2.5 mg TID PRN PO FOR DIARRHEA 07/30/24 16:15 07/30/24 22:02 Cholestyramine Resin (Questran Powder) 4 gm DAILY@11 PO 07/31/24 11:00 Sodium Chloride 1,000 ml @ 100 mls/hr Q10H IV 07/30/24 16:30 07/30/24 16:31 Pantoprazole Sodium (Protonix) 40 mg DAILY IV 07/31/24 10:00 Saccharomyces Boulardii (Florastor) 250 mg DAILY PO 07/31/24 10:00 Review of Systems Constitutional: No symptom reported Ears, Nose, & Throat: No symptom reported Eyes: No symptom reported Neurological: No symptoms reported Pulmonary/Respiratory: No symptom reported Cardiovascular: No symptom reported Gastrointestinal: Abdominal pain, diarrhea Genitourinary: No symptom reported Musculoskeletal: No symptom reported Skin: No symptom reported Psychiatric: No symptom reported Endocrine: No symptom reported Hemotologic/Lymphatic: No symptom reported Vital Signs Vital Signs Date Time Temp Pulse Resp B/P (MAP) Pulse Ox O2 Delivery O2 Flow Rate FiO2 07/30/24 21:00 98.0 65 16 160/62 (94) 94 98.0 07/30/24 08:00 Room Air* 0 21 Physical Exam GENERAL: Alert and oriented x 3. No acute distress. Obese. EYES: PERRL, EOMI. Anicteric. HENT: Moist mucous membranes. LUNGS: Clear to auscultation bilaterally. CARDIOVASCULAR: Regular rate and rhythm. ABDOMEN: Soft, non-tender and non-distended. EXTREMITIES: No edema. NEUROLOGIC: No focal neurological deficits. SKIN: Warm, dry. Labs/Diagnostic Data Labs Test 07/30/24 21:56 07/30/24 18:45 07/30/24 09:13 07/30/24 05:27 Range/Units POC Glucose 146 H 70-106 mg/dl Stool for White Cells None seen Lactic Acid Level 1.2 0.4-2.0 mmol/L White Blood Count 5.1 # 4.4-10.8 10^3/uL Red Blood Count 3.51 L 4.0-5.20 10^6/uL Hemoglobin 10.5 L 12.2-16.2 g/dL Hematocrit 30.1 #L 36.0-46.0 % Mean Corpuscular Volume 85.9 80.0-100.0 fL Mean Corpuscular Hemoglobin 29.9 28.0-32.0 pg Mean Corpuscular Hemoglobin Concent 34.8 32.0-36.0 g/dL Red Cell Distribution Width 15.0 H 11.8-14.3 % Platelet Count 281 140-450 10^3/uL Mean Platelet Volume 8.1 6.9-10.8 fL Neutrophils (%) (Auto) 41.5 37.0-80.0 % Lymphocytes (%) (Auto) 42.2 10.0-50.0 % Monocytes (%) (Auto) 11.4 0.0-12.0 % Eosinophils (%) (Auto) 4.7 0.0-7.0 % Basophils (%) (Auto) 0.2 0.0-2.0 % Neutrophils # (Auto) 2.1 1.6-8.6 10 ^3/uL Lymphocytes # (Auto) 2.1 0.4-5.4 10 ^3/uL Monocytes # (Auto) 0.6 0-1.3 10 ^3/uL Eosinophils # (Auto) 0.2 0-0.8 10 ^3/uL Basophils # (Auto) 0 0-0.2 10 ^3/uL Nucleated Red Blood Cells 0.0 % Sodium Level 143 136-145 mmol/L Potassium Level 3.7 3.5-5.1 mmol/L Chloride Level 108 H 98-107 mmol/L Carbon Dioxide Level 25 20-31 mmol/L Anion Gap 10 5-15 Blood Urea Nitrogen 30 H 9-23 mg/dL Creatinine 1.12 #H 0.550-1.02 mg/dL Glomerular Filtration Rate Calc 51 >90 mL/min BUN/Creatinine Ratio 26.8 H 10.0-20.0 Serum Glucose 134 H 74-106 mg/dL Calcium Level 8.3 L 8.7-10.4 mg/dL Total Bilirubin 0.3 0.2-1.0 mg/dL Aspartate Amino Transferase (AST) 23 <34 U/L Alanine Aminotransferase (ALT) 21 7-40 U/L Alkaline Phosphatase 70 46-116 U/L Total Protein 6.2 5.7-8.2 g/dL Albumin 3.7 3.2-4.8 g/dL Lipase 37 12-53 U/L Test 07/29/24 15:29 07/29/24 08:25 07/29/24 07:44 Range/Units Troponin I High Sensitivity 62 *H </=34 ng/L Hemoglobin A1c 8.2 H <5.7 % A1C Urine Color Yellow Yellow Urine Clarity Turbid H Clear Urine pH 5.0 5.0-9.0 Urine Specific [place] 1.026 1.001-1.035 Urine Protein 1+ H Negative Urine Ketones Negative Negative Urine Blood Negative Negative /uL Urine Nitrite Negative Negative Urine Bilirubin Negative Negative Urine Urobilinogen Normal Negative mg/dL Urine Leukocyte Esterase 3+ Negative /uL Urine RBC 4 0 - 4 /hpf Urine Microscopic WBC 23 H 0-5 /HPF Urine Squamous Epithelial Cells Mod <5 /hpf Urine Bacteria Few H None Seen /hpf Urine Hyaline Casts Many 0 - 2 /lpf Urine Mucus Few None Seen Urine Glucose Trace Normal mg/dL Microbiology Date/Time Source Procedure Growth Status 07/29/24 10:05 Blood Blood Culture - Preliminary NO GROWTH AFTER 24 HOURS OF INCUBATION. Resulted Assessment Preprocedural cardiovascular examination. Sepsis with acute colitis. NSTEMI type 2 secondary to above. Hypertension. Dyslipidemia. Insulin-dependent diabetes mellitus. Obesity. Plan/Recommendation I agree with your ongoing assessment and care of plan. Patient has been seen by Lilia Jade NP on my behalf. We have discussed the plan with the patient. Echocardiogram revealed EF 55%. Revised cardiac risk index (Chintan criteria): Class I at 6.0% risk of , CO or cardiac arrest. Patient has no underlying history of congestive heart failure, coronary artery disease, and has an optimal functional capacity. Per Cardiology standpoint, the patient is at an acceptable-risk for moderate- risk surgery. There is no additional cardiac workup indicated prior to surgery. [place] for pain management. IV antibiotics as ordered. GI prophylactics. Additional plan as per the hospital course. Plan discussed with: Patient NYHA Physical activity limitations: NA Date of Service: Jul 30, 2024 Billing Provider: NARAYAN LEBLANC MD Cardiology Common Codes: [id number] INP/OBS CARE (High) NARAYAN LEBLANC MD Jul 30, 2024 23:36
[2024-07-31] VITALS (8 sets, daily range): BP systolic 145–187; BP diastolic 49–83; PULSE 61–75; RESP 16–19; TEMP 97.5–98.4; O2SAT 96–98
[2024-07-31 06:52] LABS: Basophils # (auto) 0 10 ^3/uL (0-0.2); Basophils % (auto) 0.5 % (0.0-2.0); Eosinophils # (auto) 0.2 10 ^3/uL (0-0.8); Eosinophils % (auto) 4.6 % (0.0-7.0); Hematocrit 30.3 % (36.0-46.0); Hemoglobin 10.1 g/dL (12.2-16.2); Lymphocytes # (auto) 1.8 10 ^3/uL (0.4-5.4); Lymphocytes % (auto) 43.1 % (10.0-50.0); Mean Corpuscular Hemoglobin 28.7 pg (28.0-32.0); Mean Corpuscular Hgb Conc. 33.5 g/dL (32.0-36.0); Mean Corpuscular Volume 85.8 fL (80.0-100.0); Monocytes # (auto) 0.5 10 ^3/uL (0-1.3); Monocytes % (auto) 12.1 % (0.0-12.0); Neutrophils # (auto) 1.6 10 ^3/uL (1.6-8.6); Neutrophils % (auto) 39.7 % (37.0-80.0); Nucleated Red Blood Cells % 0.1 %; Platelet Count (auto) 313 10^3/uL (140-450); Red Blood Cells 3.53 10^6/uL (4.0-5.20); Red Cell Distribution Width 14.5 % (11.8-14.3); White Blood Cell 4.1 10^3/uL (4.4-10.8)
[2024-07-31 07:01] LABS: INR 1.02 (0.9-1.15); Partial Thromboplastin Time 25.9 SEC (24.5-34.5); Prothrombin Time 10.8 sec (9.3-11.8)
[2024-07-31 07:03] LABS: Anion Gap 11 (5-15); Carbon Dioxide 23 mmol/L (20-31); Potassium 3.7 mmol/L (3.5-5.1); Sodium 142 mmol/L (136-145)
[2024-07-31 07:09] LABS: BUN/Creatinine Ratio 19.8 (10.0-20.0); Blood Urea Nitrogen 18 mg/dL (9-23)
[2024-07-31 07:10] LABS: Calcium 8.1 mg/dL (8.7-10.4); Chloride 108 mmol/L (98-107); Glucose 141 mg/dL (74-106); Magnesium 1.7 mg/dL (1.6-2.6)
--- NOTE | 2024-07-31 08:49 | DVHSR ---
APPROVED REPORT EXAM: Two-dimensional and M-mode echocardiogram with Doppler and color Doppler. Blood Pressure: 115/49 mmHg INDICATION ELEVATED TROPONIN RISK FACTORS Obesity: Height: 5'3, Weight: 173 DIMENSIONS LVDd3.3 (3.8-5.7cm)LA (2D)3.7 (1.9-4.0cm)Aortic Root (2.0-3.7cm) LVDs2.1 (2.5-4.0cm)LA (MM) (1.9-4.0cm)Aortic Cusp Exc (1.5-2.0cm) EF (%) 60.0 (55-70%)Rt. Atrium4.6 (1.9-4.0cm)Asc. Aorta cm IVSd0.9 (0.7-1.1cm)RV (D) (1.8-2.4cm) PWd1.0 (0.7-1.1cm) Mitral Valve MitralMitral Stenosis E wave0.69m/sMV Mean GR.mmHg A wave1.08m/sMV Peak GR.mmHg E/A ratio0.62D MVAcm2 DECEL [id number] 1/2 Timems Aortic Valve Aortic ValveAortic Stenosis V11.10m/Gigi Mean GR.4mmHg V21.31m/Gigi Peak GR.7mmHg LVOT Diameter1.8 (1.8-2.4cm)Doppler AVA2.14cm2 Pulmonic Valve V20.91m/s Tricuspid Valve TR Velocity2.84m/s [id number] Conclusion NORMAL LV EF AND IS 65% NORMAL RV FUNCTION SLIGHTLY DILATED RIGHT ATRIUM MILD PULMONARY HYPERTENSION RVSP IS 39 MM OF HG AND IS BORDERLINE ELEVATED NORMAL VALVES NO EFFUSION
[2024-07-31] MEDS: PANTOPRAZOLE 40 MG/10 ML VIAL INJ IV SCH (09:08)
[2024-07-31] MEDS: FLORASTOR (S. BOULARDII) 250 MG CAP PO SCH (09:10)
[2024-07-31] MEDS: CHOLESTYRAMINE 4 GM POWDER PO SCH (11:38)
[2024-07-31 11:41] LABS: Hepatitis A Ab IgM Negative; Hepatitis B Core IgM Negative (Negative); Hepatitis B Surface Antigen Negative (Negative); Hepatitis C Antibody Negative (Negative)
--- NOTE | 2024-07-31 14:26 | DVHPN2 ---
Progress Note Date Seen: Jul 31, 2024 Medical Necessity Reason Pt with a Central, PICC or Fol: No Subjective Patient reports: No new complaints Review of Systems: HEENT:Normal, CVS:Normal, RESPIRATORY:Normal, GI:Normal, :Normal, MSK:Normal, NEURO:Normal Objective vital signs Vital Sign Date Time Temp Pulse Resp B/P (MAP) Pulse Ox O2 Delivery O2 Flow Rate FiO2 07/31/24 12:39 98.1 61 18 150/56 (87) 96 98.1 07/31/24 08:10 Room Air* 0 21 Total Intake and Output 07/30/24 07/30/24 07/31/24 15:00 23:00 07:00 Intake Total 150 ml 800 ml 1780 ml Output Total 200 ml Balance -50 ml 800 ml 1780 ml medications Current Medications Medications Dose Ordered Sig/Noreen Route Start Time Stop Time Status Last Admin Dose Admin Acetaminophen/ Hydrocodone Bitart 1 tab Q4HP PRN PO 07/29/24 14:00 07/31/24 01:14 1 TAB Ondansetron HCl 4 mg Q4HP PRN IV 07/29/24 14:00 Acetaminophen 650 mg Q6HP PRN PO 07/29/24 14:00 Ceftriaxone Sodium 50 ml @ 100 mls/hr DAILY@09 IV 07/30/24 09:00 07/31/24 09:08 100 MLS/HR Metronidazole 100 ml @ 100 mls/hr Q8HR IV 07/29/24 14:00 07/31/24 13:52 100 MLS/HR Paroxetine HCl 30 mg DAILY PO 07/30/24 10:00 07/31/24 09:09 30 MG Temazepam 15 mg QHSP PRN PO 07/29/24 14:30 Levothyroxine Sodium 25 mcg QAM PO 07/30/24 07:00 07/31/24 05:58 25 MCG Diagnostic Test (Pha) 1 strip ACHS 07/29/24 17:00 07/31/24 11:52 1 STRIP Insulin Human Regular HS SC 07/29/24 22:00 07/30/24 22:12 2 UNITS Insulin Human Regular AC SC 07/29/24 17:00 07/31/24 11:49 3 UNITS Dextrose 50 ml UD PRN IV 07/29/24 14:15 Diphenoxylate HCl/ Atropine 2.5 mg TID PRN PO 07/30/24 16:15 07/30/24 22:02 2.5 MG Cholestyramine Resin 4 gm DAILY@11 PO 07/31/24 11:00 07/31/24 11:38 4 GM Sodium Chloride 1,000 ml @ 100 mls/hr Q10H IV 07/30/24 16:30 07/31/24 04:50 100 MLS/HR Pantoprazole Sodium 40 mg DAILY IV 07/31/24 10:00 07/31/24 09:08 40 MG Saccharomyces Boulardii 250 mg DAILY PO 07/31/24 10:00 07/31/24 09:10 250 MG Examination: GENERAL:Normal, HEENT:Normal, NECK:Normal, LUNGS:Normal, CVS:Normal, ABDOMEN:Normal, MSK:Normal, SKIN:Normal, NEURO:Normal, :Normal laboratory and microbiology Laboratory Tests 07/31/24 06:09 Test 07/31/24 06:09 Range/Units Serum Glucose 141 H 74-106 mg/dL Microbiology Date/Time Source Procedure Growth Status 07/30/24 18:45 Stool Stool Culture - Preliminary Resulted 07/30/24 18:45 Stool Shiga Toxin I & II Pending Resulted 07/30/24 18:45 Stool Clostridium difficile Toxin Assay Pending Resulted 07/29/24 15:56 Voided Urine Urine Culture - Preliminary Resulted 07/29/24 10:05 Blood Blood Culture - Preliminary NO GROWTH AFTER 48 HOURS OF INCUBATION. Resulted Problem List/Assessment/Plan Problem List/Assessment/Plan #1 abd pain with diarrhea ?sepsis: check c diff, gi eval #2 dm: ssi #3 htn #4 obesity #5 nstemi ?type 2 #6 uti: culture #7 acute renal failure ?vasomotor nephropathy: ivf #8 hypothyroidism: cont meds advance care planning- full code- time spent 19 mins Plan discussed with: Patient My Orders My Orders Orders - ADELA RIVAS MD Procedure Category Date Status Time Sodium Chloride 0.9% PHA 07/30/24 In Process 16:30 Pantoprazole PHA 07/31/24 In Process (Protonix) 10:00 Florastor (S. PHA 07/31/24 In Process Boulardii) (Florastor) 10:00 Dietary Evaluation Review Comments: 1) [facility] 2) Refer CDE on DC Expected Outcomes/Goals: To meet >75% estimated needs Fu 2-3 days Date of Service: Jul 31, 2024 Billing Provider: ADELA RIVAS MD Common Visit Codes: [id number] INP/OBS CARE(HIGH) ADELA RIVAS MD Jul 31, 2024 14:26
[2024-07-31] MEDS: MAGNESIUM SULFATE 1GM/100ML 100 ML IV SCH (15:57)
--- NOTE | 2024-07-31 16:46 | DVHPN2 ---
Progress Note Date Seen: Jul 31, 2024 Resident Creating Document: MARCY GUERRA RESIDENT Medical Necessity Reason Pt with a Central, PICC or Fol: No Subjective Review of Systems Patient had 5 bowel movement in the morning Patient with ongoing abdominal pain with reduced intensity Pending blood culture, uterine culture Still for what blood cell negative Patient was seen by Cardiology Echo 2D revealed LVEF 65%, slightly dilated right arterial, RVSP 39, mild pulmonary hypertension Objective vital signs Vital Sign Date Time Temp Pulse Resp B/P (MAP) Pulse Ox O2 Delivery O2 Flow Rate FiO2 07/31/24 12:39 98.1 61 18 150/56 (87) 96 98.1 07/31/24 08:10 Room Air* 0 21 Total Intake and Output 07/30/24 07/30/24 07/31/24 15:00 23:00 07:00 Intake Total 150 ml 800 ml 1780 ml Output Total 200 ml Balance -50 ml 800 ml 1780 ml medications Current Medications Medications Dose Ordered Sig/Noreen Route Start Time Stop Time Status Last Admin Dose Admin Acetaminophen/ Hydrocodone Bitart 1 tab Q4HP PRN PO 07/29/24 14:00 07/31/24 01:14 1 TAB Ondansetron HCl 4 mg Q4HP PRN IV 07/29/24 14:00 Acetaminophen 650 mg Q6HP PRN PO 07/29/24 14:00 Ceftriaxone Sodium 50 ml @ 100 mls/hr DAILY@09 IV 07/30/24 09:00 07/31/24 09:08 100 MLS/HR Paroxetine HCl 30 mg DAILY PO 07/30/24 10:00 07/31/24 09:09 30 MG Temazepam 15 mg QHSP PRN PO 07/29/24 14:30 Levothyroxine Sodium 25 mcg QAM PO 07/30/24 07:00 07/31/24 05:58 25 MCG Diagnostic Test (Pha) 1 strip ACHS 07/29/24 17:00 07/31/24 11:52 1 STRIP Insulin Human Regular HS SC 07/29/24 22:00 07/30/24 22:12 2 UNITS Insulin Human Regular AC SC 07/29/24 17:00 07/31/24 11:49 3 UNITS Dextrose 50 ml UD PRN IV 07/29/24 14:15 Diphenoxylate HCl/ Atropine 2.5 mg TID PRN PO 07/30/24 16:15 07/30/24 22:02 2.5 MG Cholestyramine Resin 4 gm DAILY@11 PO 07/31/24 11:00 07/31/24 11:38 4 GM Sodium Chloride 1,000 ml @ 100 mls/hr Q10H IV 07/30/24 16:30 07/31/24 04:50 100 MLS/HR Pantoprazole Sodium 40 mg DAILY IV 07/31/24 10:00 07/31/24 09:08 40 MG Saccharomyces Boulardii 250 mg DAILY PO 07/31/24 10:00 07/31/24 09:10 250 MG Metronidazole 500 mg Q8HR PO 07/31/24 22:00 Magnesium Sulfate/ Dextrose 100 ml @ 100 mls/hr Q1HR IV 07/31/24 15:00 07/31/24 16:59 07/31/24 15:57 100 MLS/HR laboratory and microbiology Laboratory Tests 07/31/24 06:09 Test 07/31/24 06:09 Range/Units Serum Glucose 141 H 74-106 mg/dL Microbiology Date/Time Source Procedure Growth Status 07/30/24 18:45 Stool Stool Culture - Preliminary Resulted 07/30/24 18:45 Stool Shiga Toxin I & II - Final Resulted 07/30/24 18:45 Stool Clostridium difficile Toxin Assay - Final Resulted 07/29/24 15:56 Voided Urine Urine Culture - Preliminary Resulted 07/29/24 10:05 Blood Blood Culture - Preliminary NO GROWTH AFTER 48 HOURS OF INCUBATION. Resulted Problem List/Assessment/Plan Problem List/Assessment/Plan Assessment and plan Acute gastroenteritis Suspected acute enterocolitis Suspected sepsis Intractable abdominal pain and nausea and diarrhea likely due to acute enterocolitis NSTEMI likely due to VMN UTI Lactic acidosis Hepatic steatosis Diverticulosis Events Patient with ongoing abdominal pain with reduced intensity Pending blood culture, uterine culture Still for what blood cell negative Patient was seen by Cardiology Echo 2D revealed LVEF 65%, slightly dilated right arterial, RVSP 39, mild pulmonary hypertension Plan Possible colonoscopy on Monday if appropriate Continue IV antibiotic Continue pantoprazole as prescribed Pending stool culture, urine culture Continue Florastor, Questran, Monitor CBC, CMP PUD prophylaxis: Pantoprazole DVT prophylaxis: Patient ambulating Plan discussed with Dr. Mary Higginbotham , nursing staff, Total time spent on patient evaluation, chart review, assessment and plan, discussion discussion >35 minutes Plan discussed with: Patient, Other (RN) Plan discussed with: Patient, Son, Other (RN) Dietary Evaluation Review Comments: 1) Advance to [facility] 60 + cardiac diet 2) Refer CDE on DC Expected Outcomes/Goals: To meet >75% estimated needs Fu 2-3 days MARCY GUERRA RESIDENT Jul 31, 2024 16:46
[2024-07-31] MEDS: hydrALAZINE HCL 20 MG/ML VL IV PRN (18:15)
--- NOTE | 2024-07-31 18:15 | DVHPN2 ---
Progress Note - Dictate Date Seen: Jul 31, 2024 Medical Necessity Reason Pt with a Central, PICC or Fol: No Subjective Patient was seen and evaluated in follow up. Patient is complains of abdominal pain. Patient had 5 bowel movement in the morning. Echo 2D revealed LVEF 65%, slightly dilated right arterial, RVSP 39, mild pulmonary hypertension Telemetry reviewed. vital signs Vital Sign Date Time Temp Pulse Resp B/P (MAP) Pulse Ox O2 Delivery O2 Flow Rate FiO2 07/31/24 16:55 98.4 61 19 176/55 (95) 97 98.4 07/31/24 08:10 Room Air* 0 21 Total Intake and Output 07/30/24 07/30/24 07/31/24 15:00 23:00 07:00 Intake Total 150 ml 800 ml 1780 ml Output Total 200 ml Balance -50 ml 800 ml 1780 ml medications Current Medications Medications Dose Ordered Sig/Noreen Route Start Time Stop Time Status Last Admin Dose Admin Acetaminophen/ Hydrocodone Bitart 1 tab Q4HP PRN PO 07/29/24 14:00 07/31/24 01:14 1 TAB Ondansetron HCl 4 mg Q4HP PRN IV 07/29/24 14:00 Acetaminophen 650 mg Q6HP PRN PO 07/29/24 14:00 Ceftriaxone Sodium 50 ml @ 100 mls/hr DAILY@09 IV 07/30/24 09:00 07/31/24 09:08 100 MLS/HR Paroxetine HCl 30 mg DAILY PO 07/30/24 10:00 07/31/24 09:09 30 MG Temazepam 15 mg QHSP PRN PO 07/29/24 14:30 Levothyroxine Sodium 25 mcg QAM PO 07/30/24 07:00 07/31/24 05:58 25 MCG Diagnostic Test (Pha) 1 strip ACHS 07/29/24 17:00 07/31/24 17:19 1 STRIP Insulin Human Regular HS SC 07/29/24 22:00 07/30/24 22:12 2 UNITS Insulin Human Regular AC SC 07/29/24 17:00 07/31/24 17:20 2 UNITS Dextrose 50 ml UD PRN IV 07/29/24 14:15 Diphenoxylate HCl/ Atropine 2.5 mg TID PRN PO 07/30/24 16:15 07/30/24 22:02 2.5 MG Cholestyramine Resin 4 gm DAILY@11 PO 07/31/24 11:00 07/31/24 11:38 4 GM Sodium Chloride 1,000 ml @ 100 mls/hr Q10H IV 07/30/24 16:30 07/31/24 04:50 100 MLS/HR Pantoprazole Sodium 40 mg DAILY IV 07/31/24 10:00 07/31/24 09:08 40 MG Saccharomyces Boulardii 250 mg DAILY PO 07/31/24 10:00 07/31/24 09:10 250 MG Metronidazole 500 mg Q8HR PO 07/31/24 22:00 objective GENERAL: Alert and oriented x 3. No acute distress. Obese. EYES: PERRL, EOMI. Anicteric. HENT: Moist mucous membranes. LUNGS: Clear to auscultation bilaterally. CARDIOVASCULAR: Regular rate and rhythm. ABDOMEN: Soft, non-tender and non-distended. EXTREMITIES: No edema. NEUROLOGIC: No focal neurological deficits. SKIN: Warm, dry. laboratory and microbiology Laboratory Tests 07/31/24 06:09 Test 07/31/24 06:09 Range/Units Serum Glucose 141 H 74-106 mg/dL Problem List Preprocedural cardiovascular examination. Sepsis with acute colitis. NSTEMI type 2 secondary to above. Hypertension. Dyslipidemia. Insulin-dependent diabetes mellitus. Obesity. Assessment/Plan Continued all current supportive medical care. [place] for pain management. IV antibiotics as ordered. IV Hydralazine for SBP >160. GI prophylactics. Additional plan as per the hospital course. Dietary Evaluation Review Comments: 1) [facility] 2) Refer CDE on DC Expected Outcomes/Goals: To meet >75% estimated needs Fu 2-3 days Plan discussed with: Patient NARAYAN LEBLANC MD Jul 31, 2024 17:37
[2024-07-31] MEDS: metroNIDAZOLE 500 MG TAB PO SCH (22:00)
[2024-08-01] VITALS (9 sets, daily range): BP systolic 144–189; BP diastolic 46–80; PULSE 61–80; RESP 16–20; TEMP 97.6–98.7; O2SAT 95–98
[2024-08-01 05:55] LABS: Potassium 3.6 mmol/L (3.5-5.1); Sodium 143 mmol/L (136-145)
[2024-08-01 05:56] LABS: Anion Gap 11 (5-15); Carbon Dioxide 22 mmol/L (20-31)
[2024-08-01 05:57] LABS: Calcium 8.2 mg/dL (8.7-10.4); Chloride 110 mmol/L (98-107)
[2024-08-01 06:01] LABS: BUN/Creatinine Ratio 14.1 (10.0-20.0); Blood Urea Nitrogen 10 mg/dL (9-23)
[2024-08-01 06:02] LABS: Glucose 155 mg/dL (74-106); Magnesium 1.9 mg/dL (1.6-2.6)
--- NOTE | 2024-08-01 11:01 | DVHPN2 ---
Progress Note Date Seen: Aug 01, 2024 Resident Creating Document: MARCY GUERRA RESIDENT Medical Necessity Reason Pt with a Central, PICC or Fol: No Subjective Review of Systems Patient was seen today at bedside Patient Reported no bowel movement today Abdominal pain has improved Tolerating liquid diet well C diff negative, blood culture no growth so far, urine culture no growth Objective vital signs Vital Sign Date Time Temp Pulse Resp B/P (MAP) Pulse Ox O2 Delivery O2 Flow Rate FiO2 08/01/24 08:44 98.3 66 20 147/46 (79) 96 98.3 08/01/24 08:00 Room Air* 0 21 Total Intake and Output 07/31/24 07/31/24 08/01/24 15:00 23:00 07:00 Intake Total 150 ml 1160 ml 560 ml Balance 150 ml 1160 ml 560 ml medications Current Medications Medications Dose Ordered Sig/Noreen Route Start Time Stop Time Status Last Admin Dose Admin Acetaminophen/ Hydrocodone Bitart 1 tab Q4HP PRN PO 07/29/24 14:00 07/31/24 01:14 1 TAB Ondansetron HCl 4 mg Q4HP PRN IV 07/29/24 14:00 Acetaminophen 650 mg Q6HP PRN PO 07/29/24 14:00 Ceftriaxone Sodium 50 ml @ 100 mls/hr DAILY@09 IV 07/30/24 09:00 08/01/24 09:21 100 MLS/HR Paroxetine HCl 30 mg DAILY PO 07/30/24 10:00 08/01/24 09:22 30 MG Temazepam 15 mg QHSP PRN PO 07/29/24 14:30 Levothyroxine Sodium 25 mcg QAM PO 07/30/24 07:00 08/01/24 06:31 25 MCG Diagnostic Test (Pha) 1 strip ACHS 07/29/24 17:00 08/01/24 06:34 1 STRIP Insulin Human Regular HS SC 07/29/24 22:00 07/31/24 22:00 2 UNITS Insulin Human Regular AC SC 07/29/24 17:00 08/01/24 06:34 2 UNITS Dextrose 50 ml UD PRN IV 07/29/24 14:15 Diphenoxylate HCl/ Atropine 2.5 mg TID PRN PO 07/30/24 16:15 07/30/24 22:02 2.5 MG Cholestyramine Resin 4 gm DAILY@11 PO 07/31/24 11:00 07/31/24 11:38 4 GM Sodium Chloride 1,000 ml @ 100 mls/hr Q10H IV 07/30/24 16:30 08/01/24 09:21 100 MLS/HR Pantoprazole Sodium 40 mg DAILY IV 07/31/24 10:00 08/01/24 09:21 40 MG Saccharomyces Boulardii 250 mg DAILY PO 07/31/24 10:00 08/01/24 09:21 250 MG Metronidazole 500 mg Q8HR PO 07/31/24 22:00 08/01/24 06:31 500 MG Hydralazine HCl 10 mg Q6HP PRN IV 07/31/24 17:45 08/01/24 01:48 10 MG laboratory and microbiology Laboratory Tests 08/01/24 04:48 07/31/24 06:09 Test 08/01/24 04:48 Range/Units Serum Glucose 155 H 74-106 mg/dL Microbiology Date/Time Source Procedure Growth Status 07/30/24 18:45 Stool Stool Culture - Preliminary Resulted 07/30/24 18:45 Stool Shiga Toxin I & II - Final Resulted 07/30/24 18:45 Stool Clostridium difficile Toxin Assay - Final Resulted 07/29/24 15:56 Voided Urine Urine Culture - Final Complete 07/29/24 10:05 Blood Blood Culture - Preliminary NO GROWTH AFTER 72 HOURS OF INCUBATION. Resulted Problem List/Assessment/Plan Problem List/Assessment/Plan Assessment and plan Acute gastroenteritis Suspected acute enterocolitis Suspected sepsis Intractable abdominal pain and nausea and diarrhea likely due to acute enterocolitis NSTEMI likely due to VMN UTI Lactic acidosis Hepatic steatosis Diverticulosis Events Patient Reported no bowel movement today morning Abdominal pain has improved Tolerating liquid diet well C diff negative, blood culture no growth so far, urine culture no growth Plan Possible colonoscopy on tomorrow on Monday if appropriate Continue IV antibiotic Continue pantoprazole as prescribed Continue Madiha Fabian, Monitor CBC, CMP PUD prophylaxis: Pantoprazole DVT prophylaxis: Patient ambulating Plan discussed with Dr. Mary Higginbotham , nursing staff, Total time spent on patient evaluation, chart review, assessment and plan, discussion discussion >35 minutes Plan discussed with: Patient, Other (RN) Plan discussed with: Patient (RN), Other Dietary Evaluation Review Comments: 1) Advance to [facility] 60 + cardiac diet 2) Refer CDE on DC Expected Outcomes/Goals: To meet >75% estimated needs Fu 2-3 days MARCY GUERRA RESIDENT Aug 01, 2024 11:01
[2024-08-01] MEDS: GOLYTELY 4L KIT PO ONE (13:20)
[2024-08-01] MEDS: SODIUM CHLORIDE 0.9% 1,000 ML IV SCH (18:00)
--- NOTE | 2024-08-01 18:00 | DVHPN2 ---
Progress Note Date Seen: Aug 01, 2024 Medical Necessity Reason Pt with a Central, PICC or Fol: No Subjective Patient reports: No new complaints Review of Systems: HEENT:Normal, CVS:Normal, RESPIRATORY:Normal, GI:Normal, :Normal, MSK:Normal, NEURO:Normal Objective vital signs Vital Sign Date Time Temp Pulse Resp B/P (MAP) Pulse Ox O2 Delivery O2 Flow Rate FiO2 08/01/24 17:14 98.7 61 20 182/52 (95) 98 98.7 08/01/24 08:00 Room Air* 0 21 Total Intake and Output 07/31/24 07/31/24 08/01/24 15:00 23:00 07:00 Intake Total 150 ml 1160 ml 560 ml Balance 150 ml 1160 ml 560 ml medications Current Medications Medications Dose Ordered Sig/Noreen Route Start Time Stop Time Status Last Admin Dose Admin Acetaminophen/ Hydrocodone Bitart 1 tab Q4HP PRN PO 07/29/24 14:00 07/31/24 01:14 1 TAB Ondansetron HCl 4 mg Q4HP PRN IV 07/29/24 14:00 Acetaminophen 650 mg Q6HP PRN PO 07/29/24 14:00 Ceftriaxone Sodium 50 ml @ 100 mls/hr DAILY@09 IV 07/30/24 09:00 08/01/24 09:21 100 MLS/HR Paroxetine HCl 30 mg DAILY PO 07/30/24 10:00 08/01/24 09:22 30 MG Temazepam 15 mg QHSP PRN PO 07/29/24 14:30 Levothyroxine Sodium 25 mcg QAM PO 07/30/24 07:00 08/01/24 06:31 25 MCG Diagnostic Test (Pha) 1 strip ACHS 07/29/24 17:00 08/01/24 17:01 1 STRIP Insulin Human Regular HS SC 07/29/24 22:00 07/31/24 22:00 2 UNITS Insulin Human Regular AC SC 07/29/24 17:00 08/01/24 11:23 3 UNITS Dextrose 50 ml UD PRN IV 07/29/24 14:15 Diphenoxylate HCl/ Atropine 2.5 mg TID PRN PO 07/30/24 16:15 07/30/24 22:02 2.5 MG Cholestyramine Resin 4 gm DAILY@11 PO 07/31/24 11:00 08/01/24 11:21 4 GM Sodium Chloride 1,000 ml @ 100 mls/hr Q10H IV 07/30/24 16:30 08/01/24 09:21 100 MLS/HR Pantoprazole Sodium 40 mg DAILY IV 07/31/24 10:00 08/01/24 09:21 40 MG Saccharomyces Boulardii 250 mg DAILY PO 07/31/24 10:00 08/01/24 09:21 250 MG Metronidazole 500 mg Q8HR PO 07/31/24 22:00 08/01/24 13:32 500 MG Hydralazine HCl 10 mg Q6HP PRN IV 07/31/24 17:45 08/01/24 16:58 10 MG Examination: GENERAL:Normal, HEENT:Normal, NECK:Normal, LUNGS:Normal, CVS:Normal, ABDOMEN:Normal, MSK:Normal, SKIN:Normal, NEURO:Normal, :Normal laboratory and microbiology Laboratory Tests 08/01/24 04:48 07/31/24 06:09 Test 08/01/24 04:48 Range/Units Serum Glucose 155 H 74-106 mg/dL Microbiology Date/Time Source Procedure Growth Status 07/30/24 18:45 Stool Stool Culture - Preliminary Resulted 07/30/24 18:45 Stool Shiga Toxin I & II - Final Resulted 07/30/24 18:45 Stool Clostridium difficile Toxin Assay - Final Resulted 07/29/24 15:56 Voided Urine Urine Culture - Final Complete 07/29/24 10:05 Blood Blood Culture - Preliminary NO GROWTH AFTER 72 HOURS OF INCUBATION. Resulted Problem List/Assessment/Plan Problem List/Assessment/Plan #1 abd pain with diarrhea ?sepsis: colonoscopy in am #2 dm: ssi #3 htn: benazepril #4 obesity #5 nstemi ?type 2 #6 uti: culture #7 acute renal failure ?vasomotor nephropathy: ivf #8 hypothyroidism: cont meds advance care planning- full code- time spent 19 mins Plan discussed with: Patient My Orders My Orders Orders - ADELA RIVAS MD Procedure Category Date Status Time NS PHA 08/01/24 Verified 18:00 Npo After Midnight MARIELLE 08/01/24 Verified 17:57 Npo (Nothing By DIET 08/02/24 Verified Mouth) Diet Breakfast Benazepril Hcl Tablet PHA 08/01/24 Verified (Lotensin Tablet) 18:00 Benazepril Hcl Tablet PHA 08/02/24 Verified (Lotensin Tablet) 10:00 Dietary Evaluation Review Comments: 1) Advance to [facility] 60 + cardiac diet 2) Refer CDE on DC Expected Outcomes/Goals: To meet >75% estimated needs Fu 2-3 days Date of Service: Aug 01, 2024 Billing Provider: ADELA RIVAS MD Common Visit Codes: [id number] INP/OBS CARE(HIGH) ADELA RIVAS MD Aug 01, 2024 18:00
[2024-08-01] MEDS: BENAZEPRIL HCL 10 MG TAB PO ONE (21:14)
--- NOTE | 2024-08-01 22:54 | DVHPN2 ---
Progress Note - Dictate Date Seen: Aug 01, 2024 Medical Necessity Reason Pt with a Central, PICC or Fol: No Subjective Patient was seen and evaluated in follow up. Patient reports improvement in abdominal pain. Patient tolerating diet. C diff is negative. Blood and urine cultures are negative. vital signs Vital Sign Date Time Temp Pulse Resp B/P (MAP) Pulse Ox O2 Delivery O2 Flow Rate FiO2 08/01/24 12:56 98.4 67 20 153/55 (87) 96 98.4 08/01/24 08:00 Room Air* 0 21 Total Intake and Output 07/31/24 07/31/24 08/01/24 15:00 23:00 07:00 Intake Total 150 ml 1160 ml 560 ml Balance 150 ml 1160 ml 560 ml medications Current Medications Medications Dose Ordered Sig/Noreen Route Start Time Stop Time Status Last Admin Dose Admin Acetaminophen/ Hydrocodone Bitart 1 tab Q4HP PRN PO 07/29/24 14:00 07/31/24 01:14 1 TAB Ondansetron HCl 4 mg Q4HP PRN IV 07/29/24 14:00 Acetaminophen 650 mg Q6HP PRN PO 07/29/24 14:00 Ceftriaxone Sodium 50 ml @ 100 mls/hr DAILY@09 IV 07/30/24 09:00 08/01/24 09:21 100 MLS/HR Paroxetine HCl 30 mg DAILY PO 07/30/24 10:00 08/01/24 09:22 30 MG Temazepam 15 mg QHSP PRN PO 07/29/24 14:30 Levothyroxine Sodium 25 mcg QAM PO 07/30/24 07:00 08/01/24 06:31 25 MCG Diagnostic Test (Pha) 1 strip ACHS 07/29/24 17:00 08/01/24 11:13 1 STRIP Insulin Human Regular HS SC 07/29/24 22:00 07/31/24 22:00 2 UNITS Insulin Human Regular AC SC 07/29/24 17:00 08/01/24 11:23 3 UNITS Dextrose 50 ml UD PRN IV 07/29/24 14:15 Diphenoxylate HCl/ Atropine 2.5 mg TID PRN PO 07/30/24 16:15 07/30/24 22:02 2.5 MG Cholestyramine Resin 4 gm DAILY@11 PO 07/31/24 11:00 08/01/24 11:21 4 GM Sodium Chloride 1,000 ml @ 100 mls/hr Q10H IV 07/30/24 16:30 08/01/24 09:21 100 MLS/HR Pantoprazole Sodium 40 mg DAILY IV 07/31/24 10:00 08/01/24 09:21 40 MG Saccharomyces Boulardii 250 mg DAILY PO 07/31/24 10:00 08/01/24 09:21 250 MG Metronidazole 500 mg Q8HR PO 07/31/24 22:00 08/01/24 13:32 500 MG Hydralazine HCl 10 mg Q6HP PRN IV 07/31/24 17:45 08/01/24 01:48 10 MG objective GENERAL: Alert and oriented x 3. No acute distress. Obese. EYES: PERRL, EOMI. Anicteric. HENT: Moist mucous membranes. LUNGS: Clear to auscultation bilaterally. CARDIOVASCULAR: Regular rate and rhythm. ABDOMEN: Soft, non-tender and non-distended. EXTREMITIES: No edema. NEUROLOGIC: No focal neurological deficits. SKIN: Warm, dry. laboratory and microbiology Laboratory Tests 08/01/24 04:48 07/31/24 06:09 Test 08/01/24 04:48 Range/Units Serum Glucose 155 H 74-106 mg/dL Problem List Preprocedural cardiovascular examination. Sepsis with acute colitis. NSTEMI type 2 secondary to above. Hypertension. Dyslipidemia. Insulin-dependent diabetes mellitus. Obesity. Assessment/Plan Continued all current supportive medical care. [place] for pain management. Benazepril. IV Hydralazine for SBP >160. IV antibiotics as ordered. GI prophylactics. Additional plan as per the hospital course. Dietary Evaluation Review Comments: 1) Advance to [facility] 60 + cardiac diet 2) Refer CDE on DC Expected Outcomes/Goals: To meet >75% estimated needs Fu 2-3 days Plan discussed with: Patient NARAYAN LEBLANC MD Aug 01, 2024 14:26
[2024-08-02] VITALS (9 sets, daily range): BP systolic 144–195; BP diastolic 53–89; PULSE 63–89; RESP 16–20; TEMP 97.3–98.6; O2SAT 95–98
[2024-08-02] MEDS: MAGNESIUM CITRATE SOLUTION 300 ML BTL PO ONE (05:48)
[2024-08-02] MEDS: GOLYTELY 4L KIT PO ONE (05:49)
[2024-08-02] MEDS ORDERED: MIDAZOLAM HCL 5 MG/ML-1ML VIAL ONE (08:24)
[2024-08-02] MEDS ORDERED: SODIUM CHLORIDE LOCK 0 ML ONE (08:24)
[2024-08-02] MEDS: BENAZEPRIL HCL 10 MG TAB PO SCH (11:15)
--- NOTE | 2024-08-02 12:41 | DVHPN2 ---
Reviewed: Care Plan, H&P, Labs, Medications, Previous Orders, Radiology Changes from previous H/P or p: No Changes Eyes: No Pain, No Vision change, No Conjunctivae inflammation, No Eyelid inflammation, No Other, No Redness ENT: No Ear pain, No Ear discharge, No Nose pain, No Nose discharge, No Nose congestion, No Mouth pain, No Mouth swelling, No Throat pain, No Throat swelling, No Other Cardiovascular: No Chest Pain, No Palpitations, No Orthopnea, No Paroxysmal Noc. Dyspnea, No Edema, No Lt Headedness, No Other Respiratory: No Cough, No Dry, No Shortness of breath, No SOB with excertion, No Wheezing, No Hemoptysis, No Pleuritic Pain, No Sputum, No Other Gastrointestinal: Nausea; No Vomiting; Abdominal Pain, Diarrhea; No Constipation, No Melena, No Hematochezia, No Other Genitourinary: No Dysuria, No Frequency, No Incontinence, No Hematuria, No Retention, No Other Musculoskeletal: No other, No neck pain, No shoulder pain, No arm pain, No back pain, No hand pain, No leg pain, No foot pain Skin: No Rash, No Lesions, No Jaundice, No Bruising, No Other Objective Vitals Vital Signs Date Time Temp Pulse Resp B/P (MAP) Pulse Ox O2 Delivery O2 Flow Rate FiO2 08/02/24 11:17 195/81 08/02/24 09:00 97.8 67 18 98 97.8 08/01/24 20:00 Room Air* 0 21 Intake/Output Intake and Output 08/02/24 07:00 Intake Total 985 ml Balance 985 ml Intake Oral 985 ml # Voids 9 # Bowel Movements 9 Medications Current Medications Medications Dose Ordered Sig/Noreen Route Start Time Stop Time Status Last Admin Dose Admin Acetaminophen/ Hydrocodone Bitart 1 tab Q4HP PRN PO 07/29/24 14:00 08/02/24 11:16 1 TAB Ondansetron HCl 4 mg Q4HP PRN IV 07/29/24 14:00 Acetaminophen 650 mg Q6HP PRN PO 07/29/24 14:00 Paroxetine HCl 30 mg DAILY PO 07/30/24 10:00 08/02/24 11:15 30 MG Temazepam 15 mg QHSP PRN PO 07/29/24 14:30 Levothyroxine Sodium 25 mcg QAM PO 07/30/24 07:00 08/02/24 06:11 25 MCG Diagnostic Test (Pha) 1 strip ACHS 07/29/24 17:00 08/02/24 12:09 1 STRIP Insulin Human Regular HS SC 07/29/24 22:00 08/01/24 21:57 2 UNITS Insulin Human Regular AC SC 07/29/24 17:00 08/02/24 12:29 2 UNITS Dextrose 50 ml UD PRN IV 07/29/24 14:15 Diphenoxylate HCl/ Atropine 2.5 mg TID PRN PO 07/30/24 16:15 07/30/24 22:02 2.5 MG Cholestyramine Resin 4 gm DAILY@11 PO 07/31/24 11:00 08/02/24 11:22 4 GM Pantoprazole Sodium 40 mg DAILY IV 07/31/24 10:00 08/02/24 11:13 40 MG Saccharomyces Boulardii 250 mg DAILY PO 07/31/24 10:00 08/02/24 12:09 250 MG Metronidazole 500 mg Q8HR PO 07/31/24 22:00 08/02/24 05:49 500 MG Hydralazine HCl 10 mg Q6HP PRN IV 07/31/24 17:45 08/02/24 11:17 10 MG Sodium Chloride 1,000 ml @ 75 mls/hr [id number] IV 08/01/24 18:00 08/01/24 18:00 75 MLS/HR Benazepril HCl 20 mg DAILY PO 08/02/24 10:00 08/02/24 11:15 20 MG Laboratory Results Laboratory Tests 07/31/24 06:09 08/01/24 04:48 Urinalysis Test 07/29/24 07:44 Urine Color Yellow (Yellow) Urine Clarity Turbid (Clear) H Urine pH 5.0 (5.0-9.0) Urine Specific [place] 1.026 (1.001-1.035) Urine Protein 1+ (Negative) H Urine Ketones Negative (Negative) Urine Blood Negative /uL (Negative) Urine Nitrite Negative (Negative) Urine Bilirubin Negative (Negative) Urine Urobilinogen Normal mg/dL (Negative) Urine Leukocyte Esterase 3+ /uL (Negative) Urine RBC 4 /hpf (0 - 4) Urine Microscopic WBC 23 /HPF (0-5) H Urine Squamous Epithelial Cells Mod /hpf (<5) Urine Bacteria Few /hpf (None Seen) H Urine Hyaline Casts Many /lpf (0 - 2) Urine Mucus Few (None Seen) Urine Glucose Trace mg/dL (Normal) Microbiology Microbiology Date/Time Source Procedure Growth Status 07/30/24 18:45 Stool Stool Culture - Final Complete 07/30/24 18:45 Stool Shiga Toxin I & II - Final Complete 07/30/24 18:45 Stool Clostridium difficile Toxin Assay - Final Complete 07/29/24 15:56 Voided Urine Urine Culture - Final Complete 07/29/24 10:05 Blood Blood Culture - Preliminary NO GROWTH AFTER 72 HOURS OF INCUBATION. Resulted Labs and/or images reviewed: Labs reviewed by me, Image(s) reviewed by me Assessment/Plan Assessment/Plan Covering for Dr. Busby #1 abd pain with diarrhea ?sepsis: Getting colonoscopy today #2 dm: ssi #3 htn: benazepril #4 obesity #5 nstemi ?type [address] Colbert appreciated #6 uti: culture #7 acute renal failure ?vasomotor nephropathy: ivf #8 hypothyroidism: cont meds Plan discussed with: Patient Date of Service: Aug 02, 2024 Billing Provider: SILVIA MOJICA MD Common Visit Codes: [id number] INP/OBS CARE(HIGH) SILVIA MOJICA MD Aug 02, 2024 12:41
[2024-08-02] MEDS ORDERED: SODIUM CHLORIDE LOCK 10 ML ONE (14:17)
[2024-08-02] MEDS: fentaNYL CITRATE 100 MCG/2 ML VL ONE (14:21)
[2024-08-02] MEDS: diphenhdrAMINE HCL 50 MG/1 ML VL ONE (14:21)
[2024-08-02] MEDS: MIDAZOLAM HCL 5 MG/ML-1ML VIAL ONE (14:21)
--- NOTE | 2024-08-02 14:24 | DVHPN2 ---
Progress Note - Dictate Date Seen: Aug 02, 2024 Medical Necessity Reason Pt with a Central, PICC or Fol: No Subjective Patient was seen and evaluated in follow up. Patient is complaining of generalized pain. Patient is scheduled for colonoscopy today. Patient is cardiac clear for surgery. vital signs Vital Sign Date Time Temp Pulse Resp B/P (MAP) Pulse Ox O2 Delivery O2 Flow Rate FiO2 08/02/24 11:17 195/81 08/02/24 09:00 97.8 67 18 98 97.8 08/01/24 20:00 Room Air* 0 21 Total Intake and Output 08/01/24 08/01/24 08/02/24 15:00 23:00 07:00 Intake Total 585 ml 400 ml Balance 585 ml 400 ml medications Current Medications Medications Dose Ordered Sig/Noreen Route Start Time Stop Time Status Last Admin Dose Admin Acetaminophen/ Hydrocodone Bitart 1 tab Q4HP PRN PO 07/29/24 14:00 08/02/24 11:16 1 TAB Ondansetron HCl 4 mg Q4HP PRN IV 07/29/24 14:00 Acetaminophen 650 mg Q6HP PRN PO 07/29/24 14:00 Paroxetine HCl 30 mg DAILY PO 07/30/24 10:00 08/02/24 11:15 30 MG Temazepam 15 mg QHSP PRN PO 07/29/24 14:30 Levothyroxine Sodium 25 mcg QAM PO 07/30/24 07:00 08/02/24 06:11 25 MCG Diagnostic Test (Pha) 1 strip ACHS 07/29/24 17:00 08/02/24 12:09 1 STRIP Insulin Human Regular HS SC 07/29/24 22:00 08/01/24 21:57 2 UNITS Insulin Human Regular AC SC 07/29/24 17:00 08/02/24 12:29 2 UNITS Dextrose 50 ml UD PRN IV 07/29/24 14:15 Diphenoxylate HCl/ Atropine 2.5 mg TID PRN PO 07/30/24 16:15 07/30/24 22:02 2.5 MG Cholestyramine Resin 4 gm DAILY@11 PO 07/31/24 11:00 08/02/24 11:22 4 GM Pantoprazole Sodium 40 mg DAILY IV 07/31/24 10:00 08/02/24 11:13 40 MG Saccharomyces Boulardii 250 mg DAILY PO 07/31/24 10:00 08/02/24 12:09 250 MG Metronidazole 500 mg Q8HR PO 07/31/24 22:00 08/02/24 05:49 500 MG Hydralazine HCl 10 mg Q6HP PRN IV 07/31/24 17:45 08/02/24 11:17 10 MG Sodium Chloride 1,000 ml @ 75 mls/hr [id number] IV 08/01/24 18:00 08/01/24 18:00 75 MLS/HR Benazepril HCl 20 mg DAILY PO 08/02/24 10:00 08/02/24 11:15 20 MG objective GENERAL: Alert and oriented x 3. No acute distress. Obese. EYES: PERRL, EOMI. Anicteric. HENT: Moist mucous membranes. LUNGS: Clear to auscultation bilaterally. CARDIOVASCULAR: Regular rate and rhythm. ABDOMEN: Soft, non-tender and non-distended. EXTREMITIES: No edema. NEUROLOGIC: No focal neurological deficits. SKIN: Warm, dry. laboratory and microbiology Laboratory Tests 08/01/24 04:48 07/31/24 06:09 Test 08/01/24 04:48 Range/Units Serum Glucose 155 H 74-106 mg/dL Problem List Preprocedural cardiovascular examination. Sepsis with acute colitis. NSTEMI type 2 secondary to above. Hypertension. Dyslipidemia. Insulin-dependent diabetes mellitus. Obesity. Assessment/Plan Continued all current supportive medical care. [place] for pain management. Benazepril. IV Hydralazine for SBP >160. IV antibiotics as ordered. GI prophylactics. Additional plan as per the hospital course. Dietary Evaluation Review Comments: 1) Advance to [facility] 60 + cardiac diet 2) Refer CDE on DC Expected Outcomes/Goals: To meet >75% estimated needs Fu 2-3 days Plan discussed with: Patient NARAYAN LEBLANC MD Aug 02, 2024 13:07
--- NOTE | 2024-08-02 14:45 | DVHOP2 ---
Operative Report DATE OF OPERATION: 08/02/24 PROCEDURE: Colonoscopy with cold biopsy PREOPERATIVE INDICATION: The patient is a 79 -year-old female undergoing colonoscopy for recurrent diarrhea and abdominal pain POSTOPERATIVE DIAGNOSES: 1. Mild scattered diverticular disease more prominent in the sigmoid 2. Trace internal hemorrhoids otherwise normal examination up to the cecum and terminal ileum PROCEDURE PERFORMED BY: Lesli Higginbotham M.D. SCOPE: Olympus videocolonoscope. ASA CLASS: 2 PREOPERATIVE MEDICATIONS: Versed 4 mg, Fentanyl 100 mcg, Benadryl 50 mg PROCEDURE IN DETAIL: After obtaining an informed consent, the patient was placed on left lateral decubitus position. She was then sedated with the above medications. A rectal examination was performed that was normal. The colonoscope was then passed through the anus into the rectosigmoid and through the descending, transverse, and ascending colon up to the cecum with visualization of the appendiceal orifice, base of the cecum and the ileocecal valve. The colonoscope was then withdrawn. Distal 5-10 cm of the terminal ileum were normal No polyps or masses were seen. There was no clear-cut colitis except for minimal diverticular associated sigmoiditis Patient had mild left colon diverticular disease more prominent in the sigmoid. Random colon biopsies were obtained On retroflexion the patient had trace to 1+ internal hemorrhoids The patient tolerated the procedure well without difficulty. WITHDRAWAL TIME: 7 minutes QUALITY OF THE PREP: [place] Bowel Prep score: 9 COMPLICATIONS : None SPECIMENS: Random left colon biopsies DISPOSITION: Transfer back to the floor Stable PLAN: 1. Repeat colonoscopy in 10 years 2. Resume GI soft diet advance as tolerated 3. Continue conservative treatment with Imodium and fluid and fiber management 4. Outpatient follow up with me in 4-6 weeks to review results and discuss further management LESLI HIGGINBOTHAM MD Aug 02, 2024 14:45
[2024-08-02] MEDS: cloNIDine HCL 0.1 MG TAB PO STA (15:27)
[2024-08-02] MEDS ORDERED: cloNIDine HCL 0.1 MG TAB PO PRN (21:00)
[2024-08-03 05:00] VITALS: BP 151/50; PULSE 54; RESP 17; TEMP 97.6; O2SAT 98
[2024-08-03 09:00] VITALS: BP 175/55; PULSE 64; RESP 19; TEMP 98.1; O2SAT 94
[2024-08-03] MEDS ORDERED: LEVO500T91 PO (10:17)
[2024-08-03] MEDS ORDERED: METR-344 PO (10:17)
--- NOTE | 2024-08-03 10:18 | DVHPN2 ---
Reviewed: Care Plan, H&P, Labs, Medications, Previous Orders, Radiology Changes from previous H/P or p: No Changes Eyes: No Pain, No Vision change, No Conjunctivae inflammation, No Eyelid inflammation, No Other, No Redness ENT: No Ear pain, No Ear discharge, No Nose pain, No Nose discharge, No Nose congestion, No Mouth pain, No Mouth swelling, No Throat pain, No Throat swelling, No Other Cardiovascular: No Chest Pain, No Palpitations, No Orthopnea, No Paroxysmal Noc. Dyspnea, No Edema, No Lt Headedness, No Other Respiratory: No Cough, No Dry, No Shortness of breath, No SOB with excertion, No Wheezing, No Hemoptysis, No Pleuritic Pain, No Sputum, No Other Gastrointestinal: Nausea; No Vomiting; Abdominal Pain, Diarrhea; No Constipation, No Melena, No Hematochezia, No Other Genitourinary: No Dysuria, No Frequency, No Incontinence, No Hematuria, No Retention, No Other Musculoskeletal: No other, No neck pain, No shoulder pain, No arm pain, No back pain, No hand pain, No leg pain, No foot pain Skin: No Rash, No Lesions, No Jaundice, No Bruising, No Other Objective Vitals Vital Signs Date Time Temp Pulse Resp B/P (MAP) Pulse Ox O2 Delivery O2 Flow Rate FiO2 08/03/24 10:04 175/55 08/03/24 05:00 97.6 54 17 98 97.6 08/02/24 20:00 Room Air* 0 21 Intake/Output Intake and Output 08/03/24 07:00 Intake Total 1350 ml Balance 1350 ml Intake Oral 1250 ml IV Total 100 ml # Voids 11 # Bowel Movements 1 Medications Current Medications Medications Dose Ordered Sig/Noreen Route Start Time Stop Time Status Last Admin Dose Admin Acetaminophen/ Hydrocodone Bitart 1 tab Q4HP PRN PO 07/29/24 14:00 08/02/24 11:16 1 TAB Ondansetron HCl 4 mg Q4HP PRN IV 07/29/24 14:00 Acetaminophen 650 mg Q6HP PRN PO 07/29/24 14:00 Paroxetine HCl 30 mg DAILY PO 07/30/24 10:00 08/03/24 10:05 30 MG Temazepam 15 mg QHSP PRN PO 07/29/24 14:30 Levothyroxine Sodium 25 mcg QAM PO 07/30/24 07:00 08/03/24 06:37 25 MCG Diagnostic Test (Pha) 1 strip ACHS 07/29/24 17:00 08/03/24 06:39 1 STRIP Insulin Human Regular HS SC 07/29/24 22:00 08/02/24 22:00 2 UNITS Insulin Human Regular AC SC 07/29/24 17:00 08/03/24 06:42 2 UNITS Dextrose 50 ml UD PRN IV 07/29/24 14:15 Diphenoxylate HCl/ Atropine 2.5 mg TID PRN PO 07/30/24 16:15 07/30/24 22:02 2.5 MG Cholestyramine Resin 4 gm DAILY@11 PO 07/31/24 11:00 08/02/24 11:22 4 GM Pantoprazole Sodium 40 mg DAILY IV 07/31/24 10:00 08/03/24 10:04 40 MG Saccharomyces Boulardii 250 mg DAILY PO 07/31/24 10:00 08/03/24 10:04 250 MG Metronidazole 500 mg Q8HR PO 07/31/24 22:00 08/03/24 06:37 500 MG Hydralazine HCl 10 mg Q6HP PRN IV 07/31/24 17:45 08/02/24 11:17 10 MG Sodium Chloride 1,000 ml @ 75 mls/hr [id number] IV 08/01/24 18:00 08/01/24 18:00 75 MLS/HR Benazepril HCl 20 mg DAILY PO 08/02/24 10:00 08/03/24 10:04 20 MG Clonidine HCl 0.2 mg Q6HP PRN PO 08/02/24 21:00 Laboratory Results Laboratory Tests 07/31/24 06:09 08/01/24 04:48 Urinalysis Test 07/29/24 07:44 Urine Color Yellow (Yellow) Urine Clarity Turbid (Clear) H Urine pH 5.0 (5.0-9.0) Urine Specific [place] 1.026 (1.001-1.035) Urine Protein 1+ (Negative) H Urine Ketones Negative (Negative) Urine Blood Negative /uL (Negative) Urine Nitrite Negative (Negative) Urine Bilirubin Negative (Negative) Urine Urobilinogen Normal mg/dL (Negative) Urine Leukocyte Esterase 3+ /uL (Negative) Urine RBC 4 /hpf (0 - 4) Urine Microscopic WBC 23 /HPF (0-5) H Urine Squamous Epithelial Cells Mod /hpf (<5) Urine Bacteria Few /hpf (None Seen) H Urine Hyaline Casts Many /lpf (0 - 2) Urine Mucus Few (None Seen) Urine Glucose Trace mg/dL (Normal) Microbiology Microbiology Date/Time Source Procedure Growth Status 07/30/24 18:45 Stool Stool Culture - Final Complete 07/30/24 18:45 Stool Shiga Toxin I & II - Final Complete 07/30/24 18:45 Stool Clostridium difficile Toxin Assay - Final Complete 07/29/24 15:56 Voided Urine Urine Culture - Final Complete 07/29/24 10:05 Blood Blood Culture - Preliminary NO GROWTH AFTER 72 HOURS OF INCUBATION. Resulted Labs and/or images reviewed: Labs reviewed by me, Image(s) reviewed by me Assessment/Plan Assessment/Plan Covering for Dr. Busby #1 abd pain with diarrhea ?sepsis: Mild Diverticulosis and internal hemorrhoids by colonoscopy by GI Dr. Deepak Higginbotham #2 dm: ssi #3 htn: benazepril #4 obesity #5 nstemi ?type [address] Colbert appreciated #6 uti: culture #7 acute renal failure ?vasomotor nephropathy: ivf #8 hypothyroidism: cont meds C diff negative stool cultures negative, blood cultures negative, urine cultures negative Patient feels better son at the bedside explained the discharge plan with the help of twister tender Plan discussed with: Patient My Orders Orders - SILVIA MOJICA MD Procedure Category Date Status Time Clonidine Hcl Tablet PHA 08/02/24 In Process (Catapres Tablet) 21:00 Date of Service: Aug 03, 2024 Billing Provider: SILVIA MOJICA MD Common Visit Codes: [id number] INP/OBS CARE(HIGH) SILVIA MOJICA MD Aug 03, 2024 10:18
--- NOTE | 2024-08-03 10:22 | DVHDS2 ---
Discharge Summary Date of Admission Jul 29, 2024 at 13:56 Date of Discharge: Aug 03, 2024 Admitting Diagnosis Abdominal pain Wounds: None Labs/Diagnostic Data: Laboratory Results Test 08/03/24 05:12 08/01/24 04:48 07/31/24 06:09 07/30/24 18:45 POC Glucose 140 mg/dl (70-106) Sodium Level 143 mmol/L (136-145) Potassium Level 3.6 mmol/L (3.5-5.1) Chloride Level 110 mmol/L (98-107) Carbon Dioxide Level 22 mmol/L (20-31) Anion Gap 11 (5-15) Blood Urea Nitrogen 10 mg/dL (9-23) Creatinine 0.71 mg/dL (0.550-1.02) Glomerular Filtration Rate Calc 88 mL/min (>90) BUN/Creatinine Ratio 14.1 (10.0-20.0) Serum Glucose 155 mg/dL (74-106) Calcium Level 8.2 mg/dL (8.7-10.4) Magnesium Level 1.9 mg/dL (1.6-2.6) White Blood Count 4.1 10^3/uL (4.4-10.8) Red Blood Count 3.53 10^6/uL (4.0-5.20) Hemoglobin 10.1 g/dL (12.2-16.2) Hematocrit 30.3 % (36.0-46.0) Mean Corpuscular Volume 85.8 fL (80.0-100.0) Mean Corpuscular Hemoglobin 28.7 pg (28.0-32.0) Mean Corpuscular Hemoglobin Concent 33.5 g/dL (32.0-36.0) Red Cell Distribution Width 14.5 % (11.8-14.3) Platelet Count 313 10^3/uL (140-450) Mean Platelet Volume 7.6 fL (6.9-10.8) Neutrophils (%) (Auto) 39.7 % (37.0-80.0) Lymphocytes (%) (Auto) 43.1 % (10.0-50.0) Monocytes (%) (Auto) 12.1 % (0.0-12.0) Eosinophils (%) (Auto) 4.6 % (0.0-7.0) Basophils (%) (Auto) 0.5 % (0.0-2.0) Neutrophils # (Auto) 1.6 10 ^3/uL (1.6-8.6) Lymphocytes # (Auto) 1.8 10 ^3/uL (0.4-5.4) Monocytes # (Auto) 0.5 10 ^3/uL (0-1.3) Eosinophils # (Auto) 0.2 10 ^3/uL (0-0.8) Basophils # (Auto) 0 10 ^3/uL (0-0.2) Nucleated Red Blood Cells 0.1 % Prothrombin Time 10.8 sec (9.3-11.8) Prothrombin Time INR 1.02 (0.9-1.15) Activated Partial Thromboplast Time 25.9 SEC (24.5-34.5) Stool for White Cells None seen Test 07/30/24 09:13 07/30/24 05:27 07/29/24 15:29 07/29/24 08:25 Lactic Acid Level 1.2 mmol/L (0.4-2.0) Total Bilirubin 0.3 mg/dL (0.2-1.0) Aspartate Amino Transferase (AST) 23 U/L (<34) Alanine Aminotransferase (ALT) 21 U/L (7-40) Alkaline Phosphatase 70 U/L (46-116) Total Protein 6.2 g/dL (5.7-8.2) Albumin 3.7 g/dL (3.2-4.8) Lipase 37 U/L (12-53) Troponin I High Sensitivity 62 ng/L (</=34) Hepatitis A IgM Antibody Negative Hepatitis B Surface Antigen Negative (Negative) Hepatitis B Core IgM Antibody Negative (Negative) Hepatitis C Antibody Negative (Negative) Hemoglobin A1c 8.2 % A1C (<5.7) Test 07/29/24 07:44 Urine Color Yellow (Yellow) Urine Clarity Turbid (Clear) Urine pH 5.0 (5.0-9.0) Urine Specific [place] 1.026 (1.001-1.035) Urine Protein 1+ (Negative) Urine Ketones Negative (Negative) Urine Blood Negative /uL (Negative) Urine Nitrite Negative (Negative) Urine Bilirubin Negative (Negative) Urine Urobilinogen Normal mg/dL (Negative) Urine Leukocyte Esterase 3+ /uL (Negative) Urine RBC 4 /hpf (0 - 4) Urine Microscopic WBC 23 /HPF (0-5) Urine Squamous Epithelial Cells Mod /hpf (<5) Urine Bacteria Few /hpf (None Seen) Urine Hyaline Casts Many /lpf (0 - 2) Urine Mucus Few (None Seen) Urine Glucose Trace mg/dL (Normal) Other Laboratory Tests 08/01/24 04:48 07/31/24 06:09 Brief Hx & Hospital Course: 79-year-old female with a history of diabetes hypertension hypothyroidism came in for generalized abdominal pain. Possible diarrhea treated with the Flagyl. Colonoscopy by Dr. Deepak Higginbotham showed mild diverticulosis and internal hemorrhoids. Comorbid conditions appropriately managed. Non ST-elevation [place] type [address] Colbert AARON secondary to vasomotor nephropathy resolved with the IV fluids. C diff negative stool cultures negative blood cultures negative urine cultures negative discharged home in stable condition prescription transmitted to the pharmacy. Discharge plan explained to the patient and the son with the help of dynamic etching processor Consults/Reason for consult GI Dr. Deepak Higginbotham Operations or Procedures CT abdomen pelvis without contrast Colonoscopy Condition at Discharge: Fair Final Diagnosis/Problems List #1 abd pain with diarrhea ?sepsis: Mild Diverticulosis and internal hemorrhoids by colonoscopy by GI Dr. Deepak Higginbotham #2 dm: ssi #3 htn: benazepril #4 obesity #5 nstemi ?type [address] Colbert appreciated #6 uti: culture #7 acute renal failure ?vasomotor nephropathy: ivf #8 hypothyroidism: cont meds C diff negative stool cultures negative, blood cultures negative, urine cultures negative Discharge Disposition: Home Discharge Instruct/Medications Diet: Cardiac 2g Na,low cholest Activity: Light activity Follow Up/Referral: Follow up with the primary Dr Medications: Levaquin Flagyl Transmitted to [facility] 35 (Time taken for discharge summary 35 minutes) Discharge Statement: "Patient was advised to return to the ER or call 911 if any headaches, dizziness, shortness of breath, chest pain, abdominal pain, bleeding, fevers, or worsening of medical condition. Patient was counseled about treatment plan, medications, possible side effects, patientverbalized understanding. All questions were answered to the best of my ability. This discharge took greater then 30 minutes in planning, reviewing documentation, counseling the patient, and discussing with other team members." ASSESSMENT ASSESSMENT Hospital Course Improved Assessment #1 abd pain with diarrhea ?sepsis: Mild Diverticulosis and internal hemorrhoids by colonoscopy by GI Dr. Deepak Higginbotham #2 dm: ssi #3 htn: benazepril #4 obesity #5 nstemi ?type [address] Colbert appreciated #6 uti: culture #7 acute renal failure ?vasomotor nephropathy: ivf #8 hypothyroidism: cont meds C diff negative stool cultures negative, blood cultures negative, urine cultures negative Date of Service: Aug 03, 2024 Billing Provider: SILVIA MOJICA MD Common Visit Codes: [id number]-YYD/[id number] DISCH DAY >30min SILVIA MOJICA MD Aug 03, 2024 10:22
[2024-08-03 11:44] VITALS: BP 175/55; TEMP 36.7
[2024-08-03 13:00] VITALS: BP 189/79; PULSE 62; RESP 20; TEMP 97.8; O2SAT 98
--- NOTE | 2024-08-03 23:13 | DVHPN2 ---
Progress Note - Dictate Date Seen: Aug 03, 2024 Medical Necessity Reason Pt with a Central, PICC or Fol: No Subjective Patient was seen and evaluated in follow up. Patient is s/p colonoscopy by Dr. Deepak Higginbotham which showed mild scattered diverticular disease more prominent in the sigmoid. Trace internal hemorrhoids otherwise normal examination up to the cecum and terminal ileum. Patient is cardiac stable for discharge. vital signs Vital Sign Date Time Temp Pulse Resp B/P (MAP) Pulse Ox O2 Delivery O2 Flow Rate FiO2 08/03/24 13:34 189/79 08/03/24 13:00 97.8 62 20 98 97.8 08/03/24 08:00 Room Air* 0 21 Total Intake and Output 08/02/24 08/02/24 08/03/24 15:00 23:00 07:00 Intake Total 100 ml 1100 ml 150 ml Balance 100 ml 1100 ml 150 ml objective GENERAL: Alert and oriented x 3. No acute distress. Obese. EYES: PERRL, EOMI. Anicteric. HENT: Moist mucous membranes. LUNGS: Clear to auscultation bilaterally. CARDIOVASCULAR: Regular rate and rhythm. ABDOMEN: Soft, non-tender and non-distended. EXTREMITIES: No edema. NEUROLOGIC: No focal neurological deficits. SKIN: Warm, dry. laboratory and microbiology Laboratory Tests 08/01/24 04:48 07/31/24 06:09 Test 08/01/24 04:48 Range/Units Serum Glucose 155 H 74-106 mg/dL Problem List Preprocedural cardiovascular examination. Sepsis with acute colitis. NSTEMI type 2 secondary to above. Hypertension. Dyslipidemia. Insulin-dependent diabetes mellitus. Obesity. Assessment/Plan Continued all current supportive medical care. [place] for pain management. Benazepril. IV Hydralazine for SBP >160. IV antibiotics as ordered. GI prophylactics. Additional plan as per the hospital course. Dietary Evaluation Review Comments: 1) Advance to [facility] 60 + cardiac diet 2) Refer CDE on DC Expected Outcomes/Goals: To meet >75% estimated needs Fu 2-3 days Plan discussed with: Patient NARAYAN LEBLANC MD Aug 03, 2024 15:28
== END 2024-08-03 14:46 | disposition home or self-care (01) | DRG 871 ==
LOC: ER 07:35 → OVERFLOW 13:56 → WEST WING 14:06
PROVIDERS: ADMIT Family Medicine; ATTEND Family Medicine
PROC: 0DBN8ZX Excision of Sigmoid Colon, Via Natural or Artificial Opening Endoscopic, Diagnostic (ICD-10-PCS; principal; 2024-08-02 14:16)
DX: A41.9 Sepsis, unspecified organism (principal); I21.A1 Myocardial infarction type 2; N17.0 Acute kidney failure with tubular necrosis; E87.20 Acidosis, unspecified; N39.0 Urinary tract infection, site not specified; A04.9 Bacterial intestinal infection, unspecified; Z68.30 Body mass index [BMI] 30.0-30.9, adult; E11.65 Type 2 diabetes mellitus with hyperglycemia; F32.A Depression, unspecified; K76.0 Fatty (change of) liver, not elsewhere classified; E78.5 Hyperlipidemia, unspecified; I10 Essential (primary) hypertension; E66.9 Obesity, unspecified; K57.30 Diverticulosis of large intestine without perforation or abscess without bleeding; E03.9 Hypothyroidism, unspecified; F41.9 Anxiety disorder, unspecified; I27.20 Pulmonary hypertension, unspecified; J45.909 Unspecified asthma, uncomplicated; K64.8 Other hemorrhoids; Z79.4 Long term (current) use of insulin; Z82.49 Family history of ischemic heart disease and other diseases of the circulatory system; Z82.5 Family history of asthma and other chronic lower respiratory diseases; Z83.3 Family history of diabetes mellitus; Z90.710 Acquired absence of both cervix and uterus; Z90.49 Acquired absence of other specified parts of digestive tract; Z98.51 Tubal ligation status
CPT/HCPCS: 36415; 45380; 74176; 80048; 80053; 80074; 81001; 82962; 83036; 83605; 83690; 83735; 84484; 85025; 85048; 85610; 85730; 87040; 87045; 87086; 87427; 87493; 93005; 93306; 96365; 96372; 96375; 99291; G0378; J1815; J2250; J2470; J3490